=== PATIENT | male | born 1985 | race African-American/Black ===

== ENCOUNTER 2024-07-14 07:00 | Inpatient (IN) | payer BC, MEDICAID ==
[~2024-07-14] VITALS: Ht 182.9 cm; Wt 129.2 kg
--- NOTE | 2024-07-14 07:53 | ED.PDOC ---
GI ASSESSMENT HPI Comments 38 y/o M, presents to the ED for CC of abdominal pain. Patient states, he has been experiencing RUQ abdominal pain with associated symptoms of fever, shortness of breath, and sweats x8 days. Patient comments on, dysuria and dark colored bowel moments. Patient smokes tobacco and marijuana; drinks ETOH occasionally. Patient denies nausea, vomiting, diarrhea, constipation or poor appetite. No other symptoms or modifying factors at this time. Chief Complaint: Abdominal Pain Time Seen by MD: 07:44 Reviewed Notes: Nurses Notes, Medications, Allergies Allergies: Coded Allergies: NO KNOWN ALLERGIES (Unverified , 07/14/24) Information Source: Patient, Significant Other Mode of Arrival: Ambulatory Timing: Days Duration: Since onset Prehospital treatment: None Quality: Sharp Vomitus: None Stool: Other (DARK COLORED) Severity: Moderate Recent Hx of: None Pain Location: RUQ Modifying Factors: Nothing Associated sign and symptoms: Melena, None Past Medical History PAST MEDICAL HISTORY: Denies Surgical History: Denies all surgeries Family History Family History: Unknown Social History Smoker: Cigarettes Alcohol: Occasionally Drugs: Marijuana Lives In: Home Constitutional: reports: fever, sweats; denies: chills, diaphoresis, fatigue, malaise, weakness, others EENTM: denies: blurred vision, double vision, ear bleeding, ear discharge, ear drainage, ear pain, ear ringing, eye pain, eye redness, hearing loss, mouth pain, mouth swelling, nasal discharge, nose bleeding, nose congestion, nose pain, photophobia, tearing, throat pain, throat swelling, voice changes, others Respiratory: reports: shortness of breath; denies: cough, hemoptysis, orthopnea, SOB at rest, SOB with excertion, stridor, wheezing, others Cardiovascular: denies: chest pain, dizzy spells, diaphoresis, Dyspnea on exertion, edema, irregular heart beat, left arm pain, lightheadedness, palpitations, PND, syncope, others Gastrointestinal: reports: abdominal pain; denies: abdomen distended, blood streaked bowels, constipated, diarrhea, dysphagia, difficulty swallowing, hematemesis, melena, nausea, poor appetite, poor fluid intake, rectal bleeding, rectal pain, vomiting, others Genitourinary: denies: burning, dysuria, flank pain, frequency, hematuria, incontinence, penile discharge, penile sore, pain, testicle pain, testicle swelling, urgency, others Neurological: denies: dizziness, fainting, headache, left sided numbness, left sided weakness, numbness, paresthesia, pre-existing deficit, right sided numbness, right sided weakness, seizure, speech problems, tingling, tremors, weakness, others Musculoskeletal: denies: back pain, gout, joint pain, joint swelling, muscle pain, muscle stiffness, neck pain, others Integumetry: denies: bruises, change in color, change in hair/nails, dryness, laceration, lesions, lumps, rash, wounds, others Allergic/Immunocompromised: denies: Difficulty Healing, Frequent Infections, Hives, Itching, others Hematologic/Lymphatic: denies: anemia, blood clots, easy bleeding, easy bruising, swollen glands, others Endocrine: denies: excessive hunger, excessive sweating, excessive thirst, excessive urination, flushing, intolerance to cold, intolerance to heat, unexplained weight gain, unexplained weight loss, others Psychiatric: denies: anxiety, bipolar disorder, depression, hopeless, panic disorder, schizophrenia, sleepless, suicidal, others All Other Systems: Reviewed and Negative Physical Exam General Appearance: Moderate Distress HEENT: Normal ENT Inspection, Pharynx Normal, TMs Normal Neck: Full Range of Motion, Non-Tender, Normal, Normal Inspection Respiratory: Chest Non-Tender, Lungs Clear, No Accessory Muscle Use, No Respiratory Distress, Normal Breath Sounds Cardiovascular: No Edema, No JVD, No Murmur, No Gallop, Normal Peripheral Pulses, Tachycardia Breast Exam: Deferred Gastrointestinal: No Organomegaly, Non Tender, No Pulsatile Mass, Normal Bowel Sounds, Soft Genitalia: Deferred Pelvic: Deferred Rectal: Deferred Extremities: No calf tenderness, Normal capillary refill, Normal inspection, Normal range of motion, Non-tender, No pedal edema Musculoskeletal : Apperance: Normal Neurologic: Alert, raftsman II-XII nml as Tested, No Motor Deficits, Normal Affect, Normal Mood, No Sensory Deficits Cerebellar Function: Normal Reflexes: Normal Skin: Dry, Normal Color, Warm Peripheral Pulses: 3+ Radial (R), 3+ Radial (L) Lymphatic: No Adenopathy Was a procedure done? Was a procedure done?: No GI differential Dx Differential Diagnosis: Bowel Obstruction, Constipation, Esophagitis, Gastritis/PUD, Gastroenteritis, Urolithiasis, Electrolyte Imbalance, Food Poisoning, Bacterial, Viral X-Ray, Labs, Meds, VS Vital Signs Date Time Temp Pulse Resp B/P (MAP) Pulse Ox O2 Delivery O2 Flow Rate FiO2 07/14/24 07:27 99.7 105 16 127/58 (81) 98 Lab Test 07/14/24 08:43 Range/Units White Blood Count 18.6 H 4.4-10.8 10^3/uL Red Blood Count 3.40 L 4.5-5.90 10^6/uL Hemoglobin 10.2 L 13.5-17.5 g/dL Hematocrit 30.7 L 41.0-53.0 % Mean Corpuscular Volume 90.4 80.0-100.0 fL Mean Corpuscular Hemoglobin 30.1 28.0-32.0 pg Mean Corpuscular Hemoglobin Concent 33.3 32.0-36.0 g/dL Red Cell Distribution Width 14.5 H 11.8-14.3 % Platelet Count 362 140-450 10^3/uL Mean Platelet Volume 7.2 6.9-10.8 fL Neutrophils (%) (Auto) 79.7 37.0-80.0 % Lymphocytes (%) (Auto) 8.7 L 10.0-50.0 % Monocytes (%) (Auto) 11.4 0.0-12.0 % Eosinophils (%) (Auto) 0.1 0.0-7.0 % Basophils (%) (Auto) 0.1 0.0-2.0 % Neutrophils # (Auto) 14.8 H 1.6-8.6 10 ^3/uL Lymphocytes # (Auto) 1.6 0.4-5.4 10 ^3/uL Monocytes # (Auto) 2.1 H 0-1.3 10 ^3/uL Eosinophils # (Auto) 0 0-0.8 10 ^3/uL Basophils # (Auto) 0 0-0.2 10 ^3/uL Nucleated Red Blood Cells 0.0 % Sodium Level Pending Potassium Level Pending Chloride Level Pending Carbon Dioxide Level Pending Anion Gap Pending Blood Urea Nitrogen Pending Creatinine Pending Glomerular Filtration Rate Calc Pending BUN/Creatinine Ratio Pending Serum Glucose Pending Calcium Level Pending Lipase Pending Patient alert. Complaining of abdominal pain. Abdomen is soft. Vitals stable. He does not take care himself. WBC elevated. Possible colitis. Establish intravenous access. Was given fluids pain Was given Rocephin. Was given Flagyl. He is anemic. Check for reticulocyte count. Explained to the patient. Continue cardiac monitoring. Time of 1ST Reevaluation: 08:04 Reevaluation 1ST: Unchanged Patient Education/Counseling: Diagnosis, Treatment Family Education/Counseling: Diagnosis, Treatment Departure 1 Departure Time of Disposition: 09:33 Impression: Primary Impression: Sepsis, unspecified organism Qualified Codes: A41.9 - Sepsis, unspecified organism Additional Impression: Nonspecific colitis Disposition: ADMITTED INPATIENT Admit to: Med Surg Condition: Guarded Critical Care Note Critical Care Time?: No Stability Stability form required: No Heart Score Heart Score: Heart Score Response (Comments) Value History N/A 0 EKG N/A 0 Age N/A 0 Risk Factors N/A 0 Troponin N/A 0 Total 0 I personally scribed for ALVIN ARRIAZA MD ([email or web address]) on 07/14/24 at 07:53. Electronically submitted by Karla Ward ([email or web address]). ALVIN ARRIAZA MD Jul 14, 2024 07:53
[2024-07-14 09:19] LABS: Basophils # (auto) 0 10 ^3/uL (0-0.2); Basophils % (auto) 0.1 % (0.0-2.0); Eosinophils # (auto) 0 10 ^3/uL (0-0.8); Eosinophils % (auto) 0.1 % (0.0-7.0); Hematocrit 30.7 % (41.0-53.0); Hemoglobin 10.2 g/dL (13.5-17.5); Lymphocytes # (auto) 1.6 10 ^3/uL (0.4-5.4); Lymphocytes % (auto) 8.7 % (10.0-50.0); Mean Corpuscular Hemoglobin 30.1 pg (28.0-32.0); Mean Corpuscular Hgb Conc. 33.3 g/dL (32.0-36.0); Mean Corpuscular Volume 90.4 fL (80.0-100.0); Monocytes # (auto) 2.1 10 ^3/uL (0-1.3); Monocytes % (auto) 11.4 % (0.0-12.0); Neutrophils # (auto) 14.8 10 ^3/uL (1.6-8.6); Neutrophils % (auto) 79.7 % (37.0-80.0); Platelet Count (auto) 362 10^3/uL (140-450); Red Cell Distribution Width 14.5 % (11.8-14.3); White Blood Cell 18.6 10^3/uL (4.4-10.8)
[2024-07-14 09:25] LABS: Anion Gap 10 (5-15); Carbon Dioxide 27 mmol/L (20-31)
[2024-07-14 09:30] LABS: BUN/Creatinine Ratio 17.2 (10.0-20.0)
[2024-07-14 09:34] LABS: Blood Urea Nitrogen 23 mg/dL (9-23); Calcium 8.7 mg/dL (8.7-10.4); Chloride 93 mmol/L (98-107); Glucose 108 mg/dL (74-106); Potassium 3.4 mmol/L (3.5-5.1); Sodium 130 mmol/L (136-145)
[2024-07-14] MEDS: cefTRIAXone 1GM/50ML D5W 50 ML IV ONE (09:45)
[2024-07-14] MEDS: SODIUM CHLORIDE 0.9% 1,000 ML IV ONE ×2 (09:45)
[2024-07-14] MEDS: metroNIDAZOLE 500MG/100ML 100 ML IV ONE (09:45)
[2024-07-14 09:55] LABS: Lipase 25 U/L (12-53)
[2024-07-14] MEDS: POTASSIUM CHL 20 Meq TABLET PO ONE (17:21)
[2024-07-14] MEDS ORDERED: HYDROcodone-ACET 5/325MG TAB PO PRN (17:30)
[2024-07-14] MEDS ORDERED: MORPHINE SULFATE INJ 2 MG/ml SYRG IV PRN (17:30)
[2024-07-14] MEDS: PIPERACILLIN-TAZOB 3.375GM 100 ML IV ONE (17:30)
[2024-07-14] MEDS ORDERED: ONDANSETRON HCL 4 MG/2 ML VIAL IV PRN (17:30)
--- NOTE | 2024-07-14 17:35 | DVHHP2 ---
History of Present Illness Reason for Visit: Black running stool, dysuria and abdominal pain History of Present Illness Kody Ramirez is a 38-year-old male with no past medical history who presents to the ED for abdominal pain, black runny stool, dysuria, decreased appetite, dysuria, fevers, and sweats x8 days. Patient denies any recent sick contacts or recent ingestion of spoiled food. Patient denies any chest pain, shortness of breath, nausea, vomiting, lightheadedness, weakness, and dizziness. Past Surgical History: None Family History: None Smoke: <1 pack per day ALCOHOL: occassional Drugs: Marijuana Lives: with Family Domestic Violence: Neg Review of Systems Constitutional: No: Fever, Chills, Sweats, Weakness, Malaise, Other Eyes: No: Pain, Vision change, Conjunctivae inflammation, Eyelid inflammation, Other, Redness ENT: No: Ear pain, Ear discharge, Nose pain, Nose discharge, Nose congestion, Mouth pain, Mouth swelling, Throat pain, Throat swelling, Other Respiratory: No: Cough, Dry, Shortness of breath, SOB with excertion, Wheezing, Hemoptysis, Pleuritic Pain, Sputum, Wheezing, Other Cardiovascular: No: Chest Pain, Palpitations, Orthopnea, Paroxysmal Noc. Dyspnea, Edema, Lt Headedness, Other Gastrointestinal: Abdominal Pain, Diarrhea, Melena; No: Nausea, Vomiting, Constipation, Hematochezia, Other Genitourinary: Dysuria, Frequency; No Incontinence, No Hematuria, No Retention, No Other Musculoskeletal: No: other, neck pain, shoulder pain, arm pain, back pain, hand pain, leg pain, foot pain Skin: No: Rash, Lesions, Jaundice, Bruising, Other Neurological: No: Weakness, Numbness, Incoordination, Change in speech, Confusion, Seizures, Other Allergies: Coded Allergies: NO KNOWN ALLERGIES (Unverified , 07/14/24) Medications Current Medications Medications Dose Ordered Sig/Herlinda Route Start Time Stop Time Status Last Admin Dose Admin Piperacillin Sod/ Tazobactam Sod 100 ml @ 25 mls/hr Q8HR IV 07/14/24 22:00 UNV Exam Vital Signs Vital Signs Date Time Temp Pulse Resp B/P (MAP) Pulse Ox O2 Delivery O2 Flow Rate FiO2 07/14/24 17:14 97.9 115 18 121/78 (92) 95 97.9 07/14/24 11:00 Room Air* 0 21 General Appearance: Alert, Oriented X3, Cooperative, No acute distress HEENT: Atraumatic, PERRLA, EOMI, Mucous membr. moist/pink Respiratory: Clear to auscultation, Normal air movement Cardiovascular: Normal S1, Normal S2, No murmurs Abdominal: Soft Extremities: No clubbing, No cyanosis, No edema, Normal pulses, No tenderness/swelling Skin: No rashes, No breakdown, No significant lesion Neuro: Normal gait, Normal speech, Strength at 5/5 X4 ext, Normal tone, Sensation intact Psych/Mental Status: Mental status NL, Mood NL Labs/Xrays Labs Test 07/14/24 08:43 Range/Units White Blood Count 18.6 H 4.4-10.8 10^3/uL Red Blood Count 3.40 L 4.5-5.90 10^6/uL Hemoglobin 10.2 L 13.5-17.5 g/dL Hematocrit 30.7 L 41.0-53.0 % Mean Corpuscular Volume 90.4 80.0-100.0 fL Mean Corpuscular Hemoglobin 30.1 28.0-32.0 pg Mean Corpuscular Hemoglobin Concent 33.3 32.0-36.0 g/dL Red Cell Distribution Width 14.5 H 11.8-14.3 % Platelet Count 362 140-450 10^3/uL Mean Platelet Volume 7.2 6.9-10.8 fL Neutrophils (%) (Auto) 79.7 37.0-80.0 % Lymphocytes (%) (Auto) 8.7 L 10.0-50.0 % Monocytes (%) (Auto) 11.4 0.0-12.0 % Eosinophils (%) (Auto) 0.1 0.0-7.0 % Basophils (%) (Auto) 0.1 0.0-2.0 % Neutrophils # (Auto) 14.8 H 1.6-8.6 10 ^3/uL Lymphocytes # (Auto) 1.6 0.4-5.4 10 ^3/uL Monocytes # (Auto) 2.1 H 0-1.3 10 ^3/uL Eosinophils # (Auto) 0 0-0.8 10 ^3/uL Basophils # (Auto) 0 0-0.2 10 ^3/uL Nucleated Red Blood Cells 0.0 % Sodium Level 130 L 136-145 mmol/L Potassium Level 3.4 L 3.5-5.1 mmol/L Chloride Level 93 L 98-107 mmol/L Carbon Dioxide Level 27 20-31 mmol/L Anion Gap 10 5-15 Blood Urea Nitrogen 23 9-23 mg/dL Creatinine 1.34 H 0.700-1.30 mg/dL Glomerular Filtration Rate Calc 70 >90 mL/min BUN/Creatinine Ratio 17.2 10.0-20.0 Serum Glucose 108 H 74-106 mg/dL Lactic Acid Level 1.2 0.4-2.0 mmol/L Calcium Level 8.7 8.7-10.4 mg/dL Lipase 25 12-53 U/L Assessment/Plan Assessment/Plan Assessment/Plan: Intractable abdominal pain rule out GI bleed Leukocytosis rule out sepsis Anemia Hyponatremia CLINT Dysuria rule out UTI Labs NS 2 L given ED IV antibiotics-Flagyl +ceftriaxone Chest x-ray Lactic Blood cultures Lipase UA Stool occult CT abdomen and pelvis Urine culture ESR CRP GI consult A.m. 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
--- NOTE | 2024-07-14 18:03 | DVH ---
EXAM: CT Abdomen and Pelvis Without Intravenous Contrast CLINICAL INDICATION: abd pain TECHNIQUE: Axial computed tomography images of the abdomen and pelvis without intravenous contrast. This CT exam was performed using one or more of the following dose reduction techniques: automated exposure control, adjustment of the mA and/or kV according to patient size, and/or use of iterative r econstruction technique. CONTRAST: COMPARISON: None FINDINGS: LUNG BASES: Bibasilar atelectasis or scarring. ABDOMEN: LIVER: Multiple ill-defined hypodense lesions of the liver. Further characterization with MRI or CT of the abdomen using liver mass protocol is recommended. GALLBLADDER AND BILE DUCTS: Unremarkable. No calcified stones. No ductal dilation. PANCREAS: Unremarkable. No ductal dilation. SPLEEN: Unremarkable. No splenomegaly. ADRENALS: Unremarkable. No mass. KIDNEYS AND URETERS: Unremarkable. No stones within either kidney. No hydronephrosis. STOMACH AND BOWEL: Colonic diverticulosis. No obstruction. No mucosal thickening. PELVIS: APPENDIX: Normal appendix. BLADDER: Unremarkable. No stones. REPRODUCTIVE: Unremarkable as visualized. ABDOMEN and PELVIS: INTRAPERITONEAL SPACE: Unremarkable. No free air. No significant fluid collection. BONES/JOINTS: No acute fracture. No dislocation. SOFT TISSUES: Unremarkable. VASCULATURE: Unremarkable. No abdominal aortic aneurysm. LYMPH NODES: Unremarkable. No enlarged lymph nodes. OTHER FINDINGS: . . . . . .. IMPRESSION: 1. Normal appendix. 2. Multiple ill-defined hypodense lesions of the liver. Further characterization with MRI or CT of t he abdomen using liver mass protocol is recommended. 3. No obstructive uropathy.
[2024-07-14 18:30] LABS: Urine Amorphous Crystal FEW /hpf (None Seen); Urine Bacteria FEW /hpf (None Seen); Urine Blood TRACE /uL (Negative); Urine Clarity Clear (Clear); Urine Color Yellow (Yellow); Urine Hyaline Cast FEW /lpf (0 - 2); Urine Protein, UAD 1+ (Negative); Urine Specific Gravity 1.021 (1.001-1.035); Urine Squamous Epithelial Cell FEW /hpf (<5); Urine Urobilinogen 3 mg/dL (Negative); Urine WBC 3 /HPF (0-3)
[2024-07-14 18:43] LABS: Amphetamine Screen, Urine Neg (NEGATIVE); Barbiturate Scree,Urine Neg (NEGATIVE); Benzodiazephine Screen, Urine Neg (NEGATIVE); Cannabinoid Screen, Urine Pos (NEGATIVE); Cocaine Screen, Urine Neg (NEGATIVE); Opiate Scree,Urine Neg (NEGATIVE); Phencyclidine Screen, Urine Neg (NEGATIVE)
[2024-07-14 20:23] LABS: Erythrocyte Sedimentation Rate 109 mm/hr (0-20)
[2024-07-14] MEDS: SODIUM CHLORIDE 0.9% 1,000 ML IV SCH (22:00)
[2024-07-14] MEDS: metroNIDAZOLE 500MG/100ML 100 ML IV SCH (22:11)
[2024-07-14] MEDS: PIPERACILLIN-TAZOB 3.375GM 100 ML IV SCH (22:12)
[2024-07-14] MEDS: ACETAMINOPHEN 325 MG TAB PO PRN (22:54)
[2024-07-15] VITALS (7 sets, daily range): BP systolic 102–129; BP diastolic 68–75; PULSE 92–109; RESP 18–22; TEMP 98.5–101.5; O2SAT 90–100
[2024-07-15 08:00] LABS: Basophils # (auto) 0 10 ^3/uL (0-0.2); Basophils % (auto) 0.1 % (0.0-2.0); Eosinophils # (auto) 0 10 ^3/uL (0-0.8); Eosinophils % (auto) 0.1 % (0.0-7.0); Hematocrit 28.9 % (41.0-53.0); Lymphocytes # (auto) 1.8 10 ^3/uL (0.4-5.4); Lymphocytes % (auto) 8.9 % (10.0-50.0); Mean Corpuscular Hemoglobin 31.2 pg (28.0-32.0); Mean Corpuscular Hgb Conc. 34.5 g/dL (32.0-36.0); Mean Corpuscular Volume 90.5 fL (80.0-100.0); Monocytes % (auto) 10.2 % (0.0-12.0); Neutrophils # (auto) 16.1 10 ^3/uL (1.6-8.6); Neutrophils % (auto) 80.7 % (37.0-80.0); Nucleated Red Blood Cells % 0.1 %; Platelet Count (auto) 400 10^3/uL (140-450); Red Blood Cells 3.19 10^6/uL (4.5-5.90); Red Cell Distribution Width 14.7 % (11.8-14.3)
[2024-07-15 08:22] LABS: Albumin 4.2 g/dL (3.2-4.8); Anion Gap 11 (5-15); BUN/Creatinine Ratio 16.1 (10.0-20.0); Calcium 8.7 mg/dL (8.7-10.4); Carbon Dioxide 25 mmol/L (20-31); Glucose 101 mg/dL (74-106); Potassium 3.9 mmol/L (3.5-5.1); Total Protein 8.1 g/dL (5.7-8.2)
[2024-07-15 08:23] LABS: Alanine Aminotransferase 180 U/L (7-40); Alkaline Phosphatase 196 U/L (46-116); Aspartate Aminotransferase 169 U/L (13-40); Bilirubin, Total 1.7 mg/dL (0.2-1.0); Blood Urea Nitrogen 24 mg/dL (9-23); Chloride 97 mmol/L (98-107); Sodium 133 mmol/L (136-145)
--- NOTE | 2024-07-15 09:18 | DVHCONRES ---
Date Seen: Jul 15, 2024 Resident Creating Document: JASON RO RESIDENT History of Present Illness Mr. Gates is a 38-year-old male with no past medical history who presented to the ER with a complaint of right upper quadrant pain and melena for the past 8 days. Associated features include fever, chills, low appetite, diarrhea. He has been having 4-5 loose watery tarry black bowel movements for the past few days. Abdominal pain is right-sided, intermittent, increases with any kind of bodily movement or food. He reports no travel history/hiking or dining outside. Lives with his . Patient is monogamous. Reports smoking half a pack a day for the past 5 years, quit 2 weeks back Reports drinking 4-5 shots a day Reports using cannabis Denies injection drug use Has no PCP and has never seen a physician Family history is unremarkable Patient seen and examined at the bedside. Ultrasound liver along with the stool studies ordered. Family History: Patient reports no known family medical history. Allergies: Coded Allergies: NO KNOWN ALLERGIES (Unverified , 07/14/24) Current Medications Current Medications Medications (Trade) Dose Ordered Sig/Herlinda Route PRN Reason Start Time Stop Time Status Last Admin Piperacillin Sod/ Tazobactam Sod 100 ml @ 25 mls/hr Q8HR IV 07/14/24 22:00 07/15/24 06:32 Sodium Chloride 1,000 ml @ 100 mls/hr Q10H IV 07/14/24 17:30 07/14/24 22:00 Acetaminophen/ Hydrocodone Bitart ([place] 5/325MG Tab) 1 tab Q4HP PRN PO MODERATE PAIN (4-6 PAIN SCALE) 07/14/24 17:30 Ondansetron HCl (Zofran) 4 mg Q4HP PRN IV NAUSEA / VOMITING 07/14/24 17:30 Acetaminophen (Tylenol Tablet) 650 mg Q6HP PRN PO PAIN SCALE 1-3 OR TEMP>100.4 07/14/24 17:30 07/15/24 08:40 Morphine Sulfate 2 mg Q4HPRN PRN IV SEVERE PAIN (7-10 PAIN SCALE) 07/14/24 17:30 Metronidazole 100 ml @ 100 mls/hr Q8HR IV 07/14/24 22:00 07/15/24 05:57 Ceftriaxone Sodium 50 ml @ 100 mls/hr DAILY@09 IV 07/15/24 09:00 Pantoprazole Sodium (Protonix) 40 mg DAILY IV 07/15/24 10:00 Review of Systems Constitutional: Reports low appetite, generalized weakness Eyes: No Pain, No Vision change, No Conjunctivae inflammation, No Eyelid inflammation, No Other, No Redness ENT: No Ear pain, No Ear discharge, No Nose pain, No Nose discharge, No Nose congestion, No Mouth pain, No Mouth swelling, No Throat pain, No Throat swelling, No Other Cardiovascular: No Chest Pain, No Palpitations, No Orthopnea, No PND, No Edema, No Lt Headedness, No Other Respiratory: No Cough, No Dry, No Shortness of breath, No SOB with exertion, No Wheezing, No Hemoptysis, No Pleuritic Pain, No Sputum, No Other Gastrointestinal: Reports abdominal pain, diarrhea, melena. Denies constipation denies nausea, vomiting. Genitourinary: No Dysuria, No Frequency, No Incontinence, No Hematuria, No Retention, No Other Musculoskeletal: No other, No neck pain, No shoulder pain, No arm pain, No back pain, No hand pain, No leg pain, No foot pain Skin: No Rash, No Lesions, No Jaundice, No Bruising, No Other Vital Signs Vital Signs Date Time Temp Pulse Resp B/P (MAP) Pulse Ox O2 Delivery O2 Flow Rate FiO2 07/15/24 08:40 101.5 07/15/24 05:00 105 18 117/70 (86) 94 07/15/24 01:51 Room Air* 0 21 Physical Exam Morbidly obese male patient lying in bed, in no acute distress General: Obese, afebrile, palor, mucosae are moist Cardiovascular: Regular S1 and S2. No murmurs, gallops or rubs. No JVD elevation. No pedal edema Respiratory: Normal B/L air entry on room air. Clear lung sounds on auscultation Abdomen: Soft, nontender, nondistended, normoactive bowel sounds, no rebound tenderness, no organomegaly, no masses Genitourinary: Deferred MSK/skin: Mobilizes 4 limbs. Skin is dry and warm Neurological: No motor, no sensitive deficits, normal speech. Pupils are isocoric and reactive. Psych/Mental Status: A/Ox3 Labs/Diagnostic Data Labs Test 07/15/24 07:28 07/14/24 17:42 07/14/24 17:22 07/14/24 08:43 Range/Units White Blood Count 20.0 H 4.4-10.8 10^3/uL Red Blood Count 3.19 L 4.5-5.90 10^6/uL Hemoglobin 10.0 L 13.5-17.5 g/dL Hematocrit 28.9 L 41.0-53.0 % Mean Corpuscular Volume 90.5 80.0-100.0 fL Mean Corpuscular Hemoglobin 31.2 28.0-32.0 pg Mean Corpuscular Hemoglobin Concent 34.5 32.0-36.0 g/dL Red Cell Distribution Width 14.7 H 11.8-14.3 % Platelet Count 400 140-450 10^3/uL Mean Platelet Volume 7.1 6.9-10.8 fL Neutrophils (%) (Auto) 80.7 H 37.0-80.0 % Lymphocytes (%) (Auto) 8.9 L 10.0-50.0 % Monocytes (%) (Auto) 10.2 0.0-12.0 % Eosinophils (%) (Auto) 0.1 0.0-7.0 % Basophils (%) (Auto) 0.1 0.0-2.0 % Neutrophils # (Auto) 16.1 H 1.6-8.6 10 ^3/uL Lymphocytes # (Auto) 1.8 0.4-5.4 10 ^3/uL Monocytes # (Auto) 2.0 H 0-1.3 10 ^3/uL Eosinophils # (Auto) 0 0-0.8 10 ^3/uL Basophils # (Auto) 0 0-0.2 10 ^3/uL Nucleated Red Blood Cells 0.1 % Sodium Level 133 L 136-145 mmol/L Potassium Level 3.9 3.5-5.1 mmol/L Chloride Level 97 L 98-107 mmol/L Carbon Dioxide Level 25 20-31 mmol/L Anion Gap 11 5-15 Blood Urea Nitrogen 24 H 9-23 mg/dL Creatinine 1.49 H 0.700-1.30 mg/dL Glomerular Filtration Rate Calc 62 >90 mL/min BUN/Creatinine Ratio 16.1 10.0-20.0 Serum Glucose 101 74-106 mg/dL Calcium Level 8.7 8.7-10.4 mg/dL Total Bilirubin 1.7 H 0.2-1.0 mg/dL Aspartate Amino Transferase (AST) 169 H 13-40 U/L Alanine Aminotransferase (ALT) 180 H 7-40 U/L Alkaline Phosphatase 196 H 46-116 U/L Total Protein 8.1 5.7-8.2 g/dL Albumin 4.2 3.2-4.8 g/dL Stool Occult Blood Negative Negative Stool Occult Blood Sample #3 Negative Urine Color Yellow Yellow Urine Clarity Clear Clear Urine pH 6.0 5.0-9.0 Urine Specific [place] 1.021 1.001-1.035 Urine Protein 1+ H Negative Urine Ketones Negative Negative Urine Blood Trace H Negative /uL Urine Nitrite Negative Negative Urine Bilirubin 1+ Negative Urine Urobilinogen 3 H Negative mg/dL Urine Leukocyte Esterase Negative Negative /uL Urine RBC 1 0 - 3 /hpf Urine Microscopic WBC 3 0-3 /HPF Urine Squamous Epithelial Cells Few <5 /hpf Urine Amorphous Crystals Few None Seen /hpf Urine Bacteria Few H None Seen /hpf Urine Hyaline Casts Few 0 - 2 /lpf Urine Glucose Normal Normal mg/dL Urine Opiates Screen Neg NEGATIVE Urine Fentanyl Screen Neg NEGATIVE Urine Barbiturates Screen Neg NEGATIVE Urine Phencyclidine Screen Neg NEGATIVE Urine Amphetamines Screen Neg NEGATIVE Urine Benzodiazepines Screen Neg NEGATIVE Urine Cocaine Screen Neg NEGATIVE Urine Cannabinoids Screen Pos NEGATIVE Erythrocyte Sedimentation Rate 109 H 0-20 mm/hr Lactic Acid Level 1.2 0.4-2.0 mmol/L C-Reactive Protein High Sensitivity > 20.00 H <1.0 mg/dL Lipase 25 12-53 U/L Microbiology Date/Time Source Procedure Growth Status 07/14/24 17:22 Voided Urine Urine Culture - Preliminary Resulted Assessment Sepsis secondary to ? Pyogenic liver abscesses Melena Anemia secondary to above Transaminitis secondary to liver abscess versus alcoholic liver disease CLINT, likely vasomotor mediated Hyponatremia Chronic alcoholism Cannabis dependence Morbid obesity Plan: Given the fever, chills, elevated WBC count, elevated ESR and CRP, and CT abdomen showing Multiple ill-defined hypodense lesions of the liver, patient likely has pyogenic liver abscess. He has poor prognostic factors including sepsis, follow up with liver ultrasound/stool studies. Given the patient has a elevated creatinine, we can not go ahead with contrast study at this time. IR consulted for drainage and culture. Send for culture and studies. Continue with IV meropenam We will closely monitor the patient. Plan discussed with patient and his at the bedside Case discussed with Dr. Sal. Plan discussed with: Patient, Spouse JASON RO RESIDENT Jul 15, 2024 09:18
[2024-07-15] MEDS: cefTRIAXone 1GM/50ML D5W 50 ML IV SCH (09:24)
[2024-07-15] MEDS: PANTOPRAZOLE 40 MG/10 ML VIAL INJ IV SCH (09:24)
--- NOTE | 2024-07-15 10:31 | DVH ---
INDICATION: transamninitis TECHNIQUE: Multiple real-time sonographic images were obtained of the right upper quadrant. COMPARISON: None FINDINGS: Liver measures 23 cm. 12 cm heterogeneous mass right hepatic lobe. MRI liver mass protocol recommended. The gallbladder is without evidence of stone or sludge. The gallbladder wall measures 0.2 mm and is within normal limits. The right kidney measures 14 cm. The right kidney is normal in contour, size, and shape. The echog enicity is normal. There is no hydronephrosis. The pancreas is not well visualized due to overlying bowel gas. IMPRESSION: Liver measures 23 cm. 12 cm heterogeneous mass right hepatic lobe. MRI liver mass protocol recommende d. Hepatic steatosis.
[2024-07-15 11:37] LABS: INR 1.47 (0.9-1.15)
[2024-07-15] MEDS: MEROPENEM 1GM IVPB 50 ML IV ONE (14:33)
[2024-07-15] MEDS: SODIUM CHLORIDE 0.9% 2,000 ML IV ONE (14:50)
--- NOTE | 2024-07-15 16:40 | DVHPNRES ---
Progress Note Date Seen: Jul 15, 2024 Resident Creating Document: DIANNE MARROQUIN RESIDENT Has the PT tested + for MRSA If YES, has PT been informed?: No Medical Necessity Reason Pt with a Central, PICC or Fol: No Subjective Review of Systems A 38 y old with non PMHx, came to ED due to abdominal pain in the RUQ for a week, he stated fever, chills, anorexia and diarrhea Pt drinks alcohol everyday and uses CBD, used to smoke but quitted 2 weeks ago Objective vital signs Vital Sign Date Time Temp Pulse Resp B/P (MAP) Pulse Ox O2 Delivery O2 Flow Rate FiO2 07/15/24 13:00 98.8 96 20 125/68 (87) 93 98.8 07/15/24 07:50 Room Air* 0 21 Total Intake and Output 07/14/24 07/14/24 07/15/24 15:00 23:00 07:00 Intake Total 1150 ml 100 ml Balance 1150 ml 100 ml medications Current Medications Medications Dose Ordered Sig/Herlinda Route Start Time Stop Time Status Last Admin Dose Admin Acetaminophen 650 mg Q6HP PRN PO 07/14/24 17:30 07/15/24 08:40 650 MG Pantoprazole Sodium 40 mg DAILY IV 07/15/24 10:00 07/15/24 09:24 40 MG Meropenem 50 ml @ 17 mls/hr Q8HR IV 07/15/24 14:00 Sodium Chloride 1,000 ml @ 150 mls/hr Q6H40M IV 07/15/24 15:45 Examination Morbidly obese male patient lying in bed, in no acute distress General: Obese, afebrile, palor, mucosae are moist Cardiovascular: Regular S1 and S2. No murmurs, gallops or rubs. No JVD elevation. No pedal edema Respiratory: Normal B/L air entry on room air. Clear lung sounds on auscultation Abdomen: Soft, nontender, nondistended, normoactive bowel sounds, no rebound tenderness, no organomegaly, no masses Genitourinary: Deferred MSK/skin: Mobilizes 4 limbs. Skin is dry and warm Neurological: No motor, no sensitive deficits, normal speech. Pupils are isocoric and reactive. Psych/Mental Status: A/Ox3 laboratory and microbiology Laboratory Tests 07/15/24 07:28 Test 07/15/24 07:28 Range/Units Serum Glucose 101 74-106 mg/dL Microbiology Date/Time Source Procedure Growth Status 07/14/24 17:22 Voided Urine Urine Culture - Preliminary Resulted 07/14/24 10:17 Blood Blood Culture - Preliminary NO GROWTH AFTER 24 HOURS OF INCUBATION. Resulted Problem List/Assessment/Plan Problem List/Assessment/Plan #Sepsis secondary to ? #Liver mass #Possible Pyogenic liver abscesses #Melena #Anemia secondary to above #Transaminitis secondary to liver abscess versus alcoholic liver disease #CLINT, likely vasomotor mediated #Hyponatremia #Chronic alcoholism #Cannabis dependence #Morbid obesity Regular diet IV fluid Meropenem IV CT scan showed Multiple ill-defined hypodense lesions of the liver. Radiology states that the images didnt look like abscess and further images are required Further images are gonna be done as soon the kidney function improves Plan discussed with patient and his at the bedside Case discussed with Time spent on care 23 min Plan discussed with: Patient, Other (rn) My Orders My Orders Orders - DIANNE MARROQUIN RESIDENT Procedure Category Date Status Time Meropenem 1gm Ivpb PHA 07/15/24 In Process (Merrem 1gm/ Ns) 14:00 Acute Hepatitis Panel LAB 07/15/24 In Process 11:21 Ova & Parasite Exam JUSTYNA 07/15/24 Uncollected 11:21 Regular Diet DIET 07/15/24 Transmitted Dinner Sodium Chloride 0.9% PHA 07/15/24 In Process 15:45 Date of Service: Jul 15, 2024 Billing Provider: ELEAZAR DÍAZ MD Common Visit Codes: [id number] INP/OBS CARE(HIGH) DIANNE MARROQUIN RESIDENT Jul 15, 2024 16:40 ELEAZAR DÍAZ MD Jul 16, 2024 19:15
[2024-07-15] MEDS: SODIUM CHLORIDE 0.9% 1,000 ML IV SCH (16:41)
[2024-07-15] MEDS: MEROPENEM 1GM IVPB 50 ML IV SCH (16:41)
[2024-07-16 00:07] LABS: COVID19 ANTIGEN SOFIA FIA NEGATIVE (NEGATIVE); Rapid Influenza A Negative (Negative); Rapid Influenza B Negative (Negative)
[2024-07-16 01:00] VITALS: BP 117/67; PULSE 96; RESP 22; TEMP 100.9; O2SAT 95
[2024-07-16 03:21] LABS: Basophils # (auto) 0.1 10 ^3/uL (0-0.2); Basophils % (auto) 0.3 % (0.0-2.0); Eosinophils # (auto) 0 10 ^3/uL (0-0.8); Eosinophils % (auto) 0.1 % (0.0-7.0); Hematocrit 28.7 % (41.0-53.0); Hemoglobin 9.7 g/dL (13.5-17.5); Lymphocytes % (auto) 11.1 % (10.0-50.0); Mean Corpuscular Hemoglobin 30.7 pg (28.0-32.0); Mean Corpuscular Hgb Conc. 33.8 g/dL (32.0-36.0); Mean Corpuscular Volume 90.8 fL (80.0-100.0); Monocytes # (auto) 1.5 10 ^3/uL (0-1.3); Monocytes % (auto) 8.3 % (0.0-12.0); Neutrophils # (auto) 14.6 10 ^3/uL (1.6-8.6); Neutrophils % (auto) 80.2 % (37.0-80.0); Platelet Count (auto) 396 10^3/uL (140-450); Red Blood Cells 3.16 10^6/uL (4.5-5.90); Red Cell Distribution Width 14.6 % (11.8-14.3); White Blood Cell 18.2 10^3/uL (4.4-10.8)
[2024-07-16 03:38] LABS: Albumin 3.5 g/dL (3.2-4.8); Anion Gap 9 (5-15); BUN/Creatinine Ratio 15.5 (10.0-20.0); Blood Urea Nitrogen 17 mg/dL (9-23); Carbon Dioxide 24 mmol/L (20-31); Chloride 101 mmol/L (98-107); Glucose 105 mg/dL (74-106); Magnesium 2.5 mg/dL (1.6-2.6); Potassium 3.8 mmol/L (3.5-5.1)
[2024-07-16 03:39] LABS: Total Protein 7.2 g/dL (5.7-8.2)
[2024-07-16 03:41] LABS: Alanine Aminotransferase 156 U/L (7-40); Alkaline Phosphatase 194 U/L (46-116); Aspartate Aminotransferase 143 U/L (13-40); Bilirubin, Total 1.5 mg/dL (0.2-1.0); Calcium 8.3 mg/dL (8.7-10.4); Sodium 134 mmol/L (136-145)
[2024-07-16 05:00] VITALS: BP 123/76; PULSE 105; RESP 22; TEMP 98.5; O2SAT 94
[2024-07-16 09:00] VITALS: BP 112/70; PULSE 103; RESP 18; TEMP 101.6; O2SAT 93
[2024-07-16 09:06] LABS: AFP Serum Tumor Marker <1.8 ng/mL (0.0-6.9); Carbohydrate Antigen 19-9 <2 U/mL (0-35)
--- NOTE | 2024-07-16 10:06 | DVHPNRES ---
Progress Note Date Seen: Jul 16, 2024 Resident Creating Document: DIANNE MARROQUIN RESIDENT Has the PT tested + for MRSA If YES, has PT been informed?: No Medical Necessity Reason Pt with a Central, PICC or Fol: No Subjective Review of Systems A 38 y old with non PMHx, came to ED due to abdominal pain in the RUQ for a week, he stated fever, chills, anorexia and diarrhea Pt drinks alcohol everyday and uses CBD, used to smoke but quitted 2 weeks ago Objective vital signs Vital Sign Date Time Temp Pulse Resp B/P (MAP) Pulse Ox O2 Delivery O2 Flow Rate FiO2 07/16/24 09:00 101.6 103 18 112/70 (84) 93 101.6 07/15/24 20:00 Room Air* 0 21 Total Intake and Output 07/15/24 07/15/24 07/16/24 15:00 23:00 07:00 Intake Total 50 ml 1225 ml 950 ml Balance 50 ml 1225 ml 950 ml medications Current Medications Medications Dose Ordered Sig/Herlinda Route Start Time Stop Time Status Last Admin Dose Admin Acetaminophen 650 mg Q6HP PRN PO 07/14/24 17:30 07/15/24 21:11 650 MG Pantoprazole Sodium 40 mg DAILY IV 07/15/24 10:00 07/16/24 09:55 40 MG Meropenem 50 ml @ 17 mls/hr Q8HR IV 07/15/24 14:00 07/16/24 06:36 17 MLS/HR Sodium Chloride 1,000 ml @ 150 mls/hr Q6H40M IV 07/15/24 15:45 07/16/24 05:05 150 MLS/HR Examination Morbidly obese male patient lying in bed, in no acute distress General: Obese, afebrile, palor, mucosae are moist Cardiovascular: Regular S1 and S2. No murmurs, gallops or rubs. No JVD elevation. No pedal edema Respiratory: Normal B/L air entry on room air. Clear lung sounds on auscultation Abdomen: Soft, nontender, nondistended, normoactive bowel sounds, no rebound tenderness, no organomegaly, no masses Genitourinary: Deferred MSK/skin: Mobilizes 4 limbs. Skin is dry and warm Neurological: No motor, no sensitive deficits, normal speech. Pupils are isocoric and reactive. Psych/Mental Status: A/Ox3 laboratory and microbiology Laboratory Tests 07/16/24 02:43 Test 07/16/24 02:43 Range/Units Serum Glucose 105 74-106 mg/dL Microbiology Date/Time Source Procedure Growth Status 07/14/24 17:22 Voided Urine Urine Culture - Preliminary Resulted 07/14/24 10:17 Blood Blood Culture - Preliminary NO GROWTH AFTER 24 HOURS OF INCUBATION. Resulted Problem List/Assessment/Plan Problem List/Assessment/Plan #Sepsis secondary to ? #Liver mass #Possible Pyogenic liver abscesses #Melena #Anemia secondary to above #Transaminitis secondary to liver abscess versus alcoholic liver disease #CLINT, likely vasomotor mediated resolved #Hyponatremia #Chronic alcoholism #Cannabis dependence #Morbid obesity Regular diet IV fluid Meropenem IV CT scan showed Multiple ill-defined hypodense lesions of the liver. Radiology states that the images didnt look like abscess and further images are required: MRI ordered Plan discussed with patient and his at the bedside Case discussed with Time spent on care 23 min Plan discussed with: Patient, Other (rn) My Orders My Orders Orders - DIANNE MARROQUIN RESIDENT Procedure Category Date Status Time Meropenem 1gm Ivpb PHA 07/15/24 In Process (Merrem 1gm/ Ns) 14:00 Acute Hepatitis Panel LAB 07/15/24 In Process 11:21 Ova & Parasite Exam JUSTYNA 07/15/24 Uncollected 11:21 Regular Diet DIET 07/15/24 Transmitted Dinner Sodium Chloride 0.9% PHA 07/15/24 In Process 15:45 Mri Abd & Plevis W/Wo MRI 07/16/24 Logged Cont 09:46 Date of Service: Jul 16, 2024 Billing Provider: ELEAZAR DÍAZ MD Common Visit Codes: [id number] INP/OBS CARE(HIGH) DIANNE MARROQUIN RESIDENT Jul 16, 2024 10:06 ELEAZAR DÍAZ MD Jul 16, 2024 19:15
[2024-07-16 13:00] VITALS: BP 124/77; PULSE 97; RESP 20; TEMP 100.9; O2SAT 95
[2024-07-16 17:00] VITALS: BP 130/85; PULSE 107; RESP 16; TEMP 100.6; O2SAT 93
[2024-07-16 21:00] VITALS: BP_SYST 151; BP_SYST 97; BP_DIAS 46; BP_DIAS 70; PULSE 105; PULSE 68; RESP 17; RESP 18; TEMP 100.1; TEMP 97; O2SAT 94
[2024-07-16] MEDS ORDERED: ACETAMINOPHEN 325 MG TAB PO SCH (22:00)
--- NOTE | 2024-07-16 22:05 | DVHPN2 ---
Progress Note - Dictate Date Seen: Jul 16, 2024 Has the PT tested + for MRSA If YES, has PT been informed?: No Medical Necessity Reason Pt with a Central, PICC or Fol: No Subjective A 38 y old with non PMHx, came to ED due to abdominal pain in the RUQ for a week, he stated fever, chills, anorexia and diarrhea Pt drinks alcohol everyday and uses CBD, used to smoke but quitted [address] scan was suggestive of liver masses Workup is also suspicious for possible differential diagnosis of pyogenic liver abscess Patient has been started on IV antibiotics Leukocytosis persists Tumor markers are negative vital signs Vital Sign Date Time Temp Pulse Resp B/P (MAP) Pulse Ox O2 Delivery O2 Flow Rate FiO2 07/16/24 19:56 100.5 07/16/24 17:00 107 16 130/85 (100) 93 07/16/24 07:30 Room Air* 0 21 Total Intake and Output 07/15/24 07/15/24 07/16/24 15:00 23:00 07:00 Intake Total 50 ml 1225 ml 950 ml Balance 50 ml 1225 ml 950 ml medications Current Medications Medications Dose Ordered Sig/Herlinda Route Start Time Stop Time Status Last Admin Dose Admin Acetaminophen 650 mg Q6HP PRN PO 07/14/24 17:30 07/16/24 18:56 650 MG Pantoprazole Sodium 40 mg DAILY IV 07/15/24 10:00 07/16/24 09:55 40 MG Meropenem 50 ml @ 17 mls/hr Q8HR IV 07/15/24 14:00 07/16/24 13:36 17 MLS/HR Sodium Chloride 1,000 ml @ 150 mls/hr Q6H40M IV 07/15/24 15:45 07/16/24 18:30 150 MLS/HR Acetaminophen 1,000 mg TID PO 07/16/24 22:00 UNV objective Morbidly obese male patient lying in bed, in no acute distress General: Obese, afebrile, palor, mucosae are moist Cardiovascular: Regular S1 and S2. No murmurs, gallops or rubs. No JVD elevation. No pedal edema Respiratory: Normal B/L air entry on room air. Clear lung sounds on auscultation Abdomen: Soft, nontender, nondistended, normoactive bowel sounds, no rebound tenderness, no organomegaly, no masses Genitourinary: Deferred MSK/skin: Mobilizes 4 limbs. Skin is dry and warm Neurological: No motor, no sensitive deficits, normal speech. Pupils are isocoric and reactive. Psych/Mental Status: A/Ox3 laboratory and microbiology Laboratory Tests 07/16/24 02:43 Test 07/16/24 02:43 Range/Units Serum Glucose 105 74-106 mg/dL Problems(with codes): (1) Abnormal finding on GI tract imaging (2) Sepsis, unspecified organism (3) Nonspecific colitis Prognosis Plan Interventional radiology consult to potentially try to drain the larger pyogenic liver abscess If the lesions appears to not be an abscess then an interventional radiology consult still needs to be needed to get a IR guided liver biopsy Continue IV antibiotics IV fluid hydration Tumor markers are negative Stool for WBC shows rare WBC,; stool occult blood is negative Plan discussed with: Patient, Spouse, Other (Vanessa) SILVIO RODRIGUEZ MD Jul 16, 2024 22:05
[2024-07-17 01:00] VITALS: BP_SYST 126; BP_SYST 97; BP_DIAS 46; BP_DIAS 85; PULSE 107; PULSE 68; RESP 17; TEMP 97.7; TEMP 98.6; O2SAT 94
[2024-07-17 04:56] LABS: Basophils # (auto) 0.1 10 ^3/uL (0-0.2); Eosinophils # (auto) 0 10 ^3/uL (0-0.8); Hemoglobin 9.8 g/dL (13.5-17.5)
[2024-07-17 05:00] VITALS: BP 126/74; PULSE 106; RESP 18; TEMP 100.1; O2SAT 94
[2024-07-17 05:00] LABS: Basophils % (auto) 0.5 % (0.0-2.0); Eosinophils % (auto) 0.2 % (0.0-7.0); Lymphocytes # (auto) 2.5 10 ^3/uL (0.4-5.4); Lymphocytes % (auto) 12.4 % (10.0-50.0); Mean Corpuscular Hemoglobin 30.9 pg (28.0-32.0); Mean Corpuscular Volume 90.9 fL (80.0-100.0); Monocytes # (auto) 1.8 10 ^3/uL (0-1.3); Monocytes % (auto) 8.9 % (0.0-12.0); Neutrophils # (auto) 16.1 10 ^3/uL (1.6-8.6); Platelet Count (auto) 453 10^3/uL (140-450); Red Blood Cells 3.19 10^6/uL (4.5-5.90); Red Cell Distribution Width 14.9 % (11.8-14.3); White Blood Cell 20.6 10^3/uL (4.4-10.8)
[2024-07-17 05:19] LABS: Albumin 3.7 g/dL (3.2-4.8); Anion Gap 8 (5-15); Blood Urea Nitrogen 12 mg/dL (9-23); Calcium 8.8 mg/dL (8.7-10.4); Carbon Dioxide 25 mmol/L (20-31); Chloride 102 mmol/L (98-107); Potassium 4.2 mmol/L (3.5-5.1)
[2024-07-17 05:20] LABS: Total Protein 7.5 g/dL (5.7-8.2)
[2024-07-17 05:25] LABS: Alanine Aminotransferase 161 U/L (7-40); Alkaline Phosphatase 190 U/L (46-116); Aspartate Aminotransferase 132 U/L (13-40); Bilirubin, Total 1.2 mg/dL (0.2-1.0); Glucose 107 mg/dL (74-106); Sodium 135 mmol/L (136-145)
[2024-07-17 09:00] VITALS: BP 120/54; PULSE 104; RESP 20; TEMP 100; O2SAT 97
[2024-07-17] MEDS ORDERED: KETOROLAC TROMETH 30 MG/ML 1ML VIAL IV PRN (09:00)
[2024-07-17] MEDS: ACETAMINOPHEN 325 MG TAB PO PRN (11:01)
[2024-07-17 13:00] VITALS: BP 129/71; PULSE 95; RESP 16; TEMP 98.9; O2SAT 95
--- NOTE | 2024-07-17 13:55 | DVH ---
Exam: CT CT AB PEL WITH IV CON ONLY History: liver abscess COMPARISON: CT abdomen/ pelvis 07/14/2024; liver ultrasound 07/15/2024 Technique: Multidetector spiral CT of the abdomen and pelvis was performed from lung bases to pubic s ymphysis. Intravenous contrast was administered during this examination. Multiphasic imaging was ob tained. Axial, coronal and sagittal multiplanar reformats were performed by the technologist on a [employer] workstation. Radiation Dose : 1. Abdomen/Pelvis: CTDIvol 87 mGy, DLP 4080.28 mGy*cm. CONTRAST: 100 mL Omnipaque 300 Findings: Lung Bases: Zcygo-[id number]-[id number]-left subsegmental atelectasis. Visualized heart is unremarkable. Liver: Liver measures up to 29 cm in craniocaudal length. In the right posterior hepatic lobe there i s a large multi-septated hypodense lesion measuring 9.4 x 10.2 x 13.7 cm (AP by TV by cc). There are a couple of poorly defined hypodense lesions adjacent to this measuring up to a couple centimeters. N o evidence nodular enhancement on any phase. No evidence of delayed contrast fill-in. Additional mult i-septated lesion in the anterior aspect of the right hepatic lobe measuring 3.8 x 4.6 x 4.8 cm. Gallbladder and Biliary Tree: Unremarkable Spleen: Unremarkable Pancreas: The pancreas is normal in appearance without focal lesions or abnormal enhancement. Adrenal Glands: Unremarkable Kidneys: No hydronephrosis. Bladder: Unremarkable Bowel: The stomach is grossly normal in appearance. Small bowel and colon are normal in caliber and d istribution. Colonic diverticulosis without evidence of diverticulitis. Normal appendix is visualized in the right lower quadrant without findings of appendicitis. Ascites: Absent Lymphadenopathy: No mesenteric, retroperitoneal or periportal lymphadenopathy. Abdominal Wall and Mesentery: Unremarkable. Vasculature: The visualized abdominal aorta is normal in size and caliber. Abdominal and pelvic vess els demonstrate normal enhancement. Pelvic Organs: Unremarkable Musculoskeletal: No aggressive focal bony lesions, acute fractures or dislocation. IMPRESSION: 1. Large multi-septate lesion in the right hepatic lobe measuring up to 13.7 cm. Small satellite lesi ons directly adjacent to this, as well as an additional multiseptate lesion in the anterior right hep atic lobe measuring up to 4.8 cm. Findings are favored to represent hepatic abscesses; however, a cys tic neoplasm can not be entirely excluded by imaging. 2. Mild nonspecific stranding in the right hepatorenal recess. Radiation optimization: All CT scans at this facility use at least one of these dose optimization sandy hniques: automated exposure control mA and/or kV adjustment per patient size (includes targeted exam s where dose is matched to clinical indication) or iterative reconstruction.
[2024-07-17] MEDS: KETOROLAC TROMETH 30 MG/ML 1ML VIAL IV PRN (13:57)
[2024-07-17] MEDS ORDERED: ACETAMINOPHEN 325 MG TAB PO SCH (14:00)
--- NOTE | 2024-07-17 16:40 | DVHPNRES ---
Progress Note Date Seen: Jul 17, 2024 Resident Creating Document: WILL ANHTONYFIONA RESIDENT Has the PT tested + for MRSA If YES, has PT been informed?: No Medical Necessity Reason Pt with a Central, PICC or Fol: No Subjective Review of Systems Patient reported pain in the right upper quadrant, moderate in intensity 5/10 Reports passing flatus and bowel movement, no melena or hematochezia Patient was noted to have fever 100 F following which acetaminophen 650 mg was given, cooling measures Patient was advised to get a MRI abdomen done for better imaging of the liver abscess but he denied as he can not tolerate being in the MRI machine for long. CT abdomen pelvis with triple phase contrast was done Objective vital signs Vital Sign Date Time Temp Pulse Resp B/P (MAP) Pulse Ox O2 Delivery O2 Flow Rate FiO2 07/17/24 13:00 98.9 95 16 129/71 (90) 95 98.9 07/17/24 07:30 Room Air* 0 21 Total Intake and Output 07/16/24 07/16/24 07/17/24 15:00 23:00 07:00 Intake Total 550 ml 980 ml 50 ml Balance 550 ml 980 ml 50 ml medications Current Medications Medications Dose Ordered Sig/Herlinda Route Start Time Stop Time Status Last Admin Dose Admin Pantoprazole Sodium 40 mg DAILY IV 07/15/24 10:00 07/17/24 10:33 40 MG Meropenem 50 ml @ 17 mls/hr Q8HR IV 07/15/24 14:00 07/17/24 13:57 17 MLS/HR Sodium Chloride 1,000 ml @ 150 mls/hr Q6H40M IV 07/15/24 15:45 07/16/24 18:30 150 MLS/HR Acetaminophen 1,000 mg TID PO 07/16/24 22:00 UNV Acetaminophen 650 mg Q8HR PO 07/17/24 14:00 UNV Acetaminophen 650 mg Q6HP PRN PO 07/17/24 10:45 07/17/24 11:01 650 MG Ketorolac Tromethamine 15 mg Q6HPRN PRN IV 07/17/24 11:30 07/22/24 11:29 07/17/24 13:57 15 MG Examination Physical Examination Constitutional: Patient was alert and oriented to time, place and person and appears to be in mild abdominal discomfort, no respiratory distress noted Gen - no pallor, mild scleral icterus, no cyanosis, no clubbing, no LAD, no edema . Skin - Patients skin is warm and dry. HEENT - normocephalic, atraumatic, dry mucous membranes. Neck - full ROM, no LAD, no JVD Pulmonary - B/L vesicular breath sounds. no crackles , no wheezing cardiovascular - normal S1,S2 heard. no murmurs heard. peripheral pulses normal radial 2+, pedal 2+. GI - soft abdomen with tenderness to palpation in the right upper quadrant . no hepatospleenomegaly. Bowel sounds normoactive Neurological - Bilateral upper extremity strength 5/5, bilateral lower extremity strength 5/5, no facial droop, normal speech, no tremor, no sensory deficiets. laboratory and microbiology Laboratory Tests 07/17/24 04:38 Test 07/17/24 04:38 Range/Units Serum Glucose 107 H 74-106 mg/dL Microbiology Date/Time Source Procedure Growth Status 07/16/24 06:56 Stool Stool Culture - Preliminary Resulted 07/16/24 06:56 Stool Shiga Toxin I & II - Final Resulted 07/16/24 06:56 Stool Clostridium difficile Toxin Assay - Final Resulted 07/14/24 17:22 Voided Urine Urine Culture - Final Complete 07/14/24 10:17 Blood Blood Culture - Preliminary NO GROWTH AFTER 72 HOURS OF INCUBATION. Resulted Problem List/Assessment/Plan Problem List/Assessment/Plan #Sepsis secondary to ?liver abscess #Liver mass #Possible Pyogenic liver abscesses #Melena #Anemia secondary to above #Transaminitis secondary to liver abscess versus alcoholic liver disease #CLINT, likely vasomotor mediated resolved #Hyponatremia #Chronic alcoholism #Cannabis dependence #Morbid obesity Regular diet IV fluid Meropenem IV CT scan showed Multiple ill-defined hypodense lesions of the liver. Patient refused MRI CT abdomen pelvis triple phase with IV contrast showed large multi-septated lesion in the right hepatic lobe measuring up to 13.7 cm, satellite lesions adjacent, additional multi septated lesion in the anterior right hepatic lobe measuring up to 4.8 cm Tumor markers negative Stool occult blood negative, few stool white cells Stool culture negative for Shiga toxin, C diff, Campylobacter GI on board Interventional Radiology consulted for drainage/IR guided liver biopsy Plan discussed with patient for more than 25 minutes, full code Case discussed with Time spent on care 23 min Plan discussed with: Patient My Orders My Orders Orders - KAVYA ANTHONY Procedure Category Date Status Time Acetaminophen Tablet PHA 07/17/24 In Process (Tylenol Tablet) 10:45 Ct Ab Pel With Iv Con CT 07/17/24 Resulted Only 10:54 Ketorolac Injection PHA 07/17/24 In Process (Toradol Injection) 11:30 Date of Service: Jul 17, 2024 Billing Provider: ELEAZAR DÍAZ MD Common Visit Codes: [id number] INP/OBS CARE(HIGH) KAVYA ANTHONY RESIDENT Jul 17, 2024 16:40 ELEAZAR DÍAZ MD Jul 17, 2024 19:01
[2024-07-17 17:00] VITALS: BP 101/48; PULSE 83; RESP 20; TEMP 100.5; O2SAT 94
--- NOTE | 2024-07-17 20:44 | DVHPN2 ---
Progress Note - Dictate Date Seen: Jul 17, 2024 Has the PT tested + for MRSA If YES, has PT been informed?: No Medical Necessity Reason Pt with a Central, PICC or Fol: No Subjective A 38 y old with non PMHx, came to ED due to abdominal pain in the RUQ for a week, he stated fever, chills, anorexia and diarrhea Pt drinks alcohol everyday and uses CBD, used to smoke but quitted [address] scan was suggestive of liver masses Workup is also suspicious for possible differential diagnosis of pyogenic liver abscess Patient has been started on IV antibiotics Leukocytosis persists Tumor markers are negative Urine culture and stool studies were negative Patient reported pain in the right upper quadrant, moderate in intensity 5/10 Reports passing flatus and bowel movement, no melena or hematochezia Patient was noted to have fever 100 F following which acetaminophen 650 mg was given, cooling measures Patient was advised to get a MRI abdomen done for better imaging of the liver abscess but he denied as he can not tolerate being in the MRI machine for long. CT abdomen pelvis with triple phase contrast was done vital signs Vital Sign Date Time Temp Pulse Resp B/P (MAP) Pulse Ox O2 Delivery O2 Flow Rate FiO2 07/17/24 18:09 98.9 07/17/24 17:00 83 20 101/48 (65) 94 07/17/24 07:30 Room Air* 0 21 Total Intake and Output 07/16/24 07/16/24 07/17/24 15:00 23:00 07:00 Intake Total 550 ml 980 ml 50 ml Balance 550 ml 980 ml 50 ml medications Current Medications Medications Dose Ordered Sig/Herlinda Route Start Time Stop Time Status Last Admin Dose Admin Pantoprazole Sodium 40 mg DAILY IV 07/15/24 10:00 07/17/24 10:33 40 MG Meropenem 50 ml @ 17 mls/hr Q8HR IV 07/15/24 14:00 07/17/24 13:57 17 MLS/HR Sodium Chloride 1,000 ml @ 150 mls/hr Q6H40M IV 07/15/24 15:45 07/17/24 20:07 150 MLS/HR Acetaminophen 1,000 mg TID PO 07/16/24 22:00 UNV Acetaminophen 650 mg Q8HR PO 07/17/24 14:00 UNV Acetaminophen 650 mg Q6HP PRN PO 07/17/24 10:45 07/17/24 17:09 650 MG Ketorolac Tromethamine 15 mg Q6HPRN PRN IV 07/17/24 11:30 07/22/24 11:29 07/17/24 20:07 15 MG objective Morbidly obese male patient lying in bed, in no acute distress General: Obese, afebrile, palor, mucosae are moist Cardiovascular: Regular S1 and S2. No murmurs, gallops or rubs. No JVD elevation. No pedal edema Respiratory: Normal B/L air entry on room air. Clear lung sounds on auscultation Abdomen: Soft, nontender, nondistended, normoactive bowel sounds, no rebound tenderness, no organomegaly, no masses Genitourinary: Deferred MSK/skin: Mobilizes 4 limbs. Skin is dry and warm Neurological: No motor, no sensitive deficits, normal speech. Pupils are isocoric and reactive. Psych/Mental Status: A/Ox3 laboratory and microbiology Laboratory Tests 07/17/24 04:38 Test 07/17/24 04:38 Range/Units Serum Glucose 107 H 74-106 mg/dL ABD PELVIC CT TRIPLE PHASE IMPRESSION: 1. Large multi-septate lesion in the right hepatic lobe measuring up to 13.7 cm. Small satellite lesions directly adjacent to this, as well as an additional multiseptate lesion in the anterior right hepatic lobe measuring up to 4.8 cm. Findings are favored to represent hepatic abscesses; however, a cystic neoplasm can not be entirely excluded by imaging. 2. Mild nonspecific stranding in the right hepatorenal recess. Problems(with codes): (1) Liver masses (2) Abnormal finding on GI tract imaging (3) Sepsis, unspecified organism (4) Nonspecific colitis (5) Liver abscess Prognosis Assessment plan Continue IV fluid hydration Broad-spectrum antibiotics Pain control Monitor labs IR consult for possible drainage of liver abscess versus biopsy Plan discussed with: Patient SILVIO RODRIGUEZ MD Jul 17, 2024 20:44
[2024-07-17 21:00] VITALS: BP 112/71; PULSE 107; RESP 18; TEMP 99; O2SAT 95
[2024-07-18] VITALS (7 sets, daily range): BP systolic 99–141; BP diastolic 57–76; PULSE 84–107; RESP 16–20; TEMP 98.6–101.4; O2SAT 91–97
[2024-07-18 06:53] LABS: Basophils # (auto) 0.1 10 ^3/uL (0-0.2); Basophils % (auto) 0.4 % (0.0-2.0); Eosinophils # (auto) 0 10 ^3/uL (0-0.8); Eosinophils % (auto) 0.2 % (0.0-7.0); Hematocrit 29.6 % (41.0-53.0); Lymphocytes # (auto) 2.2 10 ^3/uL (0.4-5.4); Lymphocytes % (auto) 14.7 % (10.0-50.0); Mean Corpuscular Hemoglobin 30.6 pg (28.0-32.0); Mean Corpuscular Hgb Conc. 33.6 g/dL (32.0-36.0); Monocytes # (auto) 1.4 10 ^3/uL (0-1.3); Neutrophils # (auto) 11.5 10 ^3/uL (1.6-8.6); Neutrophils % (auto) 75.7 % (37.0-80.0); Platelet Count (auto) 394 10^3/uL (140-450); Red Blood Cells 3.26 10^6/uL (4.5-5.90); Red Cell Distribution Width 14.9 % (11.8-14.3); White Blood Cell 15.2 10^3/uL (4.4-10.8)
[2024-07-18 07:11] LABS: Alanine Aminotransferase 174 U/L (7-40); Albumin 3.5 g/dL (3.2-4.8); Alkaline Phosphatase 195 U/L (46-116); Anion Gap 8 (5-15); Aspartate Aminotransferase 151 U/L (13-40); BUN/Creatinine Ratio 13.4 (10.0-20.0); Bilirubin, Total 1.2 mg/dL (0.2-1.0); Blood Urea Nitrogen 11 mg/dL (9-23); Calcium 8.6 mg/dL (8.7-10.4); Carbon Dioxide 24 mmol/L (20-31); Chloride 103 mmol/L (98-107); Glucose 90 mg/dL (74-106); Potassium 4.4 mmol/L (3.5-5.1); Sodium 135 mmol/L (136-145); Total Protein 7.1 g/dL (5.7-8.2)
[2024-07-18 09:02] LABS: Hepatitis B Surface Antigen Negative (Negative)
[2024-07-18 09:10] LABS: Hepatitis B Surface Antigen Negative (Negative)
[2024-07-18 09:22] LABS: Hepatitis A Ab IgM Negative; Hepatitis B Core IgM Negative (Negative); Hepatitis C Antibody Negative (Negative)
[2024-07-18 09:33] LABS: Hepatitis C Antibody Negative (Negative)
--- NOTE | 2024-07-18 11:52 | DVH ---
PROCEDURE: CT GUIDED DRAIN PLACEMENT HISTORY: LIVER DRAINAGE EBL: 5 mL COMPLICATIONS: none immediate Radiation dose information: CTDI vol 185.4 mGy; DLP mGycm [address] dose [address] for CT are the volume Computed Tomography (CT) Dose Index (CTDIvol) and the Dose Length Product (DLP), and are measured in units of mGy and mGy-cm, respectively. These indicators are not patient dose, but values generated from the CT scanner acquisition factors. The report includes radiation exposure data for exposures received during this examination. If multiple reports are prod uced from this examination, the exposure data is duplicated in each report. The exposure data report ed is indicative, but not determinative, of the radiation dose received by this patient. DOCUMENTATION: Informed consent was obtained and a procedural time out was performed. SEDATION: Moderate sedation was utilized during the procedure. The patient received benzodiazepines a nd opioids, the dosing of which was documented in the patient s permanent medical record. Pre-sedatio n history and evaluation revealed no contraindications to sedation. The patient s level of consciousn ess and physiologic status was monitored continuously by the physician and nursing staff throughout t he procedure. Total intra-service moderate sedation time was 30 minutes. TECHNIQUE: The skin over the right lateral abdominal wall was sterilely prepped, draped, and infiltr ated with 1% lidocaine. Computed tomography was used to locate the fluid collection. The collection w as accessed with a 19-gauge Yueh needle and a wire coiled in the collection. A 10 [place] APD was then placed and the coil formed. Tube placement was confirmed with follow up CT imaging. The catheter was secured and connected to bulb suction. Sterile dressings were applied. FINDINGS: CT demonstrates a hepatic fluid collection. The final images show the tube in the collecti on. PUS material was aspirated with a sample sent for laboratory evaluation. No complications were e ncountered. IMPRESSION: CT GUIDED PLACEMENT OF AN 8.5 FR DRAINAGE CATHETER WITHIN THE hepatic COLLECTION. RECOMMENDATION/PLAN: Maintain drainage tube to bulb suction drainage.
--- NOTE | 2024-07-18 11:57 | DVHPNRES ---
Progress Note Date Seen: Jul 18, 2024 Resident Creating Document: ANGUS GILLESPIE RESIDENT Has the PT tested + for MRSA If YES, has PT been informed?: No Medical Necessity Reason Pt with a Central, PICC or Fol: No Subjective Review of Systems Patient reported pain in the right upper quadrant, moderate in intensity 5/10 Reports passing flatus and bowel movement, no melena or hematochezia Patient was noted to have fever 100 F following which acetaminophen 650 mg was given, cooling measures Patient was advised to get a MRI abdomen done for better imaging of the liver abscess but he denied as he can not tolerate being in the MRI machine for long. CT abdomen pelvis with triple phase contrast was done which showed large multi- septated lesion in the right hepatic lobe measuring up to 13.7 cm. Small satellite lesions directly adjacent to this, as well as an additional mellitus update lesion in the anterior right hepatic lobe measuring up to 4.8 cm. Findings are favored to represent hepatic abscesses: However, a cystic neoplasm can not be entirely excluded by imaging. Objective vital signs Vital Sign Date Time Temp Pulse Resp B/P (MAP) Pulse Ox O2 Delivery O2 Flow Rate FiO2 07/18/24 09:00 100.0 104 16 141/70 (93) 91 100.0 07/18/24 08:00 Room Air* 0 21 Total Intake and Output 07/17/24 07/17/24 07/18/24 15:00 23:00 07:00 Intake Total 290 ml 2270 ml 1050 ml Balance 290 ml 2270 ml 1050 ml medications Current Medications Medications Dose Ordered Sig/Herlinda Route Start Time Stop Time Status Last Admin Dose Admin Pantoprazole Sodium 40 mg DAILY IV 07/15/24 10:00 07/18/24 11:49 40 MG Meropenem 50 ml @ 17 mls/hr Q8HR IV 07/15/24 14:00 07/18/24 05:19 17 MLS/HR Sodium Chloride 1,000 ml @ 150 mls/hr Q6H40M IV 07/15/24 15:45 07/17/24 20:07 150 MLS/HR Acetaminophen 1,000 mg TID PO 07/16/24 22:00 UNV Acetaminophen 650 mg Q8HR PO 07/17/24 14:00 UNV Acetaminophen 650 mg Q6HP PRN PO 07/17/24 10:45 07/18/24 01:45 650 MG Ketorolac Tromethamine 15 mg Q6HPRN PRN IV 07/17/24 11:30 07/22/24 11:29 07/18/24 11:49 15 MG Examination Constitutional: Patient was alert and oriented to time, place and person and appears to be in mild abdominal discomfort, no respiratory distress noted. Pt had CT-guided percutaneous drainage of liver abscess today on 07/18/24, along with insertion of catheter with drainage of 400 mL purulent liquid in bag Gen - no pallor, mild scleral icterus, no cyanosis, no clubbing, no LAD, no edema . Skin - Patients skin is warm and dry. HEENT - normocephalic, atraumatic, dry mucous membranes. Neck - full ROM, no LAD, no JVD Pulmonary - B/L vesicular breath sounds. no crackles , no wheezing cardiovascular - normal S1,S2 heard. no murmurs heard. peripheral pulses normal radial 2+, pedal 2+. GI - soft abdomen with tenderness to palpation in the right upper quadrant . no hepatospleenomegaly. Bowel sounds normoactive Neurological - Bilateral upper extremity strength 5/5, bilateral lower extremity strength 5/5, no facial droop, normal speech, no tremor, no sensory deficit laboratory and microbiology Laboratory Tests 07/18/24 05:49 Test 07/18/24 05:49 Range/Units Serum Glucose 90 74-106 mg/dL Microbiology Date/Time Source Procedure Growth Status 07/16/24 06:56 Stool Stool Culture - Final Complete 07/16/24 06:56 Stool Shiga Toxin I & II - Final Complete 07/16/24 06:56 Stool Clostridium difficile Toxin Assay - Final Complete 07/14/24 17:22 Voided Urine Urine Culture - Final Complete 07/14/24 10:17 Blood Blood Culture - Preliminary NO GROWTH AFTER 72 HOURS OF INCUBATION. Resulted Labs and/or images reviewed: Labs reviewed by me, Image(s) reviewed by me Problem List/Assessment/Plan Problem List/Assessment/Plan #Sepsis secondary to ?liver abscess #Liver mass #Possible Pyogenic liver abscesses #Melena #Anemia secondary to above #Transaminitis secondary to liver abscess versus alcoholic liver disease #CLINT, likely vasomotor mediated resolved #Hyponatremia #Chronic alcoholism #Cannabis dependence #Morbid obesity Regular diet IV fluid Meropenem IV CT scan showed Multiple ill-defined hypodense lesions of the liver. Patient refused MRI CT abdomen pelvis triple phase with IV contrast showed large multi-septated lesion in the right hepatic lobe measuring up to 13.7 cm, satellite lesions adjacent, additional multi septated lesion in the anterior right hepatic lobe measuring up to 4.8 cm Tumor markers negative Stool occult blood negative, few stool white cells Stool culture negative for Shiga toxin, C diff, Campylobacter GI on board Interventional Radiology consulted for drainage/IR guided liver biopsy: Patient underwent liver abscess drainage today on 07/18/2024 Plan discussed with patient for more than 25 minutes, full code Plan discussed with Dr. Díaz Plan discussed with: Patient, Other (RN) My Orders My Orders Orders - ANGUS GILLESPIE Procedure Category Date Status Time Incentive Spirometry ORDERS 07/18/24 Transmitted 11:10 Date of Service: Jul 18, 2024 Billing Provider: ELEAZAR DÍAZ MD Common Visit Codes: [id number] INP/OBS CARE(HIGH) ANGUS GILLESPIE Jul 18, 2024 11:57 ELEAZAR DÍAZ MD Jul 20, 2024 15:32
--- NOTE | 2024-07-18 17:36 | DVHPNRES ---
Progress Note Date Seen: Jul 18, 2024 Resident Creating Document: JOON MOLINA RESIDENT Has the PT tested + for MRSA If YES, has PT been informed?: No Medical Necessity Reason Pt with a Central, PICC or Fol: No Subjective Review of Systems Patient seen and examined at bedside. Patient underwent CT-guided percutaneous drainage of liver abscess with insertion of catheter. Drain at least 400 mL purulent liquid in bag. Patient is feeling much better compared to when he came to the hospital. No other new complaints. Objective vital signs Vital Sign Date Time Temp Pulse Resp B/P (MAP) Pulse Ox O2 Delivery O2 Flow Rate FiO2 07/18/24 13:00 100.6 107 20 122/71 (88) 94 100.6 07/18/24 08:00 Room Air* 0 21 Total Intake and Output 07/17/24 07/17/24 07/18/24 15:00 23:00 07:00 Intake Total 290 ml 2270 ml 1050 ml Balance 290 ml 2270 ml 1050 ml medications Current Medications Medications Dose Ordered Sig/Herlinda Route Start Time Stop Time Status Last Admin Dose Admin Pantoprazole Sodium 40 mg DAILY IV 07/15/24 10:00 07/18/24 11:49 40 MG Meropenem 50 ml @ 17 mls/hr Q8HR IV 07/15/24 14:00 07/18/24 14:29 17 MLS/HR Sodium Chloride 1,000 ml @ 150 mls/hr Q6H40M IV 07/15/24 15:45 07/17/24 20:07 150 MLS/HR Acetaminophen 1,000 mg TID PO 07/16/24 22:00 UNV Acetaminophen 650 mg Q8HR PO 07/17/24 14:00 UNV Acetaminophen 650 mg Q6HP PRN PO 07/17/24 10:45 07/18/24 01:45 650 MG Ketorolac Tromethamine 15 mg Q6HPRN PRN IV 07/17/24 11:30 07/22/24 11:29 07/18/24 11:49 15 MG Examination General Appearance: Cooperative. Well developed. Well nourished. NAD Head Exam: Normal inspection Neck Exam: Normal inspection. Non-tender. Normal alignment Pulmonary/Respiratory: Chest non-tender. Clear bilateral breath sounds Cardiovascular/Chest: Regular rate and rhythm. No murmurs. No JVD. Peripheral Pulses: 2+ Radial (R). 2+ Radial (L). 2+ Pedal (R). 2+ Pedal (L) Abdominal Exam: Normal bowel sounds. Soft. Nontender. No hepatospenomegaly. No masses, presence of percutaneous drainage over right upper quadrant abdominal region. Ankle Exam: Negative ankle edema Lower extremities: Negative lower extremity edema Neuro/Mental Status: A&O x4. Coherent Thoughts/Psych: Normal thought pattern. Appropriate mood and affect. Good judgement and insight Appearance: In no acute distress Skin Exam: Normal inspection. Normal color. Warm. Dry laboratory and microbiology Laboratory Tests 07/18/24 05:49 Test 07/18/24 05:49 Range/Units Serum Glucose 90 74-106 mg/dL Microbiology Date/Time Source Procedure Growth Status 07/16/24 06:56 Stool Stool Culture - Final Complete 07/16/24 06:56 Stool Shiga Toxin I & II - Final Complete 07/16/24 06:56 Stool Clostridium difficile Toxin Assay - Final Complete 07/14/24 17:22 Voided Urine Urine Culture - Final Complete 07/14/24 10:17 Blood Blood Culture - Preliminary NO GROWTH AFTER 72 HOURS OF INCUBATION. Resulted Problem List/Assessment/Plan Problem List/Assessment/Plan Multiloculated liver abscess Sepsis due to above Liver mass can not be ruled out pending biopsy results Transaminitis likely due to liver abscess CLINT likely hemodynamically mediated Chronic alcoholism Morbid obesity Stool occult negative, no melena. Plan/recommendation Dr Sal -underwent CT-guided percutaneous drainage of liver abscess, draining at least 400 mL of purulent discharge, continue with IV antibiotic as per hospitalist. -continue Protonix 40 mg, can transition to oral. -pending biopsy results and pending cytology , culture, Gram stain of purulent drainage. -stool study negative for occult, she can toxin, C diff. hepatitis panel negative. -continue IV fluid hydration -continue to monitor liver function tests -advanced diet as per toleration -we will continue to monitor this patient. Plan discussed with: Patient, Other (RN) Dietary Evaluation Review Comments: Maintain adequate oral intakes >75% of meals Expected Outcomes/Goals: Improved nutrition related-lab values, avoidance of alcohol Protein Calorie Malnutrition: N/A JOON MOLINA RESIDENT Jul 18, 2024 17:36
[2024-07-18] MEDS: ACETAMINOPHEN 500 MG TAB or CAP PO ONE (18:08)
[2024-07-18] MEDS: MIDAZOLAM HCL 2MG/2ML 2ml VIAL (1mg/ml) IV ONE (21:30)
[2024-07-18] MEDS: fentaNYL CITRATE 100 MCG/2 ML VL IV ONE (21:30)
[2024-07-19 01:00] VITALS: BP_SYST 110; BP_SYST 124; BP_DIAS 74; BP_DIAS 92; PULSE 90; PULSE 94; RESP 18; TEMP 99.2; O2SAT 95; O2SAT 99
[2024-07-19 05:00] VITALS: BP 122/65; PULSE 92; RESP 17; TEMP 99.1; O2SAT 95
[2024-07-19 08:04] LABS: Basophils # (auto) 0 10 ^3/uL (0-0.2); Basophils % (auto) 0.3 % (0.0-2.0); Eosinophils # (auto) 0 10 ^3/uL (0-0.8); Eosinophils % (auto) 0.3 % (0.0-7.0); Hematocrit 28.5 % (41.0-53.0); Hemoglobin 9.7 g/dL (13.5-17.5); Lymphocytes # (auto) 1.7 10 ^3/uL (0.4-5.4); Mean Corpuscular Hemoglobin 31.2 pg (28.0-32.0); Mean Corpuscular Hgb Conc. 34.1 g/dL (32.0-36.0); Mean Corpuscular Volume 91.5 fL (80.0-100.0); Monocytes % (auto) 8.4 % (0.0-12.0); Neutrophils # (auto) 9.5 10 ^3/uL (1.6-8.6); Nucleated Red Blood Cells % 0.1 %; Platelet Count (auto) 393 10^3/uL (140-450); Red Blood Cells 3.12 10^6/uL (4.5-5.90); Red Cell Distribution Width 14.3 % (11.8-14.3); White Blood Cell 12.3 10^3/uL (4.4-10.8)
[2024-07-19 08:34] VITALS: BP 117/75; PULSE 87; RESP 17; TEMP 100.2; O2SAT 97
[2024-07-19 08:38] LABS: Anion Gap 9 (5-15); BUN/Creatinine Ratio 16.7 (10.0-20.0); Blood Urea Nitrogen 13 mg/dL (9-23); Calcium 8.8 mg/dL (8.7-10.4); Carbon Dioxide 24 mmol/L (20-31); Chloride 100 mmol/L (98-107); Glucose 104 mg/dL (74-106); Potassium 4.3 mmol/L (3.5-5.1)
[2024-07-19 08:39] LABS: Albumin 3.4 g/dL (3.2-4.8); Bilirubin, Total 1.1 mg/dL (0.2-1.0)
[2024-07-19 08:56] LABS: Alanine Aminotransferase 171 U/L (7-40); Alkaline Phosphatase 188 U/L (46-116); Aspartate Aminotransferase 129 U/L (13-40); Sodium 133 mmol/L (136-145)
[2024-07-19 12:46] VITALS: BP 121/70; PULSE 95; RESP 16; TEMP 98.7; O2SAT 97
--- NOTE | 2024-07-19 16:03 | DVHPNRES ---
Progress Note Date Seen: Jul 19, 2024 Resident Creating Document: ANGUS GILLESPIE RESIDENT Has the PT tested + for MRSA If YES, has PT been informed?: No Medical Necessity Reason Pt with a Central, PICC or Fol: No Subjective Review of Systems Patient reported pain in the right upper quadrant, moderate in intensity 5/10 Reports passing flatus and bowel movement, no melena or hematochezia Patient was noted to have fever 100 F following which acetaminophen 650 mg was given, cooling measures Patient was advised to get a MRI abdomen done for better imaging of the liver abscess but he denied as he can not tolerate being in the MRI machine for long. CT abdomen pelvis with triple phase contrast was done which showed large multi- septated lesion in the right hepatic lobe measuring up to 13.7 cm. Small satellite lesions directly adjacent to this, as well as an additional mellitus update lesion in the anterior right hepatic lobe measuring up to 4.8 cm. Findings are favored to represent hepatic abscesses: However, a cystic neoplasm can not be entirely excluded by imaging. 07/18/2024: Patient underwent CT-guided percutaneous drainage of liver abscess along with insertion of catheter with drainage of 400 mL serosanguineous fluid 07/19/2024: Bag replaced, patient had a further drainage of 100 mL serosanguineous fluid Objective vital signs Vital Sign Date Time Temp Pulse Resp B/P (MAP) Pulse Ox O2 Delivery O2 Flow Rate FiO2 07/19/24 12:46 98.7 95 16 121/70 (87) 97 98.7 07/19/24 08:00 Room Air* 0 21 Total Intake and Output 07/18/24 07/18/24 07/19/24 15:00 23:00 07:00 Intake Total 50 ml 510 ml 1650 ml Balance 50 ml 510 ml 1650 ml medications Current Medications Medications Dose Ordered Sig/Herlinda Route Start Time Stop Time Status Last Admin Dose Admin Pantoprazole Sodium 40 mg DAILY IV 07/15/24 10:00 07/19/24 09:13 40 MG Meropenem 50 ml @ 17 mls/hr Q8HR IV 07/15/24 14:00 07/19/24 14:23 17 MLS/HR Sodium Chloride 1,000 ml @ 150 mls/hr Q6H40M IV 07/15/24 15:45 07/19/24 14:24 150 MLS/HR Acetaminophen 1,000 mg TID PO 07/16/24 22:00 UNV Acetaminophen 650 mg Q8HR PO 07/17/24 14:00 UNV Acetaminophen 650 mg Q6HP PRN PO 07/17/24 10:45 07/18/24 01:45 650 MG Ketorolac Tromethamine 15 mg Q6HPRN PRN IV 07/17/24 11:30 07/22/24 11:29 07/18/24 18:07 15 MG Examination Constitutional: Patient was alert and oriented to time, place and person. Patient reports improvement in right upper quadrant pain and fever since undergoing drainage of liver abscess. Gen - no pallor, mild scleral icterus, no cyanosis, no clubbing, no LAD, no edema . Skin - Patients skin is warm and dry. HEENT - normocephalic, atraumatic, dry mucous membranes. Neck - full ROM, no LAD, no JVD Pulmonary - B/L vesicular breath sounds. no crackles , no wheezing cardiovascular - normal S1,S2 heard. no murmurs heard. peripheral pulses normal radial 2+, pedal 2+. GI - soft abdomen with tenderness to palpation in the right upper quadrant . no hepatospleenomegaly. Bowel sounds normoactive Neurological - Bilateral upper extremity strength 5/5, bilateral lower extremity strength 5/5, no facial droop, normal speech, no tremor, no sensory deficit laboratory and microbiology Laboratory Tests 07/19/24 07:15 Test 07/19/24 07:15 Range/Units Serum Glucose 104 74-106 mg/dL Microbiology Date/Time Source Procedure Growth Status 07/18/24 11:20 Aspirate Gram Stain - Final Resulted 07/18/24 11:20 Aspirate Body Fluid Culture - Preliminary Resulted 07/16/24 06:56 Stool Stool Culture - Final Complete 07/16/24 06:56 Stool Shiga Toxin I & II - Final Complete 07/16/24 06:56 Stool Clostridium difficile Toxin Assay - Final Complete 07/14/24 17:22 Voided Urine Urine Culture - Final Complete 07/14/24 10:17 Blood Blood Culture - Final NO GROWTH AFTER 5 DAYS OF INCUBATION. Complete Labs and/or images reviewed: Labs reviewed by me, Image(s) reviewed by me Problem List/Assessment/Plan Problem List/Assessment/Plan #Sepsis secondary to ?liver abscess #Liver mass #Possible Pyogenic liver abscesses #Melena #Anemia secondary to above #Transaminitis secondary to liver abscess versus alcoholic liver disease #CLINT, likely vasomotor mediated resolved #Hyponatremia #Chronic alcoholism #Cannabis dependence #Morbid obesity Regular diet IV fluid Meropenem IV CT scan showed Multiple ill-defined hypodense lesions of the liver. Patient refused MRI CT abdomen pelvis triple phase with IV contrast showed large multi-septated lesion in the right hepatic lobe measuring up to 13.7 cm, satellite lesions adjacent, additional multi septated lesion in the anterior right hepatic lobe measuring up to 4.8 cm Tumor markers negative Stool occult blood negative, few stool white cells Stool culture negative for Shiga toxin, C diff, Campylobacter GI on board Interventional Radiology consulted for drainage/IR guided liver biopsy: Patient underwent liver abscess drainage today on 07/18/2024 Awaiting fluid analysis results Plan discussed with patient for more than 25 minutes, full code Plan discussed with Dr. Díaz Plan discussed with: Patient, Spouse, Other (RN) Dietary Evaluation Review Comments: Maintain adequate oral intakes >75% of meals Expected Outcomes/Goals: Improved nutrition related-lab values, avoidance of alcohol Protein Calorie Malnutrition: N/A Date of Service: Jul 19, 2024 Billing Provider: ELEAZAR DÍAZ MD Common Visit Codes: [id number] INP/OBS CARE(HIGH) ANGUS GILLESPIE Jul 19, 2024 16:03 ELEAZAR DÍAZ MD Jul 20, 2024 15:40
[2024-07-19 16:17] VITALS: BP 127/80; PULSE 98; RESP 17; TEMP 99.8; O2SAT 97
--- NOTE | 2024-07-19 16:19 | DVHPNRES ---
Progress Note Date Seen: Jul 19, 2024 Resident Creating Document: JOON MOLINA RESIDENT Has the PT tested + for MRSA If YES, has PT been informed?: No Medical Necessity Reason Pt with a Central, PICC or Fol: No Subjective Review of Systems Patient seen and examined at bedside. No new complaints. Patient denied fever, chills, abdominal pain,. Catheter continued drain from liver abscess. Patient is feeling better. Objective vital signs Vital Sign Date Time Temp Pulse Resp B/P (MAP) Pulse Ox O2 Delivery O2 Flow Rate FiO2 07/19/24 12:46 98.7 95 16 121/70 (87) 97 98.7 07/19/24 08:00 Room Air* 0 21 Total Intake and Output 07/18/24 07/18/24 07/19/24 14:59 22:59 06:59 Intake Total 50 ml 510 ml 1650 ml Balance 50 ml 510 ml 1650 ml medications Current Medications Medications Dose Ordered Sig/Herlinda Route Start Time Stop Time Status Last Admin Dose Admin Pantoprazole Sodium 40 mg DAILY IV 07/15/24 10:00 07/19/24 09:13 40 MG Meropenem 50 ml @ 17 mls/hr Q8HR IV 07/15/24 14:00 07/19/24 14:23 17 MLS/HR Sodium Chloride 1,000 ml @ 150 mls/hr Q6H40M IV 07/15/24 15:45 07/19/24 14:24 150 MLS/HR Acetaminophen 1,000 mg TID PO 07/16/24 22:00 UNV Acetaminophen 650 mg Q8HR PO 07/17/24 14:00 UNV Acetaminophen 650 mg Q6HP PRN PO 07/17/24 10:45 07/18/24 01:45 650 MG Ketorolac Tromethamine 15 mg Q6HPRN PRN IV 07/17/24 11:30 07/22/24 11:29 07/18/24 18:07 15 MG Examination General Appearance: Cooperative. Well developed. Well nourished. NAD Head Exam: Normal inspection Neck Exam: Normal inspection. Non-tender. Normal alignment Pulmonary/Respiratory: Chest non-tender. Clear bilateral breath sounds Cardiovascular/Chest: Regular rate and rhythm. No murmurs. No JVD. Peripheral Pulses: 2+ Radial (R). 2+ Radial (L). 2+ Pedal (R). 2+ Pedal (L) Abdominal Exam: Normal bowel sounds. Soft. Nontender. No hepatospenomegaly. No masses, presence of percutaneous drainage over right upper quadrant abdominal region. Ankle Exam: Negative ankle edema Lower extremities: Negative lower extremity edema Neuro/Mental Status: A&O x4. Coherent Thoughts/Psych: Normal thought pattern. Appropriate mood and affect. Good judgement and insight Appearance: In no acute distress Skin Exam: Normal inspection. Normal color. Warm. Dry laboratory and microbiology Laboratory Tests 07/19/24 07:15 Test 07/19/24 07:15 Range/Units Serum Glucose 104 74-106 mg/dL Microbiology Date/Time Source Procedure Growth Status 07/18/24 11:20 Aspirate Gram Stain - Final Resulted 07/18/24 11:20 Aspirate Body Fluid Culture - Preliminary Resulted 07/16/24 06:56 Stool Stool Culture - Final Complete 07/16/24 06:56 Stool Shiga Toxin I & II - Final Complete 07/16/24 06:56 Stool Clostridium difficile Toxin Assay - Final Complete 07/14/24 17:22 Voided Urine Urine Culture - Final Complete 07/14/24 10:17 Blood Blood Culture - Final NO GROWTH AFTER 5 DAYS OF INCUBATION. Complete Problem List/Assessment/Plan Problem List/Assessment/Plan Multiloculated liver abscess Sepsis due to above Liver mass can not be ruled out pending biopsy results Transaminitis likely due to liver abscess CLINT likely hemodynamically mediated Chronic alcoholism Morbid obesity Stool occult negative, no melena. Plan/recommendation Dr Sal -patient will need GI clinic follow-up for management of percutaneous drainage. Recommend ID consultation for antibiotics and follow up in outpatient setting for continuous imaging monitoring of liver abscess. Patient will need at least 4-6 weeks of antibiotic. -underwent CT-guided percutaneous drainage of liver abscess, draining at least 300 mL of purulent discharge today. -continue Protonix 40 mg, can transition to oral. -pending biopsy results and pending cytology , culture, Gram stain of purulent drainage. -stool study negative for occult, she can toxin, C diff. hepatitis panel negative. -continue IV fluid hydration -continue to monitor liver function tests -advanced diet as per toleration -we will continue to monitor this patient. Plan discussed with: Patient (RN), Other Dietary Evaluation Review Comments: Maintain adequate oral intakes >75% of meals Expected Outcomes/Goals: Improved nutrition related-lab values, avoidance of alcohol Protein Calorie Malnutrition: N/A JOON MOLINA RESIDENT Jul 19, 2024 16:19
[2024-07-19 21:00] VITALS: BP 114/67; PULSE 74; RESP 18; TEMP 100.3; O2SAT 92
[2024-07-20] VITALS (7 sets, daily range): BP systolic 118–138; BP diastolic 68–87; PULSE 80–94; RESP 17–18; TEMP 97.6–99.1; O2SAT 91–96
[2024-07-20 07:36] LABS: Basophils # (auto) 0.1 10 ^3/uL (0-0.2); Basophils % (auto) 0.6 % (0.0-2.0); Eosinophils # (auto) 0.1 10 ^3/uL (0-0.8); Eosinophils % (auto) 0.7 % (0.0-7.0); Hematocrit 30.7 % (41.0-53.0); Hemoglobin 10.2 g/dL (13.5-17.5); Lymphocytes # (auto) 1.7 10 ^3/uL (0.4-5.4); Mean Corpuscular Hemoglobin 30.2 pg (28.0-32.0); Mean Corpuscular Hgb Conc. 33.2 g/dL (32.0-36.0); Mean Corpuscular Volume 90.9 fL (80.0-100.0); Monocytes % (auto) 8.3 % (0.0-12.0); Neutrophils # (auto) 9.5 10 ^3/uL (1.6-8.6); Neutrophils % (auto) 76.4 % (37.0-80.0); Nucleated Red Blood Cells % 0.1 %; Platelet Count (auto) 430 10^3/uL (140-450); Red Blood Cells 3.38 10^6/uL (4.5-5.90); Red Cell Distribution Width 14.4 % (11.8-14.3); White Blood Cell 12.4 10^3/uL (4.4-10.8)
[2024-07-20 07:42] LABS: Albumin 3.5 g/dL (3.2-4.8); Anion Gap 8 (5-15); BUN/Creatinine Ratio 13.5 (10.0-20.0); Blood Urea Nitrogen 10 mg/dL (9-23); Carbon Dioxide 24 mmol/L (20-31); Chloride 103 mmol/L (98-107); Glucose 91 mg/dL (74-106); Potassium 4.6 mmol/L (3.5-5.1)
[2024-07-20 07:43] LABS: Total Protein 7.3 g/dL (5.7-8.2)
[2024-07-20 07:54] LABS: Alanine Aminotransferase 196 U/L (7-40); Alkaline Phosphatase 183 U/L (46-116); Aspartate Aminotransferase 138 U/L (13-40); Calcium 8.7 mg/dL (8.7-10.4); Sodium 135 mmol/L (136-145)
--- NOTE | 2024-07-20 10:59 | DVHPNRES ---
Progress Note Date Seen: Jul 20, 2024 Resident Creating Document: JOON MOLINA RESIDENT Has the PT tested + for MRSA If YES, has PT been informed?: No Medical Necessity Reason Pt with a Central, PICC or Fol: No Subjective Review of Systems Patient seen and examined at bedside. No new complaints. No nausea, no fever, no abdominal pain, no diarrhea. Minimal drainage via catheter. Patient is feeling better. Objective vital signs Vital Sign Date Time Temp Pulse Resp B/P (MAP) Pulse Ox O2 Delivery O2 Flow Rate FiO2 07/20/24 08:40 97.6 80 18 121/87 (98) 91 97.6 07/20/24 08:00 Room Air* 0 21 Total Intake and Output 07/19/24 07/19/24 07/20/24 15:00 23:00 07:00 Intake Total 50 ml 2700 ml 1150 ml Output Total 650 ml Balance 50 ml 2700 ml 500 ml medications Current Medications Medications Dose Ordered Sig/Herlinda Route Start Time Stop Time Status Last Admin Dose Admin Pantoprazole Sodium 40 mg DAILY IV 07/15/24 10:00 07/20/24 08:55 40 MG Meropenem 50 ml @ 17 mls/hr Q8HR IV 07/15/24 14:00 07/20/24 05:19 17 MLS/HR Sodium Chloride 1,000 ml @ 150 mls/hr Q6H40M IV 07/15/24 15:45 07/19/24 22:09 150 MLS/HR Acetaminophen 1,000 mg TID PO 07/16/24 22:00 UNV Acetaminophen 650 mg Q8HR PO 07/17/24 14:00 UNV Acetaminophen 650 mg Q6HP PRN PO 07/17/24 10:45 07/18/24 01:45 650 MG Ketorolac Tromethamine 15 mg Q6HPRN PRN IV 07/17/24 11:30 07/22/24 11:29 07/19/24 22:10 15 MG Examination General Appearance: Cooperative. Well developed. Well nourished. NAD Head Exam: Normal inspection Neck Exam: Normal inspection. Non-tender. Normal alignment Pulmonary/Respiratory: Chest non-tender. Clear bilateral breath sounds Cardiovascular/Chest: Regular rate and rhythm. No murmurs. No JVD. Peripheral Pulses: 2+ Radial (R). 2+ Radial (L). 2+ Pedal (R). 2+ Pedal (L) Abdominal Exam: Normal bowel sounds. Soft. Nontender. No hepatospenomegaly. No masses, presence of percutaneous drainage over right upper quadrant abdominal region. Ankle Exam: Negative ankle edema Lower extremities: Negative lower extremity edema Neuro/Mental Status: A&O x4. Coherent Thoughts/Psych: Normal thought pattern. Appropriate mood and affect. Good judgement and insight Appearance: In no acute distress Skin Exam: Normal inspection. Normal color. Warm. Dry laboratory and microbiology Laboratory Tests 07/20/24 07:05 Test 07/20/24 07:05 Range/Units Serum Glucose 91 74-106 mg/dL Microbiology Date/Time Source Procedure Growth Status 07/18/24 11:20 Aspirate Gram Stain - Final Resulted 07/18/24 11:20 Aspirate Body Fluid Culture - Preliminary Resulted 07/16/24 06:56 Stool Stool Culture - Final Complete 07/16/24 06:56 Stool Shiga Toxin I & II - Final Complete 07/16/24 06:56 Stool Clostridium difficile Toxin Assay - Final Complete 07/14/24 17:22 Voided Urine Urine Culture - Final Complete 07/14/24 10:17 Blood Blood Culture - Final NO GROWTH AFTER 5 DAYS OF INCUBATION. Complete Problem List/Assessment/Plan Problem List/Assessment/Plan Multiloculated liver abscess Sepsis due to above Liver mass can not be ruled out pending biopsy results Transaminitis likely due to liver abscess CLINT likely hemodynamically mediated Chronic alcoholism Morbid obesity Stool occult negative, no melena. Plan/recommendation Dr Sal -patient will need GI clinic follow-up for management of percutaneous drainage. Recommend ID consultation for antibiotics and follow up in outpatient setting for continuous imaging monitoring of liver abscess. Patient will need at least 4-6 weeks of antibiotic. -underwent CT-guided percutaneous drainage of liver abscess, draining at least 300 mL of purulent discharge today. -continue Protonix 40 mg, can transition to oral. -pending biopsy results and pending cytology , culture, Gram stain of purulent drainage. -stool study negative for occult, she can toxin, C diff. hepatitis panel negative. -continue IV fluid hydration -continue to monitor liver function tests -advanced diet as per toleration -we will continue to monitor this patient. Plan discussed with: Patient, Other Dietary Evaluation Review Comments: Maintain adequate oral intakes >75% of meals Expected Outcomes/Goals: Improved nutrition related-lab values, avoidance of alcohol Protein Calorie Malnutrition: N/A JOON MOLINA RESIDENT Jul 20, 2024 10:59
--- NOTE | 2024-07-20 14:18 | DVHPNRES ---
Progress Note Date Seen: Jul 20, 2024 Resident Creating Document: ANGUS GILLESPIE RESIDENT Has the PT tested + for MRSA If YES, has PT been informed?: No Medical Necessity Reason Pt with a Central, PICC or Fol: No Subjective Review of Systems Patient reported pain in the right upper quadrant, moderate in intensity 5/10 Reports passing flatus and bowel movement, no melena or hematochezia Patient was noted to have fever 100 F following which acetaminophen 650 mg was given, cooling measures Patient was advised to get a MRI abdomen done for better imaging of the liver abscess but he denied as he can not tolerate being in the MRI machine for long. CT abdomen pelvis with triple phase contrast was done which showed large multi- septated lesion in the right hepatic lobe measuring up to 13.7 cm. Small satellite lesions directly adjacent to this, as well as an additional mellitus update lesion in the anterior right hepatic lobe measuring up to 4.8 cm. Findings are favored to represent hepatic abscesses: However, a cystic neoplasm can not be entirely excluded by imaging. 07/18/2024: Patient underwent CT-guided percutaneous drainage of liver abscess along with insertion of catheter with drainage of 400 mL serosanguineous fluid 07/19/2024: Bag replaced, patient had a further drainage of 100 mL serosanguineous fluid 07/20/2024: Minimal serosanguineous reddish-brown drainage in the bag Objective vital signs Vital Sign Date Time Temp Pulse Resp B/P (MAP) Pulse Ox O2 Delivery O2 Flow Rate FiO2 07/20/24 12:50 98.1 90 18 138/75 (96) 95 98.1 07/20/24 08:00 Room Air* 0 21 Total Intake and Output 07/19/24 07/19/24 07/20/24 15:00 23:00 07:00 Intake Total 50 ml 2700 ml 1150 ml Output Total 650 ml Balance 50 ml 2700 ml 500 ml medications Current Medications Medications Dose Ordered Sig/Herlinda Route Start Time Stop Time Status Last Admin Dose Admin Pantoprazole Sodium 40 mg DAILY IV 07/15/24 10:00 07/20/24 08:55 40 MG Meropenem 50 ml @ 17 mls/hr Q8HR IV 07/15/24 14:00 07/20/24 13:21 17 MLS/HR Sodium Chloride 1,000 ml @ 150 mls/hr Q6H40M IV 07/15/24 15:45 07/19/24 22:09 150 MLS/HR Acetaminophen 1,000 mg TID PO 07/16/24 22:00 UNV Acetaminophen 650 mg Q8HR PO 07/17/24 14:00 UNV Acetaminophen 650 mg Q6HP PRN PO 07/17/24 10:45 07/18/24 01:45 650 MG Ketorolac Tromethamine 15 mg Q6HPRN PRN IV 07/17/24 11:30 07/22/24 11:29 07/20/24 13:21 15 MG Examination Constitutional: Patient was alert and oriented to time, place and person. Patient reports improvement in right upper quadrant pain and fever since undergoing drainage of liver abscess. Gen - no pallor, mild scleral icterus, no cyanosis, no clubbing, no LAD, no edema . Skin - Patients skin is warm and dry. HEENT - normocephalic, atraumatic, dry mucous membranes. Neck - full ROM, no LAD, no JVD Pulmonary - B/L vesicular breath sounds. no crackles , no wheezing cardiovascular - normal S1,S2 heard. no murmurs heard. peripheral pulses normal radial 2+, pedal 2+. GI - soft abdomen with tenderness to palpation in the right upper quadrant . no hepatospleenomegaly. Bowel sounds normoactive Neurological - Bilateral upper extremity strength 5/5, bilateral lower extremity strength 5/5, no facial droop, normal speech, no tremor, no sensory deficit laboratory and microbiology Laboratory Tests 07/20/24 07:05 Test 07/20/24 07:05 Range/Units Serum Glucose 91 74-106 mg/dL Microbiology Date/Time Source Procedure Growth Status 07/18/24 11:20 Aspirate Gram Stain - Final Resulted 07/18/24 11:20 Aspirate Body Fluid Culture - Preliminary Resulted 07/16/24 06:56 Stool Stool Culture - Final Complete 07/16/24 06:56 Stool Shiga Toxin I & II - Final Complete 07/16/24 06:56 Stool Clostridium difficile Toxin Assay - Final Complete 07/14/24 17:22 Voided Urine Urine Culture - Final Complete 07/14/24 10:17 Blood Blood Culture - Final NO GROWTH AFTER 5 DAYS OF INCUBATION. Complete Labs and/or images reviewed: Labs reviewed by me, Image(s) reviewed by me Problem List/Assessment/Plan Problem List/Assessment/Plan #Sepsis secondary to ?liver abscess #Liver mass #Possible Pyogenic liver abscesses #Melena #Anemia secondary to above #Transaminitis secondary to liver abscess versus alcoholic liver disease #CLINT, likely vasomotor mediated resolved #Hyponatremia #Chronic alcoholism #Cannabis dependence #Morbid obesity Regular diet IV fluid Meropenem IV CT scan showed Multiple ill-defined hypodense lesions of the liver. Patient refused MRI CT abdomen pelvis triple phase with IV contrast showed large multi-septated lesion in the right hepatic lobe measuring up to 13.7 cm, satellite lesions adjacent, additional multi septated lesion in the anterior right hepatic lobe measuring up to 4.8 cm Tumor markers negative Stool occult blood negative, few stool white cells Stool culture negative for Shiga toxin, C diff, Campylobacter GI on board Interventional Radiology consulted for drainage/IR guided liver biopsy: Patient underwent liver abscess drainage today on 07/18/2024 Awaiting fluid analysis results, preliminary culture negative Plan discussed with patient for more than 25 minutes, full code Plan discussed with Dr. Díaz Plan discussed with: Patient, Other (RN) Dietary Evaluation Review Comments: Maintain adequate oral intakes >75% of meals Expected Outcomes/Goals: Improved nutrition related-lab values, avoidance of alcohol Protein Calorie Malnutrition: N/A Date of Service: Jul 20, 2024 Billing Provider: ELEAZAR DÍAZ MD Common Visit Codes: [id number] INP/OBS CARE(HIGH) ANGUS GILLESPIE RESIDENT Jul 20, 2024 14:18 ELEAZAR DÍAZ MD Jul 20, 2024 15:53
[2024-07-21] VITALS (7 sets, daily range): BP systolic 112–136; BP diastolic 68–86; PULSE 85–110; RESP 14–20; TEMP 97.5–102.9; O2SAT 92–97
[2024-07-21 07:03] LABS: Basophils # (auto) 0 10 ^3/uL (0-0.2); Basophils % (auto) 0.4 % (0.0-2.0); Eosinophils # (auto) 0.1 10 ^3/uL (0-0.8); Eosinophils % (auto) 0.8 % (0.0-7.0); Hemoglobin 10.4 g/dL (13.5-17.5); Lymphocytes # (auto) 2.4 10 ^3/uL (0.4-5.4); Lymphocytes % (auto) 19.2 % (10.0-50.0); Mean Corpuscular Hgb Conc. 32.5 g/dL (32.0-36.0); Mean Corpuscular Volume 92.3 fL (80.0-100.0); Monocytes # (auto) 1.1 10 ^3/uL (0-1.3); Monocytes % (auto) 8.5 % (0.0-12.0); Neutrophils # (auto) 8.8 10 ^3/uL (1.6-8.6); Neutrophils % (auto) 71.1 % (37.0-80.0); Platelet Count (auto) 471 10^3/uL (140-450); Red Blood Cells 3.47 10^6/uL (4.5-5.90); White Blood Cell 12.4 10^3/uL (4.4-10.8)
--- NOTE | 2024-07-21 11:19 | DVHPNRES ---
Progress Note Date Seen: Jul 21, 2024 Resident Creating Document: ANGUS GILLESPIE RESIDENT Has the PT tested + for MRSA If YES, has PT been informed?: No Medical Necessity Reason Pt with a Central, PICC or Fol: No Subjective Review of Systems Patient reported pain in the right upper quadrant, moderate in intensity 5/10 Reports passing flatus and bowel movement, no melena or hematochezia Patient was noted to have fever 100 F following which acetaminophen 650 mg was given, cooling measures Patient was advised to get a MRI abdomen done for better imaging of the liver abscess but he denied as he can not tolerate being in the MRI machine for long. CT abdomen pelvis with triple phase contrast was done which showed large multi- septated lesion in the right hepatic lobe measuring up to 13.7 cm. Small satellite lesions directly adjacent to this, as well as an additional mellitus update lesion in the anterior right hepatic lobe measuring up to 4.8 cm. Findings are favored to represent hepatic abscesses: However, a cystic neoplasm can not be entirely excluded by imaging. 07/18/2024: Patient underwent CT-guided percutaneous drainage of liver abscess along with insertion of catheter with drainage of 400 mL serosanguineous fluid 07/19/2024: Bag replaced, patient had a further drainage of 100 mL serosanguineous fluid 07/20/2024: Minimal serosanguineous reddish-brown drainage in the bag 07/21/2019 5:1 50 mL serosanguineous, brownish drainage in the bag noted Objective vital signs Vital Sign Date Time Temp Pulse Resp B/P (MAP) Pulse Ox O2 Delivery O2 Flow Rate FiO2 07/21/24 08:30 98.9 90 16 136/86 (103) 93 98.9 07/21/24 08:00 Room Air* 0 21 Total Intake and Output 07/20/24 07/20/24 07/21/24 15:00 23:00 07:00 Intake Total 50 ml 1090 ml 270 ml Output Total 1280 ml 620 ml Balance 50 ml -190 ml -350 ml medications Current Medications Medications Dose Ordered Sig/Herlinda Route Start Time Stop Time Status Last Admin Dose Admin Pantoprazole Sodium 40 mg DAILY IV 07/15/24 10:00 07/21/24 09:20 40 MG Meropenem 50 ml @ 17 mls/hr Q8HR IV 07/15/24 14:00 07/21/24 05:33 17 MLS/HR Acetaminophen 1,000 mg TID PO 07/16/24 22:00 UNV Acetaminophen 650 mg Q8HR PO 07/17/24 14:00 UNV Acetaminophen 650 mg Q6HP PRN PO 07/17/24 10:45 07/20/24 23:55 650 MG Ketorolac Tromethamine 15 mg Q6HPRN PRN IV 07/17/24 11:30 07/22/24 11:29 07/20/24 21:42 15 MG Examination Constitutional: Patient was alert and oriented to time, place and person. Patient reports improvement in right upper quadrant pain and fever since undergoing drainage of liver abscess. Gen - no pallor, mild scleral icterus, no cyanosis, no clubbing, no LAD, no edema . Skin - Patients skin is warm and dry. HEENT - normocephalic, atraumatic, dry mucous membranes. Neck - full ROM, no LAD, no JVD Pulmonary - B/L vesicular breath sounds. no crackles , no wheezing cardiovascular - normal S1,S2 heard. no murmurs heard. peripheral pulses normal radial 2+, pedal 2+. GI - soft abdomen with tenderness to palpation in the right upper quadrant . no hepatospleenomegaly. Bowel sounds normoactive Neurological - Bilateral upper extremity strength 5/5, bilateral lower extremity strength 5/5, no facial droop, normal speech, no tremor, no sensory deficit laboratory and microbiology Laboratory Tests 07/21/24 05:10 07/20/24 07:05 Test 07/20/24 07:05 Range/Units Serum Glucose 91 74-106 mg/dL Microbiology Date/Time Source Procedure Growth Status 07/18/24 11:20 Aspirate Gram Stain - Final Resulted 07/18/24 11:20 Aspirate Body Fluid Culture - Preliminary Resulted 07/16/24 06:56 Stool Stool Culture - Final Complete 07/16/24 06:56 Stool Shiga Toxin I & II - Final Complete 07/16/24 06:56 Stool Clostridium difficile Toxin Assay - Final Complete 07/14/24 17:22 Voided Urine Urine Culture - Final Complete 07/14/24 10:17 Blood Blood Culture - Final NO GROWTH AFTER 5 DAYS OF INCUBATION. Complete Labs and/or images reviewed: Labs reviewed by me, Image(s) reviewed by me Problem List/Assessment/Plan Problem List/Assessment/Plan #Sepsis secondary to ?liver abscess #Liver mass #Possible Pyogenic liver abscesses #Melena #Anemia secondary to above #Transaminitis secondary to liver abscess versus alcoholic liver disease #CLINT, likely vasomotor mediated resolved #Hyponatremia #Chronic alcoholism #Cannabis dependence #Morbid obesity Regular diet IV fluid Meropenem IV CT scan showed Multiple ill-defined hypodense lesions of the liver. Patient refused MRI CT abdomen pelvis triple phase with IV contrast showed large multi-septated lesion in the right hepatic lobe measuring up to 13.7 cm, satellite lesions adjacent, additional multi septated lesion in the anterior right hepatic lobe measuring up to 4.8 cm Tumor markers negative Stool occult blood negative, few stool white cells Stool culture negative for Shiga toxin, C diff, Campylobacter GI on board Interventional Radiology consulted for drainage/IR guided liver biopsy: Patient underwent liver abscess drainage today on 07/18/2024 Awaiting fluid analysis results, preliminary culture negative Plan discussed with patient for more than 25 minutes, full code Plan discussed with Dr. Díaz Plan discussed with: Patient, Spouse, Other (RN) Dietary Evaluation Review Comments: Maintain adequate oral intakes >75% of meals Expected Outcomes/Goals: Improved nutrition related-lab values, avoidance of alcohol Protein Calorie Malnutrition: N/A Date of Service: Jul 21, 2024 Billing Provider: ELEAZAR DÍAZ MD Common Visit Codes: [id number] INP/OBS CARE(HIGH) ANGUS GILLESPIE RESIDENT Jul 21, 2024 11:19 ELEAZAR DÍAZ MD Jul 21, 2024 20:45
--- NOTE | 2024-07-21 11:32 | DVHPNRES ---
Progress Note Date Seen: Jul 21, 2024 Resident Creating Document: JOON MOLINA RESIDENT Has the PT tested + for MRSA If YES, has PT been informed?: No Medical Necessity Reason Pt with a Central, PICC or Fol: No Subjective Review of Systems Patient seen and examined at bedside. No new complaints. Continued to get drainage via catheter. Complaining of mild abdominal pain. No nausea, no vomiting, no diarrhea. Tolerating diet well. Objective vital signs Vital Sign Date Time Temp Pulse Resp B/P (MAP) Pulse Ox O2 Delivery O2 Flow Rate FiO2 07/21/24 08:30 98.9 90 16 136/86 (103) 93 98.9 07/21/24 08:00 Room Air* 0 21 Total Intake and Output 07/20/24 07/20/24 07/21/24 15:00 23:00 07:00 Intake Total 50 ml 1090 ml 270 ml Output Total 1280 ml 620 ml Balance 50 ml -190 ml -350 ml medications Current Medications Medications Dose Ordered Sig/Herlinda Route Start Time Stop Time Status Last Admin Dose Admin Pantoprazole Sodium 40 mg DAILY IV 07/15/24 10:00 07/21/24 09:20 40 MG Meropenem 50 ml @ 17 mls/hr Q8HR IV 07/15/24 14:00 07/21/24 05:33 17 MLS/HR Acetaminophen 1,000 mg TID PO 07/16/24 22:00 UNV Acetaminophen 650 mg Q8HR PO 07/17/24 14:00 UNV Acetaminophen 650 mg Q6HP PRN PO 07/17/24 10:45 07/20/24 23:55 650 MG Ketorolac Tromethamine 15 mg Q6HPRN PRN IV 07/17/24 11:30 07/22/24 11:29 07/20/24 21:42 15 MG Examination General Appearance: Cooperative. Well developed. Well nourished. NAD Head Exam: Normal inspection Neck Exam: Normal inspection. Non-tender. Normal alignment Pulmonary/Respiratory: Chest non-tender. Clear bilateral breath sounds Cardiovascular/Chest: Regular rate and rhythm. No murmurs. No JVD. Peripheral Pulses: 2+ Radial (R). 2+ Radial (L). 2+ Pedal (R). 2+ Pedal (L) Abdominal Exam: Normal bowel sounds. Soft. Nontender. No hepatospenomegaly. No masses, presence of percutaneous drainage over right upper quadrant abdominal region. Ankle Exam: Negative ankle edema Lower extremities: Negative lower extremity edema Neuro/Mental Status: A&O x4. Coherent Thoughts/Psych: Normal thought pattern. Appropriate mood and affect. Good judgement and insight Appearance: In no acute distress Skin Exam: Normal inspection. Normal color. Warm. Dry laboratory and microbiology Laboratory Tests 07/21/24 05:10 07/20/24 07:05 Test 07/20/24 07:05 Range/Units Serum Glucose 91 74-106 mg/dL Microbiology Date/Time Source Procedure Growth Status 07/18/24 11:20 Aspirate Gram Stain - Final Resulted 07/18/24 11:20 Aspirate Body Fluid Culture - Preliminary Resulted 07/16/24 06:56 Stool Stool Culture - Final Complete 07/16/24 06:56 Stool Shiga Toxin I & II - Final Complete 07/16/24 06:56 Stool Clostridium difficile Toxin Assay - Final Complete 07/14/24 17:22 Voided Urine Urine Culture - Final Complete 07/14/24 10:17 Blood Blood Culture - Final NO GROWTH AFTER 5 DAYS OF INCUBATION. Complete Problem List/Assessment/Plan Problem List/Assessment/Plan Multiloculated liver abscess Sepsis due to above Liver mass can not be ruled out pending biopsy results Transaminitis likely due to liver abscess CLINT likely hemodynamically mediated Chronic alcoholism Morbid obesity Stool occult negative, no melena. Plan/recommendation Dr Sal -patient will need GI clinic follow-up for management of percutaneous drainage. Recommend ID consultation for antibiotics and follow up in outpatient setting for continuous imaging monitoring of liver abscess. Patient will need at least 4-6 weeks of antibiotic. -underwent CT-guided percutaneous drainage of liver abscess, continued to get drainage via catheter. Culture still pending. -continue Protonix 40 mg, can transition to oral. -pending biopsy results and pending cytology , culture, Gram stain of purulent drainage. -stool study negative for occult, she can toxin, C diff. hepatitis panel negative. -continue IV fluid hydration -continue to monitor liver function tests -advanced diet as per toleration -we will continue to monitor this patient. Plan discussed with: Patient, Other (RN) Dietary Evaluation Review Comments: Maintain adequate oral intakes >75% of meals Expected Outcomes/Goals: Improved nutrition related-lab values, avoidance of alcohol Protein Calorie Malnutrition: N/A KOSHIYA,JOON RESIDENT Jul 21, 2024 11:32
[2024-07-22] VITALS (8 sets, daily range): BP systolic 119–141; BP diastolic 67–92; PULSE 83–118; RESP 14–20; TEMP 97.7–100.9; O2SAT 92–98
[2024-07-22 07:05] LABS: Anion Gap 9 (5-15); BUN/Creatinine Ratio 12.2 (10.0-20.0); Blood Urea Nitrogen 10 mg/dL (9-23); Calcium 9.3 mg/dL (8.7-10.4); Carbon Dioxide 26 mmol/L (20-31); Chloride 101 mmol/L (98-107); Glucose 92 mg/dL (74-106); Potassium 4.4 mmol/L (3.5-5.1)
[2024-07-22 07:06] LABS: Alanine Aminotransferase 153 U/L (7-40); Albumin 3.8 g/dL (3.2-4.8); Alkaline Phosphatase 187 U/L (46-116); Aspartate Aminotransferase 74 U/L (13-40); Sodium 136 mmol/L (136-145); Total Protein 7.8 g/dL (5.7-8.2)
[2024-07-22 08:05] LABS: Basophils # (auto) 0.1 10 ^3/uL (0-0.2); Basophils % (auto) 0.5 % (0.0-2.0); Eosinophils # (auto) 0.1 10 ^3/uL (0-0.8); Eosinophils % (auto) 0.5 % (0.0-7.0); Hematocrit 32.9 % (41.0-53.0); Hemoglobin 10.8 g/dL (13.5-17.5); Lymphocytes % (auto) 15.8 % (10.0-50.0); Mean Corpuscular Hemoglobin 30.1 pg (28.0-32.0); Mean Corpuscular Hgb Conc. 32.7 g/dL (32.0-36.0); Monocytes % (auto) 7.6 % (0.0-12.0); Neutrophils # (auto) 9.7 10 ^3/uL (1.6-8.6); Neutrophils % (auto) 75.6 % (37.0-80.0); Nucleated Red Blood Cells % 0.1 %; Platelet Count (auto) 449 10^3/uL (140-450); Red Blood Cells 3.58 10^6/uL (4.5-5.90); Red Cell Distribution Width 14.2 % (11.8-14.3); White Blood Cell 12.8 10^3/uL (4.4-10.8)
[2024-07-22] MEDS: metroNIDAZOLE 500MG/100ML 100 ML IV SCH (12:02)
--- NOTE | 2024-07-22 13:45 | DVHPNRES ---
Progress Note Date Seen: Jul 22, 2024 Resident Creating Document: ANGUS GILLESPIE RESIDENT Has the PT tested + for MRSA If YES, has PT been informed?: No Medical Necessity Reason Pt with a Central, PICC or Fol: No Subjective Review of Systems Patient reported pain in the right upper quadrant, moderate in intensity 5/10 Reports passing flatus and bowel movement, no melena or hematochezia Patient was noted to have fever 100 F following which acetaminophen 650 mg was given, cooling measures Patient was advised to get a MRI abdomen done for better imaging of the liver abscess but he denied as he can not tolerate being in the MRI machine for long. CT abdomen pelvis with triple phase contrast was done which showed large multi- septated lesion in the right hepatic lobe measuring up to 13.7 cm. Small satellite lesions directly adjacent to this, as well as an additional mellitus update lesion in the anterior right hepatic lobe measuring up to 4.8 cm. Findings are favored to represent hepatic abscesses: However, a cystic neoplasm can not be entirely excluded by imaging. 07/18/2024: Patient underwent CT-guided percutaneous drainage of liver abscess along with insertion of catheter with drainage of 400 mL serosanguineous fluid 07/19/2024: Bag replaced, patient had a further drainage of 100 mL serosanguineous fluid 07/20/2024: Minimal serosanguineous reddish-brown drainage in the bag 07/21/2019 5:1 50 mL serosanguineous, brownish drainage in the bag noted Patient spiked a fever overnight, consulted Infectious Disease and added metronidazole Objective vital signs Vital Sign Date Time Temp Pulse Resp B/P (MAP) Pulse Ox O2 Delivery O2 Flow Rate FiO2 07/22/24 13:00 97.7 118 18 119/80 (93) 92 97.7 07/22/24 08:00 Room Air* 0 21 Total Intake and Output 07/21/24 07/21/24 07/22/24 15:00 23:00 07:00 Intake Total 50 ml 50 ml 800 ml Output Total 150 ml 400 ml Balance -100 ml 50 ml 400 ml medications Current Medications Medications Dose Ordered Sig/Herlinda Route Start Time Stop Time Status Last Admin Dose Admin Pantoprazole Sodium 40 mg DAILY IV 07/15/24 10:00 07/22/24 08:19 40 MG Meropenem 50 ml @ 17 mls/hr Q8HR IV 07/15/24 14:00 07/22/24 05:53 17 MLS/HR Acetaminophen 1,000 mg TID PO 07/16/24 22:00 UNV Acetaminophen 650 mg Q8HR PO 07/17/24 14:00 UNV Metronidazole 100 ml @ 100 mls/hr Q8H IV 07/22/24 13:00 07/22/24 12:02 100 MLS/HR Acetaminophen 625 mg Q6HP PRN PO 07/22/24 13:15 Examination Constitutional: Patient was alert and oriented to time, place and person. Patient reports improvement in right upper quadrant pain and fever since undergoing drainage of liver abscess. Gen - no pallor, mild scleral icterus, no cyanosis, no clubbing, no LAD, no edema . Skin - Patients skin is warm and dry. HEENT - normocephalic, atraumatic, dry mucous membranes. Neck - full ROM, no LAD, no JVD Pulmonary - B/L vesicular breath sounds. no crackles , no wheezing cardiovascular - normal S1,S2 heard. no murmurs heard. peripheral pulses normal radial 2+, pedal 2+. GI - soft abdomen with tenderness to palpation in the right upper quadrant . no hepatospleenomegaly. Bowel sounds normoactive Neurological - Bilateral upper extremity strength 5/5, bilateral lower extremity strength 5/5, no facial droop, normal speech, no tremor, no sensory deficit laboratory and microbiology Laboratory Tests 07/22/24 05:39 Test 07/22/24 05:39 Range/Units Serum Glucose 92 74-106 mg/dL Microbiology Date/Time Source Procedure Growth Status 07/18/24 11:20 Aspirate Gram Stain - Final Resulted 07/18/24 11:20 Aspirate Body Fluid Culture - Preliminary Resulted 07/16/24 06:56 Stool Stool Culture - Final Complete 07/16/24 06:56 Stool Shiga Toxin I & II - Final Complete 07/16/24 06:56 Stool Clostridium difficile Toxin Assay - Final Complete 07/14/24 17:22 Voided Urine Urine Culture - Final Complete 07/14/24 10:17 Blood Blood Culture - Final NO GROWTH AFTER 5 DAYS OF INCUBATION. Complete Labs and/or images reviewed: Labs reviewed by me, Image(s) reviewed by me Problem List/Assessment/Plan Problem List/Assessment/Plan #Sepsis secondary to ?liver abscess #Liver mass #Possible Pyogenic liver abscesses #Melena #Anemia secondary to above #Transaminitis secondary to liver abscess versus alcoholic liver disease #CLINT, likely vasomotor mediated resolved #Hyponatremia #Chronic alcoholism #Cannabis dependence #Morbid obesity Regular diet IV fluid Meropenem IV CT scan showed Multiple ill-defined hypodense lesions of the liver. Patient refused MRI CT abdomen pelvis triple phase with IV contrast showed large multi-septated lesion in the right hepatic lobe measuring up to 13.7 cm, satellite lesions adjacent, additional multi septated lesion in the anterior right hepatic lobe measuring up to 4.8 cm Tumor markers negative Stool occult blood negative, few stool white cells Stool culture negative for Shiga toxin, C diff, Campylobacter GI on board Interventional Radiology consulted for drainage/IR guided liver biopsy: Patient underwent liver abscess drainage today on 07/18/2024 Awaiting fluid analysis results, preliminary culture negative - consulted infectious disease IV metronidazole Acetaminophen as needed for fever Plan discussed with patient for more than 25 minutes, full code Plan discussed with Dr. Díaz Plan discussed with: Patient, Spouse, Other (RN) My Orders My Orders Orders - ANGUS GILLESPIE RESIDENT Procedure Category Date Status Time Acetaminophen Tablet PHA 07/22/24 In Process (Tylenol Tablet) 13:15 Dietary Evaluation Review Comments: Maintain adequate oral intakes >75% of meals Expected Outcomes/Goals: Improved nutrition related-lab values, avoidance of alcohol Protein Calorie Malnutrition: N/A Date of Service: Jul 22, 2024 Billing Provider: ELEAZAR DÍAZ MD Common Visit Codes: [id number] INP/OBS CARE(HIGH) ANGUS GILLESPIE Jul 22, 2024 13:45 ELEAZAR DÍAZ MD Jul 26, 2024 16:07
--- NOTE | 2024-07-22 17:35 | DVHPN2 ---
Progress Note Date Seen: Jul 22, 2024 Resident Creating Document: JOON MOLINA RESIDENT Has the PT tested + for MRSA If YES, has PT been informed?: No Medical Necessity Reason Pt with a Central, PICC or Fol: No Subjective Review of Systems Patient seen and examined at bedside. No new complaints. Continue getting drained via catheter. No complaints abdominal pain. Objective vital signs Vital Sign Date Time Temp Pulse Resp B/P (MAP) Pulse Ox O2 Delivery O2 Flow Rate FiO2 07/22/24 13:00 97.7 118 18 119/80 (93) 92 97.7 07/22/24 08:00 Room Air* 0 21 Total Intake and Output 07/21/24 07/21/24 07/22/24 15:00 23:00 07:00 Intake Total 50 ml 50 ml 800 ml Output Total 150 ml 400 ml Balance -100 ml 50 ml 400 ml medications Current Medications Medications Dose Ordered Sig/Herlinda Route Start Time Stop Time Status Last Admin Dose Admin Pantoprazole Sodium 40 mg DAILY IV 07/15/24 10:00 07/22/24 08:19 40 MG Acetaminophen 1,000 mg TID PO 07/16/24 22:00 UNV Acetaminophen 650 mg Q8HR PO 07/17/24 14:00 UNV Acetaminophen 625 mg Q6HP PRN PO 07/22/24 13:15 Ceftriaxone Sodium/Dextrose 50 ml @ 50 mls/hr DAILY IV 07/23/24 10:00 Examination General Appearance: Cooperative. Well developed. Well nourished. NAD Head Exam: Normal inspection Neck Exam: Normal inspection. Non-tender. Normal alignment Pulmonary/Respiratory: Chest non-tender. Clear bilateral breath sounds Cardiovascular/Chest: Regular rate and rhythm. No murmurs. No JVD. Peripheral Pulses: 2+ Radial (R). 2+ Radial (L). 2+ Pedal (R). 2+ Pedal (L) Abdominal Exam: Normal bowel sounds. Soft. Nontender. No hepatospenomegaly. No masses, presence of percutaneous drainage over right upper quadrant abdominal region. Ankle Exam: Negative ankle edema Lower extremities: Negative lower extremity edema Neuro/Mental Status: A&O x4. Coherent Thoughts/Psych: Normal thought pattern. Appropriate mood and affect. Good judgement and insight Appearance: In no acute distress Skin Exam: Normal inspection. Normal color. Warm. Dry laboratory and microbiology Laboratory Tests 07/22/24 05:39 Test 07/22/24 05:39 Range/Units Serum Glucose 92 74-106 mg/dL Microbiology Date/Time Source Procedure Growth Status 07/18/24 11:20 Aspirate Gram Stain - Final Resulted 07/18/24 11:20 Aspirate Body Fluid Culture - Preliminary Resulted 07/16/24 06:56 Stool Stool Culture - Final Complete 07/16/24 06:56 Stool Shiga Toxin I & II - Final Complete 07/16/24 06:56 Stool Clostridium difficile Toxin Assay - Final Complete 07/14/24 17:22 Voided Urine Urine Culture - Final Complete 07/14/24 10:17 Blood Blood Culture - Final NO GROWTH AFTER 5 DAYS OF INCUBATION. Complete Problem List/Assessment/Plan Problem List/Assessment/Plan Multiloculated liver abscess Sepsis due to above Liver mass can not be ruled out pending biopsy results Transaminitis likely due to liver abscess CLINT likely hemodynamically mediated Chronic alcoholism Morbid obesity Stool occult negative, no melena. Plan/recommendation Dr Sal -plan for repeat CT abdominal pelvis for evaluation of liver abscess over weekend, to assess status of multi loculated liver abscess. -patient will need GI clinic follow-up for management of percutaneous drainage. Recommend ID consultation for antibiotics and follow up in outpatient setting for continuous imaging monitoring of liver abscess. Patient will need at least 4-6 weeks of antibiotic. -underwent CT-guided percutaneous drainage of liver abscess, continued to get drainage via catheter. Culture still pending. -continue Protonix 40 mg, can transition to oral. -pending biopsy results and pending cytology , culture, Gram stain of purulent drainage. -stool study negative for occult, she can toxin, C diff. hepatitis panel negative. -continue IV fluid hydration -continue to monitor liver function tests -advanced diet as per toleration -we will continue to monitor this patient. Plan discussed with: Patient, Other (RN) Dietary Evaluation Review Comments: Maintain adequate oral intakes >75% of meals Expected Outcomes/Goals: Improved nutrition related-lab values, avoidance of alcohol Protein Calorie Malnutrition: N/A JOON MOLINA RESIDENT Jul 22, 2024 17:35
[2024-07-22] MEDS: ACETAMINOPHEN 325 MG TAB PO PRN (18:36)
[2024-07-23] VITALS (8 sets, daily range): BP systolic 115–130; BP diastolic 64–79; PULSE 90–101; RESP 18–20; TEMP 97.6–101.5; O2SAT 93–98
[2024-07-23 07:23] LABS: Basophils # (auto) 0.1 10 ^3/uL (0-0.2); Basophils % (auto) 0.6 % (0.0-2.0); Eosinophils # (auto) 0.1 10 ^3/uL (0-0.8); Eosinophils % (auto) 1.2 % (0.0-7.0); Hematocrit 32.4 % (41.0-53.0); Hemoglobin 10.8 g/dL (13.5-17.5); Lymphocytes # (auto) 1.4 10 ^3/uL (0.4-5.4); Lymphocytes % (auto) 16.1 % (10.0-50.0); Mean Corpuscular Hemoglobin 30.3 pg (28.0-32.0); Mean Corpuscular Hgb Conc. 33.3 g/dL (32.0-36.0); Mean Corpuscular Volume 90.9 fL (80.0-100.0); Monocytes # (auto) 0.9 10 ^3/uL (0-1.3); Monocytes % (auto) 9.5 % (0.0-12.0); Neutrophils # (auto) 6.5 10 ^3/uL (1.6-8.6); Neutrophils % (auto) 72.6 % (37.0-80.0); Platelet Count (auto) 387 10^3/uL (140-450); Red Blood Cells 3.56 10^6/uL (4.5-5.90); White Blood Cell 8.9 10^3/uL (4.4-10.8)
[2024-07-23 07:34] LABS: Albumin 3.7 g/dL (3.2-4.8); Anion Gap 9 (5-15); BUN/Creatinine Ratio 12.9 (10.0-20.0); Blood Urea Nitrogen 9 mg/dL (9-23); Calcium 9.3 mg/dL (8.7-10.4); Carbon Dioxide 25 mmol/L (20-31); Chloride 102 mmol/L (98-107); Glucose 101 mg/dL (74-106); Potassium 4.4 mmol/L (3.5-5.1)
[2024-07-23 07:35] LABS: Total Protein 7.6 g/dL (5.7-8.2)
[2024-07-23 07:38] LABS: Bilirubin, Total 0.8 mg/dL (0.2-1.0)
[2024-07-23 07:44] LABS: Alanine Aminotransferase 144 U/L (7-40); Alkaline Phosphatase 174 U/L (46-116); Aspartate Aminotransferase 79 U/L (13-40); Sodium 136 mmol/L (136-145)
[2024-07-23] MEDS: cefTRIAXone 2GM/50ML D5W 50 ML IV SCH (10:08)
--- NOTE | 2024-07-23 14:42 | DVHPN2 ---
Progress Note Date Seen: Jul 23, 2024 Resident Creating Document: JASMEET ARROYO RESIDENT Has the PT tested + for MRSA If YES, has PT been informed?: No Medical Necessity Reason Pt with a Central, PICC or Fol: No Subjective Review of Systems Patient was seen and examined bedside. He is alert oriented x3. No other active complaint Objective vital signs Vital Sign Date Time Temp Pulse Resp B/P (MAP) Pulse Ox O2 Delivery O2 Flow Rate FiO2 07/23/24 13:00 101.5 95 20 130/79 (96) 96 101.5 07/22/24 20:00 Room Air* 0 21 Total Intake and Output 07/22/24 07/22/24 07/23/24 15:00 23:00 07:00 Intake Total 167 ml 514 ml 1950 ml Output Total 900 ml Balance 167 ml 514 ml 1050 ml medications Current Medications Medications Dose Ordered Sig/Herlinda Route Start Time Stop Time Status Last Admin Dose Admin Pantoprazole Sodium 40 mg DAILY IV 07/15/24 10:00 07/23/24 10:07 40 MG Acetaminophen 1,000 mg TID PO 07/16/24 22:00 UNV Acetaminophen 650 mg Q8HR PO 07/17/24 14:00 UNV Acetaminophen 625 mg Q6HP PRN PO 07/22/24 13:15 07/23/24 00:53 625 MG Ceftriaxone Sodium/Dextrose 50 ml @ 50 mls/hr DAILY IV 07/23/24 10:00 07/23/24 10:08 50 MLS/HR Examination Physical examination: General Appearance: Alert, Oriented X3, Cooperative, No acute distress HEENT: Atraumatic, PERRLA, EOMI, Mucous membrane moist/pink Respiratory: Clear to auscultation, Normal air movement Cardiovascular: Regular rate, Normal S1, Normal S2, No murmurs, no chest wall tenderness Abdominal: Normal bowel sounds, Soft, No tenderness, No hepatospenomegaly, No masses Extremities: No clubbing, No cyanosis, No edema, Normal pulses, No tenderness/swelling Skin: No rashes, No breakdown, No significant lesion Neuro: Normal gait, Normal speech, Strength at 5/5 X4 ext, Normal tone, Sensation intact, Cranial nerves 3-12 NL, Reflexes 2+ Psych/Mental Status: Mental status NL, Mood NL laboratory and microbiology Laboratory Tests 07/23/24 05:54 Test 07/23/24 05:54 Range/Units Serum Glucose 101 74-106 mg/dL Microbiology Date/Time Source Procedure Growth Status 07/22/24 17:50 Other Drainage Aerobic Culture - Preliminary Resulted 07/18/24 11:20 Aspirate Gram Stain - Final Complete 07/18/24 11:20 Aspirate Body Fluid Culture - Final Complete 07/16/24 06:56 Stool Stool Culture - Final Complete 07/16/24 06:56 Stool Shiga Toxin I & II - Final Complete 07/16/24 06:56 Stool Clostridium difficile Toxin Assay - Final Complete 07/14/24 17:22 Voided Urine Urine Culture - Final Complete 07/14/24 10:17 Blood Blood Culture - Final NO GROWTH AFTER 5 DAYS OF INCUBATION. Complete Labs and/or images reviewed: Labs reviewed by me, Image(s) reviewed by me Problem List/Assessment/Plan Problem List/Assessment/Plan Problem List/Assessment/Plan Multiloculated liver abscess Sepsis due to above Liver mass can not be ruled out pending biopsy results Transaminitis likely due to liver abscess CLINT likely hemodynamically mediated Chronic alcoholism Morbid obesity Stool occult negative, no melena. Plan/recommendation -plan for repeat CT abdominal pelvis for evaluation of liver abscess on Thursday, to assess status of multi loculated liver abscess. - body fluid purulent discharge negative for gram stain and culture - Infectious disease on board and recommended IV ceftriaxone 1 g daily, discontinued IV meropenem and IV metronidazole. -patient will need GI clinic follow-up for management of percutaneous drainage. -underwent CT-guided percutaneous drainage of liver abscess, continued to get drainage via catheter. Culture still pending. -continue Protonix 40 mg, can transition to oral. -pending biopsy results and pending cytology , culture, Gram stain of purulent drainage. -stool study negative for occult, shiga toxin, C diff. hepatitis panel negative. -continue IV fluid hydration -continue to monitor liver function tests -advanced diet as per toleration -we will continue to monitor this patient. Plan discussed with Dr. Sal Plan discussed with: Patient, Other Dietary Evaluation Review Comments: Maintain adequate oral intakes >75% of meals Expected Outcomes/Goals: Improved nutrition related-lab values, avoidance of alcohol Protein Calorie Malnutrition: N/A JASMEET ARROYO RESIDENT Jul 23, 2024 14:42
--- NOTE | 2024-07-23 20:33 | DVHPNRES ---
Progress Note Date Seen: Jul 23, 2024 Resident Creating Document: LORRAINE ESCOBEDO RESIDENT Has the PT tested + for MRSA If YES, has PT been informed?: No Medical Necessity Reason Pt with a Central, PICC or Fol: No Subjective Review of Systems Kody Ramirez is a 38-year-old male who presented to the ER with a complaint of right upper quadrant pain and melena for the past 8 days. Associated features include fever, chills, low appetite, diarrhea. He has been having 4-5 loose watery tarry black bowel movements for the past few days. Abdominal pain is right-sided, intermittent, increases with any kind of bodily movement or food. He reports no travel history/hiking or dining outside. Denies any other associated symptoms. Past medical history: Denies Surgical history: Denies Family history: Noncontributory Social history: Lives with family in [place]. Patient is in a monogamous relationship. Recent tobacco smoker, quit two weeks ago (2.5 pack-year history of smoking). Ethanol abuse (4-5 shots per day). Reports cannabinoid use. Denies other drug abuse Allergies: Denies Home medication: Denies Has no PCP and has never seen a physician Patient seen and examined at the bedside. Reports mild pain close to surgical site of drainage. Drain continues presenting dab it of approximately 50-100 mL per day of serosanguineous/purulent fluid. Objective vital signs Vital Sign Date Time Temp Pulse Resp B/P (MAP) Pulse Ox O2 Delivery O2 Flow Rate FiO2 07/23/24 17:00 98.9 99 19 115/75 (88) 94 98.9 07/23/24 08:00 Room Air* 0 21 Total Intake and Output 07/22/24 07/22/24 07/23/24 15:00 23:00 07:00 Intake Total 167 ml 514 ml 1950 ml Output Total 900 ml Balance 167 ml 514 ml 1050 ml medications Current Medications Medications Dose Ordered Sig/Herlinda Route Start Time Stop Time Status Last Admin Dose Admin Pantoprazole Sodium 40 mg DAILY IV 07/15/24 10:00 07/23/24 10:07 40 MG Acetaminophen 1,000 mg TID PO 07/16/24 22:00 UNV Acetaminophen 650 mg Q8HR PO 07/17/24 14:00 UNV Acetaminophen 625 mg Q6HP PRN PO 07/22/24 13:15 07/23/24 00:53 625 MG Ceftriaxone Sodium/Dextrose 50 ml @ 50 mls/hr DAILY IV 07/23/24 10:00 07/23/24 10:08 50 MLS/HR Examination Patient lying in bed, in no acute distress General: Lucid, febrile (T-max a 102 F), mucosae are moist Cardiovascular: Normal S1 and S2. No murmurs, gallops or rubs Respiratory: Normal ventilation mechanics. Clear lung sounds on auscultation Abdomen: Soft, mild tenderness in surgical site of right upper quadrant, rest of abdomen is nontender, hepatomegaly, normal bowel sounds. Word upper quadrant drainage presents serosanguineous/purulent fluid approximately 50 mL MSK/skin: Mobilizes 4 limbs. Skin is dry and warm Neurological: Oriented in 3 spheres. No motor no sensitive deficits. Pupils are isocoric and reactive laboratory and microbiology Laboratory Tests 07/23/24 05:54 Test 07/23/24 05:54 Range/Units Serum Glucose 101 74-106 mg/dL Microbiology Date/Time Source Procedure Growth Status 07/22/24 17:50 Other Drainage Gram Stain - Preliminary Resulted 07/22/24 17:50 Other Drainage Aerobic Culture - Preliminary Resulted 07/18/24 11:20 Aspirate Gram Stain - Final Complete 07/18/24 11:20 Aspirate Body Fluid Culture - Final Complete 07/16/24 06:56 Stool Stool Culture - Final Complete 07/16/24 06:56 Stool Shiga Toxin I & II - Final Complete 07/16/24 06:56 Stool Clostridium difficile Toxin Assay - Final Complete 07/14/24 17:22 Voided Urine Urine Culture - Final Complete 07/14/24 10:17 Blood Blood Culture - Final NO GROWTH AFTER 5 DAYS OF INCUBATION. Complete Problem List/Assessment/Plan Problem List/Assessment/Plan # Sepsis secondary to probable liver abscess # Febrile syndrome # Liver mass # Possible Pyogenic liver abscesses # Ruled out melena # Anemia # Transaminitis secondary to liver abscess versus alcoholic liver disease # CLINT, likely vasomotor mediated - resolved # Hyponatremia # Chronic alcoholism # Cannabis dependence # Morbid obesity Regular diet IV fluid On empiric IV antibiotic (ceftriaxone, previously on meropenem and metronidazole) CT abdomen pelvis triple phase with IV contrast showed large multi-septated lesion in the right hepatic lobe measuring up to 13.7 cm, satellite lesions adjacent, additional multi septated lesion in the anterior right hepatic lobe measuring up to 4.8 cm (patient refused MRI) Tumor markers negative Stool occult blood negative, few stool white cells Stool culture negative for Shiga toxin, C diff, Campylobacter GI on board Interventional Radiology consulted for drainage/IR guided liver biopsy: Patient underwent liver abscess drainage on 07/18/2024 periods fluid biopsies showed no malignancy, paucicellular abscess debris Awaiting fluid analysis results, preliminary culture negative Consulted infectious disease: Discontinued mid and ertapenem and metronidazole, currently only on ceftriaxone. Acetaminophen as needed for fever Plan discussed with patient for more than 25 minutes, full code Plan discussed with Dr. Mcdonald, patient and nurses: Patient continue with same febrile syndrome, all cultures negative at the moment, repeated today blood culture. Fluid analysis showed no malignancy, paucicellular abscess debris. Culture is negative at the moment. Appreciate GI and ID specialist input, who optimize medical therapy. Plan discussed with: Patient, Other (Nurses) Dietary Evaluation Review Comments: Maintain adequate oral intakes >75% of meals Expected Outcomes/Goals: Improved nutrition related-lab values, avoidance of alcohol Protein Calorie Malnutrition: N/A Date of Service: Jul 23, 2024 Billing Provider: EDWARD MCDONALD MD Common Visit Codes: [id number] INP/OBS CARE(HIGH) LORRAINE ESCOBEDO RESIDENT Jul 23, 2024 20:33 EDWARD MCDONALD MD Jul 24, 2024 09:49
[2024-07-24] VITALS (8 sets, daily range): BP systolic 102–125; BP diastolic 63–77; PULSE 80–110; RESP 18–20; TEMP 98.1–99; O2SAT 92–99
[2024-07-24 08:47] LABS: Basophils # (auto) 0.1 10 ^3/uL (0-0.2); Basophils % (auto) 0.9 % (0.0-2.0); Eosinophils # (auto) 0.1 10 ^3/uL (0-0.8); Eosinophils % (auto) 1.5 % (0.0-7.0); Hematocrit 32.5 % (41.0-53.0); Hemoglobin 10.8 g/dL (13.5-17.5); Lymphocytes # (auto) 1.8 10 ^3/uL (0.4-5.4); Lymphocytes % (auto) 23.3 % (10.0-50.0); Mean Corpuscular Hemoglobin 30.1 pg (28.0-32.0); Mean Corpuscular Hgb Conc. 33.2 g/dL (32.0-36.0); Mean Corpuscular Volume 90.5 fL (80.0-100.0); Monocytes % (auto) 12.5 % (0.0-12.0); Neutrophils # (auto) 4.8 10 ^3/uL (1.6-8.6); Neutrophils % (auto) 61.8 % (37.0-80.0); Platelet Count (auto) 383 10^3/uL (140-450); Red Blood Cells 3.59 10^6/uL (4.5-5.90); White Blood Cell 7.7 10^3/uL (4.4-10.8)
[2024-07-24 09:03] LABS: Albumin 3.8 g/dL (3.2-4.8); Anion Gap 9 (5-15); BUN/Creatinine Ratio 11.1 (10.0-20.0); Calcium 9.2 mg/dL (8.7-10.4); Carbon Dioxide 26 mmol/L (20-31); Chloride 102 mmol/L (98-107); Glucose 96 mg/dL (74-106); Magnesium 1.7 mg/dL (1.6-2.6); Potassium 4.2 mmol/L (3.5-5.1); Sodium 137 mmol/L (136-145)
[2024-07-24 09:04] LABS: Bilirubin, Total 0.6 mg/dL (0.2-1.0); Total Protein 7.8 g/dL (5.7-8.2)
[2024-07-24 09:23] LABS: Alanine Aminotransferase 154 U/L (7-40); Alkaline Phosphatase 164 U/L (46-116); Aspartate Aminotransferase 86 U/L (13-40); Blood Urea Nitrogen 8 mg/dL (9-23); CRP High Sensitivity 4.47 mg/dL (<1.0)
--- NOTE | 2024-07-24 09:34 | DVHPNRES ---
Progress Note Date Seen: Jul 24, 2024 Resident Creating Document: ANGUS GILLESPIE RESIDENT Has the PT tested + for MRSA If YES, has PT been informed?: No Medical Necessity Reason Pt with a Central, PICC or Fol: No Subjective Review of Systems Patient reported pain in the right upper quadrant, moderate in intensity 5/10 Reports passing flatus and bowel movement, no melena or hematochezia Patient was noted to have fever 100 F following which acetaminophen 650 mg was given, cooling measures Patient was advised to get a MRI abdomen done for better imaging of the liver abscess but he denied as he can not tolerate being in the MRI machine for long. CT abdomen pelvis with triple phase contrast was done which showed large multi- septated lesion in the right hepatic lobe measuring up to 13.7 cm. Small satellite lesions directly adjacent to this, as well as an additional mellitus update lesion in the anterior right hepatic lobe measuring up to 4.8 cm. Findings are favored to represent hepatic abscesses: However, a cystic neoplasm can not be entirely excluded by imaging. 07/18/2024: Patient underwent CT-guided percutaneous drainage of liver abscess along with insertion of catheter with drainage of 400 mL serosanguineous fluid 07/19/2024: Bag replaced, patient had a further drainage of 100 mL serosanguineous fluid 07/20/2024: Minimal serosanguineous reddish-brown drainage in the bag 07/21/2019 5:1 50 mL serosanguineous, brownish drainage in the bag noted Patient spiked a fever overnight, consulted Infectious Disease Objective vital signs Vital Sign Date Time Temp Pulse Resp B/P (MAP) Pulse Ox O2 Delivery O2 Flow Rate FiO2 07/24/24 09:00 98.1 80 18 113/72 (86) 93 98.1 07/24/24 08:00 Room Air* 0 21 Total Intake and Output 07/23/24 07/23/24 07/24/24 15:00 23:00 07:00 Intake Total 600 ml 1200 ml Output Total 1450 ml Balance 600 ml -250 ml medications Current Medications Medications Dose Ordered Sig/Herlinda Route Start Time Stop Time Status Last Admin Dose Admin Pantoprazole Sodium 40 mg DAILY IV 07/15/24 10:00 07/23/24 10:07 40 MG Acetaminophen 1,000 mg TID PO 07/16/24 22:00 UNV Acetaminophen 650 mg Q8HR PO 07/17/24 14:00 UNV Acetaminophen 625 mg Q6HP PRN PO 07/22/24 13:15 07/23/24 00:53 625 MG Ceftriaxone Sodium/Dextrose 50 ml @ 50 mls/hr DAILY IV 07/23/24 10:00 07/23/24 10:08 50 MLS/HR Examination Constitutional: Patient was alert and oriented to time, place and person. Patient reports improvement in right upper quadrant pain and fever since undergoing drainage of liver abscess. Gen - no pallor, mild scleral icterus, no cyanosis, no clubbing, no LAD, no edema . Skin - Patients skin is warm and dry. Noted to have a new onset fluid-filled blister a prox 1 cm by 2 cm near the right tube site HEENT - normocephalic, atraumatic, dry mucous membranes. Neck - full ROM, no LAD, no JVD Pulmonary - B/L vesicular breath sounds. no crackles , no wheezing cardiovascular - normal S1,S2 heard. no murmurs heard. peripheral pulses normal radial 2+, pedal 2+. GI - soft abdomen with tenderness to palpation in the right upper quadrant . no hepatospleenomegaly. Bowel sounds normoactive Neurological - Bilateral upper extremity strength 5/5, bilateral lower extremity strength 5/5, no facial droop, normal speech, no tremor, no sensory deficit laboratory and microbiology Laboratory Tests 07/24/24 07:40 Test 07/24/24 07:40 Range/Units Serum Glucose 96 74-106 mg/dL Microbiology Date/Time Source Procedure Growth Status 07/22/24 17:50 Other Drainage Gram Stain - Preliminary Resulted 07/22/24 17:50 Other Drainage Aerobic Culture - Preliminary Resulted 07/18/24 11:20 Aspirate Gram Stain - Final Complete 07/18/24 11:20 Aspirate Body Fluid Culture - Final Complete 07/16/24 06:56 Stool Stool Culture - Final Complete 07/16/24 06:56 Stool Shiga Toxin I & II - Final Complete 07/16/24 06:56 Stool Clostridium difficile Toxin Assay - Final Complete 07/14/24 17:22 Voided Urine Urine Culture - Final Complete 07/14/24 10:17 Blood Blood Culture - Final NO GROWTH AFTER 5 DAYS OF INCUBATION. Complete Labs and/or images reviewed: Labs reviewed by me, Image(s) reviewed by me Problem List/Assessment/Plan Problem List/Assessment/Plan #Sepsis secondary to ?liver abscess #Liver mass #Possible Pyogenic liver abscesses #Melena #Anemia secondary to above #Transaminitis secondary to liver abscess versus alcoholic liver disease #CLINT, likely vasomotor mediated resolved #Hyponatremia #Chronic alcoholism #Cannabis dependence #Morbid obesity Regular diet IV fluid Meropenem IV CT scan showed Multiple ill-defined hypodense lesions of the liver. Patient refused MRI CT abdomen pelvis triple phase with IV contrast showed large multi-septated lesion in the right hepatic lobe measuring up to 13.7 cm, satellite lesions adjacent, additional multi septated lesion in the anterior right hepatic lobe measuring up to 4.8 cm Tumor markers negative Stool occult blood negative, few stool white cells Stool culture negative for Shiga toxin, C diff, Campylobacter GI on board Interventional Radiology consulted for drainage/IR guided liver biopsy: Patient underwent liver abscess drainage on 07/18/2024 Awaiting fluid analysis results, preliminary culture negative consulted infectious disease ; currently on IV ceftriaxone Acetaminophen as needed for fever Scheduled for repeat CT scan with IV contrast on 07/25/2024 Plan discussed with patient for more than 25 minutes, full code Plan discussed with Dr. Mcdonald Plan discussed with: Patient, Spouse Dietary Evaluation Review Comments: Maintain adequate oral intakes >75% of meals Expected Outcomes/Goals: Improved nutrition related-lab values, avoidance of alcohol Protein Calorie Malnutrition: N/A Date of Service: Jul 24, 2024 Billing Provider: EDWARD MCDONALD MD Common Visit Codes: [id number] INP/OBS CARE(HIGH) ANGUS GILLESPIE RESIDENT Jul 24, 2024 09:34 EDWARD MCDONALD MD Jul 24, 2024 22:07
--- NOTE | 2024-07-24 12:03 | DVH ---
CHEST RADIOGRAPH Indication: PNA Technique: Single frontal view of the chest was obtained COMPARISON: None FINDINGS: Lines and Tubes: None Lungs: Right lower lobe airspace disease. Pleura: No effusion. No pneumothorax. Cardiomediastinal contours: Unremarkable Bones: Unremarkable IMPRESSION: Right lower lobe airspace disease.
--- NOTE | 2024-07-24 14:11 | DVHPN2 ---
Progress Note Date Seen: Jul 24, 2024 Resident Creating Document: JOON MOLINA RESIDENT Has the PT tested + for MRSA If YES, has PT been informed?: No Medical Necessity Reason Pt with a Central, PICC or Fol: No Subjective Review of Systems Patient seen and examined at bedside. No new complaints. Continue getting drained via catheter. No complaints abdominal pain. Objective vital signs Vital Sign Date Time Temp Pulse Resp B/P (MAP) Pulse Ox O2 Delivery O2 Flow Rate FiO2 07/24/24 09:00 98.1 80 18 113/72 (86) 93 98.1 07/24/24 08:00 Room Air* 0 21 Total Intake and Output 07/23/24 07/23/24 07/24/24 15:00 23:00 07:00 Intake Total 600 ml 1200 ml Output Total 1450 ml Balance 600 ml -250 ml medications Current Medications Medications Dose Ordered Sig/Herlinda Route Start Time Stop Time Status Last Admin Dose Admin Pantoprazole Sodium 40 mg DAILY IV 07/15/24 10:00 07/24/24 10:44 40 MG Acetaminophen 1,000 mg TID PO 07/16/24 22:00 UNV Acetaminophen 650 mg Q8HR PO 07/17/24 14:00 UNV Acetaminophen 625 mg Q6HP PRN PO 07/22/24 13:15 07/23/24 00:53 625 MG Ceftriaxone Sodium/Dextrose 50 ml @ 50 mls/hr DAILY IV 07/23/24 10:00 07/24/24 10:44 50 MLS/HR Examination General Appearance: Cooperative. Well developed. Well nourished. NAD Head Exam: Normal inspection Neck Exam: Normal inspection. Non-tender. Normal alignment Pulmonary/Respiratory: Chest non-tender. Clear bilateral breath sounds Cardiovascular/Chest: Regular rate and rhythm. No murmurs. No JVD. Peripheral Pulses: 2+ Radial (R). 2+ Radial (L). 2+ Pedal (R). 2+ Pedal (L) Abdominal Exam: Normal bowel sounds. Soft. Nontender. No hepatospenomegaly. No masses, presence of percutaneous drainage over right upper quadrant abdominal region. Ankle Exam: Negative ankle edema Lower extremities: Negative lower extremity edema Neuro/Mental Status: A&O x4. Coherent Thoughts/Psych: Normal thought pattern. Appropriate mood and affect. Good judgement and insight Appearance: In no acute distress Skin Exam: Normal inspection. Normal color. Warm. Dry laboratory and microbiology Laboratory Tests 07/24/24 07:40 Test 07/24/24 07:40 Range/Units Serum Glucose 96 74-106 mg/dL Microbiology Date/Time Source Procedure Growth Status 07/22/24 17:50 Other Drainage Gram Stain - Final Resulted 07/22/24 17:50 Other Drainage Aerobic Culture - Preliminary Resulted 07/18/24 11:20 Aspirate Gram Stain - Final Complete 07/18/24 11:20 Aspirate Body Fluid Culture - Final Complete 07/16/24 06:56 Stool Stool Culture - Final Complete 07/16/24 06:56 Stool Shiga Toxin I & II - Final Complete 07/16/24 06:56 Stool Clostridium difficile Toxin Assay - Final Complete 07/14/24 17:22 Voided Urine Urine Culture - Final Complete 07/14/24 10:17 Blood Blood Culture - Final NO GROWTH AFTER 5 DAYS OF INCUBATION. Complete Problem List/Assessment/Plan Problem List/Assessment/Plan Multiloculated liver abscess Sepsis due to above Liver mass can not be ruled out pending biopsy results Transaminitis likely due to liver abscess CLINT likely hemodynamically mediated Chronic alcoholism Morbid obesity Stool occult negative, no melena. Plan/recommendation Dr Sal -plan for repeat CT abdominal pelvis for evaluation of liver abscess tomorrow, to assess status of multi loculated liver abscess. -patient will need GI clinic follow-up for management of percutaneous drainage. Recommend ID consultation for antibiotics and follow up in outpatient setting for continuous imaging monitoring of liver abscess. Patient will need at least 4-6 weeks of antibiotic. -underwent CT-guided percutaneous drainage of liver abscess, continued to get drainage via catheter. Culture still pending. -continue Protonix 40 mg, can transition to oral. -pending biopsy results and pending cytology , culture, Gram stain of purulent drainage. -stool study negative for occult, she can toxin, C diff. hepatitis panel negative. -continue IV fluid hydration -continue to monitor liver function tests -advanced diet as per toleration -we will continue to monitor this patient. Plan discussed with: Patient, Other (RN) My Orders My Orders Orders - JOON MOLINA Procedure Category Date Status Time Chest Xray 1 View XY 07/24/24 Resulted 09:25 Dietary Evaluation Review Comments: Maintain adequate oral intakes >75% of meals Expected Outcomes/Goals: Improved nutrition related-lab values, avoidance of alcohol Protein Calorie Malnutrition: N/A JOON MOLINA RESIDENT Jul 24, 2024 14:11
--- NOTE | 2024-07-24 20:22 | DVHINCON2 ---
Date of service: Jul 22, 2024 Family History: Patient reports no known family medical history. Allergies: Coded Allergies: NO KNOWN ALLERGIES (Unverified , 07/14/24) Vital Signs Vital Signs Date Time Temp Pulse Resp B/P (MAP) Pulse Ox O2 Delivery O2 Flow Rate FiO2 07/24/24 17:00 99.0 94 18 117/77 (90) 95 99.0 07/24/24 08:00 Room Air* 0 21 Labs/Diagnostic Data Labs Test 07/24/24 07:40 07/16/24 06:56 07/15/24 23:21 07/15/24 11:54 Range/Units White Blood Count 7.7 4.4-10.8 10^3/uL Red Blood Count 3.59 L 4.5-5.90 10^6/uL Hemoglobin 10.8 L 13.5-17.5 g/dL Hematocrit 32.5 L 41.0-53.0 % Mean Corpuscular Volume 90.5 80.0-100.0 fL Mean Corpuscular Hemoglobin 30.1 28.0-32.0 pg Mean Corpuscular Hemoglobin Concent 33.2 32.0-36.0 g/dL Red Cell Distribution Width 14.0 11.8-14.3 % Platelet Count 383 140-450 10^3/uL Mean Platelet Volume 6.5 L 6.9-10.8 fL Neutrophils (%) (Auto) 61.8 37.0-80.0 % Lymphocytes (%) (Auto) 23.3 10.0-50.0 % Monocytes (%) (Auto) 12.5 H 0.0-12.0 % Eosinophils (%) (Auto) 1.5 0.0-7.0 % Basophils (%) (Auto) 0.9 0.0-2.0 % Neutrophils # (Auto) 4.8 1.6-8.6 10 ^3/uL Lymphocytes # (Auto) 1.8 0.4-5.4 10 ^3/uL Monocytes # (Auto) 1.0 0-1.3 10 ^3/uL Eosinophils # (Auto) 0.1 0-0.8 10 ^3/uL Basophils # (Auto) 0.1 0-0.2 10 ^3/uL Nucleated Red Blood Cells 0.0 % Sodium Level 137 136-145 mmol/L Potassium Level 4.2 3.5-5.1 mmol/L Chloride Level 102 98-107 mmol/L Carbon Dioxide Level 26 20-31 mmol/L Anion Gap 9 5-15 Blood Urea Nitrogen 8 L 9-23 mg/dL Creatinine 0.72 0.700-1.30 mg/dL Glomerular Filtration Rate Calc 120 >90 mL/min BUN/Creatinine Ratio 11.1 10.0-20.0 Serum Glucose 96 74-106 mg/dL Calcium Level 9.2 8.7-10.4 mg/dL Phosphorus Level 4.0 2.4-5.1 mg/dL Magnesium Level 1.7 1.6-2.6 mg/dL Total Bilirubin 0.6 0.2-1.0 mg/dL Aspartate Amino Transferase (AST) 86 H 13-40 U/L Alanine Aminotransferase (ALT) 154 H 7-40 U/L Alkaline Phosphatase 164 H 46-116 U/L C-Reactive Protein High Sensitivity 4.47 H <1.0 mg/dL Total Protein 7.8 5.7-8.2 g/dL Albumin 3.8 3.2-4.8 g/dL Stool for White Cells Few Influenza Type A Antigen Negative Negative Influenza Type B Antigen Negative Negative SARS-CoV-2 Antigen (Rapid) Negative NEGATIVE Tumor Marker Alpha Fetoprotein <1.8 0.0-6.9 ng/mL Carcinoembryonic Antigen < 0.50 <=5.0 ng/mL CA 19-9 Antigen <2 0-35 U/mL Plasma/Serum Blood Alcohol < 3.0 <10 mg/dL Hepatitis A IgM Antibody Negative Hepatitis B Surface Antigen Negative Negative Hepatitis B Core IgM Antibody Negative Negative Hepatitis C Antibody Negative Negative Test 07/15/24 10:40 07/15/24 07:28 07/14/24 17:42 07/14/24 17:22 Range/Units Prothrombin Time 15.0 H 9.3-11.8 sec Prothrombin Time INR 1.47 H 0.9-1.15 Activated Partial Thromboplast Time 33.0 24.5-34.5 SEC Direct Bilirubin 1.3 H <0.3 mg/dL Lactate Dehydrogenase 419 H 120-246 U/L Stool Occult Blood Negative Negative Stool Occult Blood Sample #3 Negative Urine Color Yellow Yellow Urine Clarity Clear Clear Urine pH 6.0 5.0-9.0 Urine Specific Lolo 1.021 1.001-1.035 Urine Protein 1+ H Negative Urine Ketones Negative Negative Urine Blood Trace H Negative /uL Urine Nitrite Negative Negative Urine Bilirubin 1+ Negative Urine Urobilinogen 3 H Negative mg/dL Urine Leukocyte Esterase Negative Negative /uL Urine RBC 1 0 - 3 /hpf Urine Microscopic WBC 3 0-3 /HPF Urine Squamous Epithelial Cells Few <5 /hpf Urine Amorphous Crystals Few None Seen /hpf Urine Bacteria Few H None Seen /hpf Urine Hyaline Casts Few 0 - 2 /lpf Urine Glucose Normal Normal mg/dL Urine Opiates Screen Neg NEGATIVE Urine Fentanyl Screen Neg NEGATIVE Urine Barbiturates Screen Neg NEGATIVE Urine Phencyclidine Screen Neg NEGATIVE Urine Amphetamines Screen Neg NEGATIVE Urine Benzodiazepines Screen Neg NEGATIVE Urine Cocaine Screen Neg NEGATIVE Urine Cannabinoids Screen Pos NEGATIVE Test 07/14/24 08:43 Range/Units Erythrocyte Sedimentation Rate 109 H 0-20 mm/hr Lactic Acid Level 1.2 0.4-2.0 mmol/L Lipase 25 12-53 U/L Microbiology Date/Time Source Procedure Growth Status 07/22/24 17:50 Other Drainage Gram Stain - Final Resulted 07/22/24 17:50 Other Drainage Aerobic Culture - Preliminary Resulted 07/18/24 11:20 Aspirate Gram Stain - Final Complete 07/18/24 11:20 Aspirate Body Fluid Culture - Final Complete 07/16/24 06:56 Stool Stool Culture - Final Complete 07/16/24 06:56 Stool Shiga Toxin I & II - Final Complete 07/16/24 06:56 Stool Clostridium difficile Toxin Assay - Final Complete 07/14/24 17:22 Voided Urine Urine Culture - Final Complete 07/14/24 10:17 Blood Blood Culture - Final NO GROWTH AFTER 5 DAYS OF INCUBATION. Complete Problems(with codes): (1) Liver masses (2) Liver abscess (3) Abnormal finding on GI tract imaging (4) Sepsis, unspecified organism (5) Nonspecific colitis Plan/Recommendation ASSESSMENT AND PLAN: ID Problem List: - Sepsis - Hepatic abscess - Alcohol abuse - Tobacco use - Marijuana use - Diarrhea - Shortness of breath - Morbid obesity Assessment This is a 38 y.o. male with a past medical history of morbid obesity, alcohol abuse, tobacco use, and marijuana use, who presents with acute abdominal pain, diarrhea with runny black stools, decreased appetite, dysuria, fevers, and night sweats for the last 8 days. He also reports shortness of breath over the last several days. Denies any recent sick contacts or right upper quadrant pain. On admission, vital signs notable for fever up to 102.9F, tachycardia with pulse of 115 bpm, and hypertension with BP 171/87 mmHg. Physical exam revealed mild tenderness in the right upper quadrant on deep palpation. Laboratory data significant for leukocytosis with WBC count of 18.6 K/uL, which has decreased to 12.8 K/uL post-drainage. Platelet count elevated from 362 K/uL on admission to 449 K/uL currently. Sodium 133 mmol/L, BUN 13 mg/dL, creatinine 0.78 mg/dL. Imaging studies: - CT abdomen/pelvis revealed multiple ill-defined hypodense lesions of the liver. - Liver ultrasound showed hepatic steatosis with the liver measuring 23 cm and a 12 cm heterogeneous mass in the right hepatic lobe. - Chest X-ray showed right lower lobar space disease. He underwent interventional radiology-guided drainage of the hepatic abscess on the , with placement of an 8.5 Divehi drainage catheter. Approximately 75 cc of purulent material was aspirated. Blood cultures and aspirate cultures are pending; no growth to date. Patient continues to have fevers and runny stools but denies abdominal pain currently. Plan: - on the differential is Klebsiella (from gut translocation from acute diarrheal illness or pneumonia) or other aspirated organism (pneumonia) via hematogenous spread. echinococcus would also be a consideration. - Continue ceftriaxone 2 g IV daily to cover hepatic abscess; discontinue Zosyn. - Monitor for culture results from blood and abscess drainage. - Consider HIV screening due to risk factors associated with substance abuse. - Obtain CT chest to evaluate for possible aspiration pneumonia contributing to hepatic abscess. - Encourage smoking cessation and alcohol abstinence; consult substance abuse services. - Monitor vital signs and labs closely; assess for resolution of fevers and improvement in leukocytosis. - Provide supportive care for symptoms (e.g., antipyretics for fever). Isolation Precautions: Standard Assessment and plan were discussed with the patient as written above. Plan is subject to change pending incorporation of new incoming information/diag nostics. Updates may be added as addendum at the bottom (OR TOP) of this note. Thank you for the interesting consult. ID will continue to follow. Please contact Infectious Disease for any questions or concerns. Marybeth Briones M.D. [facility]: ? History: The patient's chart and medications were reviewed in detail, and the patient was seen and examined. History obtained from: patient James is a 38 y.o. male with a past medical history significant for morbid obesity, alcohol abuse, tobacco use, and marijuana use, who presents with acute abdominal pain, diarrhea with runny black stools, decreased appetite, dysuria, fevers, and night sweats for the last 8 days. He also reports shortness of breath over the last several days. Denies any recent sick contacts, right upper quadrant pain, recent surgeries, travel history, beach contacts, or open wounds on the skin. Lives with family. Review of Systems: A complete 10-system review of systems was completed and negative except as noted in the HPI or here. ROS: - CONSTITUTIONAL: Reports fevers and night sweats. Denies weight loss. - HEENT: Denies changes in vision and hearing. - RESPIRATORY: Reports shortness of breath. Denies cough. - CV: Denies palpitations and chest pain. - GI: Reports abdominal pain, diarrhea with runny black stools, decreased appet ite. - : Reports dysuria. - MSK: Denies myalgia and joint pain. - SKIN: Denies rash and pruritus. No open wounds. - NEUROLOGICAL: Denies headache and syncope. - PSYCHIATRIC: Denies recent changes in mood, anxiety, and depression. Past Medical History: Diagnosis Date Morbid obesity Alcohol abuse Tobacco use Marijuana use Past Surgical History: History reviewed. No pertinent surgical history. Home Medications: Medications prior to admission are not specified. Allergies: Allergies No known allergies Family History: Family history not provided. Social History: Socioeconomic History Marital status: Not specified Lives with family Tobacco Use Smoking status: Current smoker, 1 pack per day; history of heavier usage (several packs per day). Substance and Sexual Activity Alcohol use: Heavy alcohol consumption (several beers plus six shots of vodka nightly). Drug use: Marijuana use. Sexual activity: Not specified. Other Topics of Concern No recent travel history. No recent beach contacts. No open wounds on skin. Social Determinants of Health Financial Resource Strain: Not assessed. Objective: Vital Signs on Arrival: Temp: 97.9 F?BP: 171/87 mmHg?Pulse: 115 bpm?Resp: 18?SpO2: 95% on room air Most Recent Vital Signs: Temp: Not provided?BP: Not provided?Pulse: Not provided?Resp: Not provided?SpO2: Not provided Admission Weight: Not provided?BMI: Not calculated. Physical Exam: General:?Morbidly obese male in no acute distress. Neck:?Supple. No masses. HEENT:?PERRL. Normal lids and conjunctiva. Moist mucous membranes. Oropharynx without lesions, exudates, or excessive erythema. Normal appearance of the ext ernal aspects of the nose and ears. Heart:?Tachycardic with regular rhythm. No murmurs. No lower extremity edema. Lungs:?Normal respiratory effort. Clear to auscultation bilaterally. No wheezes. No crackles. Abdomen:?Soft, mildly tender in right upper quadrant on deep palpation. Non- distended. No masses or abdominal hernia. Msk:?No digital cyanosis. Normal strength and tone in all four limbs. Skin:?Warm and dry, no rashes. No open wounds. Neuro:?Alert. No facial droop or slurred speech. Extraocular movements intact. Sensation intact to soft touch in all four limbs. Psych:?Appropriate mood. Full affect. Oriented to person, place, time, and situation. Lines: Active Lines Peripheral IV Line?07/24/2024?Left Antecubital Fossa?18 gauge?<1 day Diagnostic Studies: Available diagnostic studies were reviewed personally. Significant relevant results and findings are outlined below or addressed in the Assessment and Plan above. Pertinent Imaging: CT Abdomen and Pelvis ?Impression: - Multiple ill-defined hypodense lesions of the liver; further characterization recommended with MRI. - No obstructive uropathy. Ultrasound Liver ?Impression: - Hepatic steatosis. - Liver measuring 23 cm. - 12 cm heterogeneous mass in the right hepatic lobe. Chest X-ray ?Impression: - Right lower lobar space disease. Pertinent Laboratory Results: - WBC count: - Admission: 18.6 K/uL - Post-drainage: Decreased to 12.8 K/uL - Hemoglobin: 11.2 g/dL - Platelet count: - Admission: 362 K/uL - Increased to 449 K/uL - Sodium: 133 mmol/L - BUN: 13 mg/dL - Creatinine: 0.78 mg/dL - Blood cultures: No growth to date. - Stool studies: - Stool culture shows normal enteric semaj. - Clostridioides difficile toxin: Negative. Plan discussed with: Patient MARYBETH BRIONES MD Jul 24, 2024 20:22
--- NOTE | 2024-07-24 21:03 | DVHPN2 ---
Consult Progress Note Date Seen: Jul 24, 2024 Subjective Patient reports: Other (no fevers in last 24 hours , feeling well , no output from drain ) Objective vital signs Vital Sign Date Time Temp Pulse Resp B/P (MAP) Pulse Ox O2 Delivery O2 Flow Rate FiO2 07/24/24 17:00 99.0 94 18 117/77 (90) 95 99.0 07/24/24 08:00 Room Air* 0 21 Total Intake and Output 07/23/24 07/23/24 07/24/24 15:00 23:00 07:00 Intake Total 600 ml 1200 ml Output Total 1450 ml Balance 600 ml -250 ml medications Current Medications Medications Dose Ordered Sig/Herlinda Route Start Time Stop Time Status Last Admin Dose Admin Pantoprazole Sodium 40 mg DAILY IV 07/15/24 10:00 07/24/24 10:44 40 MG Acetaminophen 1,000 mg TID PO 07/16/24 22:00 UNV Acetaminophen 650 mg Q8HR PO 07/17/24 14:00 UNV Acetaminophen 625 mg Q6HP PRN PO 07/22/24 13:15 07/23/24 00:53 625 MG Ceftriaxone Sodium/Dextrose 50 ml @ 50 mls/hr DAILY IV 07/23/24 10:00 07/24/24 10:44 50 MLS/HR Physical Exam: General:?Morbidly obese male in no acute distress. Neck:?Supple. No masses. HEENT:?PERRL. Normal lids and conjunctiva. Moist mucous membranes. Oropharynx without lesions, exudates, or excessive erythema. Normal appearance of the external aspects of the nose and ears. Heart:?Tachycardic with regular rhythm. No murmurs. No lower extremity edema. Lungs:?Normal respiratory effort. Clear to auscultation bilaterally. No wheezes. No crackles. Abdomen:?Soft, mildly tender in right upper quadrant on deep palpation. Non- distended. No masses or abdominal hernia. Msk:?No digital cyanosis. Normal strength and tone in all four limbs. Skin:?Warm and dry, no rashes. No open wounds. Neuro:?Alert. No facial droop or slurred speech. Extraocular movements intact. Sensation intact to soft touch in all four limbs. Psych:?Appropriate mood. Full affect. Oriented to person, place, time, and situation. laboratory and microbiology Laboratory Tests 07/24/24 07:40 Test 07/24/24 07:40 Range/Units Serum Glucose 96 74-106 mg/dL Problem List/Assessment/Plan Problems(with codes): (1) Nonspecific colitis (2) Sepsis, unspecified organism (3) Abnormal finding on GI tract imaging (4) Liver masses (5) Liver abscess Problem List/Assessment/Plan ID Problem List: - Sepsis - Hepatic abscess - Alcohol abuse - Tobacco use - Marijuana use - Diarrhea - Shortness of breath - Morbid obesity Assessment This is a 38 y.o. male with a past medical history of morbid obesity, alcohol abuse, tobacco use, and marijuana use, who presents with acute abdominal pain, diarrhea with runny black stools, decreased appetite, dysuria, fevers, and night sweats for the last 8 days. He also reports shortness of breath over the last several days. Denies any recent sick contacts or right upper quadrant pain. On admission, vital signs notable for fever up to 102.9F, tachycardia with pulse of 115 bpm, and hypertension with BP 171/87 mmHg. Physical exam revealed mild tenderness in the right upper quadrant on deep palpation. Laboratory data significant for leukocytosis with WBC count of 18.6 K/uL, which has decreased to 12.8 K/uL post-drainage. Platelet count elevated from 362 K/uL on admission to 449 K/uL currently. Sodium 133 mmol/L, BUN 13 mg/dL, creatinine 0.78 mg/dL. Imaging studies: - CT abdomen/pelvis revealed multiple ill-defined hypodense lesions of the liver. - Liver ultrasound showed hepatic steatosis with the liver measuring 23 cm and a 12 cm heterogeneous mass in the right hepatic lobe. - Chest X-ray showed right lower lobar space disease. He underwent interventional radiology-guided drainage of the hepatic abscess on the , with placement of an 8.5 Panamanian drainage catheter. Approximately 75 cc of purulent material was aspirated. Blood cultures and aspirate cultures are pending; no growth to date. Patient continues to have fevers and runny stools but denies abdominal pain currently. 07/23: whitecount is 8.9 and improved 07/24: whitecount is 7.7 , fluid cultures from drain show no organisms Plan: - wound send for canococcus antibodies - recommend ceftriaxone IV for at least 4 weeks - patient will need a follow up Ct abdomen and pelvis to confirm hepatic abscess - follow up with infectious disease in 4 weeks to see if alterations to antibiotics need to be made - follow up with IR for drain management - on the differential is Klebsiella (from gut translocation from acute diarrheal illness or pneumonia) or other aspirated organism (pneumonia) via hematogenous spread. echinococcus would also be a consideration. - Continue ceftriaxone 2 g IV daily to cover hepatic abscess; discontinue Zosyn. - Monitor for culture results from blood and abscess drainage. - Consider HIV screening due to risk factors associated with substance abuse. - Obtain CT chest to evaluate for possible aspiration pneumonia contributing to hepatic abscess. - Encourage smoking cessation and alcohol abstinence; consult substance abuse services. - Monitor vital signs and labs closely; assess for resolution of fevers and improvement in leukocytosis. - Provide supportive care for symptoms (e.g., antipyretics for fever). Isolation Precautions: Standard Plan discussed with: Other Dietary Evaluation Review Comments: Maintain adequate oral intakes >75% of meals Expected Outcomes/Goals: Improved nutrition related-lab values, avoidance of alcohol Protein Calorie Malnutrition: N/A MARYBETH GONZALEZ MD Jul 24, 2024 21:03
[2024-07-25] VITALS (7 sets, daily range): BP systolic 113–125; BP diastolic 63–84; PULSE 79–101; RESP 16–20; TEMP 98.4–99.2; O2SAT 94–98
[2024-07-25 07:55] LABS: Basophils # (auto) 0.1 10 ^3/uL (0-0.2); Eosinophils # (auto) 0.1 10 ^3/uL (0-0.8); Hematocrit 32.1 % (41.0-53.0); Hemoglobin 10.7 g/dL (13.5-17.5); Lymphocytes # (auto) 1.8 10 ^3/uL (0.4-5.4); Lymphocytes % (auto) 25.4 % (10.0-50.0); Mean Corpuscular Hemoglobin 30.1 pg (28.0-32.0); Mean Corpuscular Hgb Conc. 33.3 g/dL (32.0-36.0); Mean Corpuscular Volume 90.4 fL (80.0-100.0); Monocytes # (auto) 0.8 10 ^3/uL (0-1.3); Neutrophils # (auto) 4.3 10 ^3/uL (1.6-8.6); Neutrophils % (auto) 60.6 % (37.0-80.0); Nucleated Red Blood Cells % 0.1 %; Platelet Count (auto) 381 10^3/uL (140-450); Red Blood Cells 3.55 10^6/uL (4.5-5.90); Red Cell Distribution Width 13.7 % (11.8-14.3); White Blood Cell 7.1 10^3/uL (4.4-10.8)
[2024-07-25 08:06] LABS: Anion Gap 9 (5-15); BUN/Creatinine Ratio 13.7 (10.0-20.0); Blood Urea Nitrogen 10 mg/dL (9-23); Calcium 9.1 mg/dL (8.7-10.4); Carbon Dioxide 26 mmol/L (20-31); Chloride 101 mmol/L (98-107)
[2024-07-25 08:07] LABS: Albumin 3.7 g/dL (3.2-4.8)
[2024-07-25 08:08] LABS: Total Protein 7.7 g/dL (5.7-8.2)
[2024-07-25 08:16] LABS: Glucose 111 mg/dL (74-106); Sodium 136 mmol/L (136-145)
[2024-07-25 08:17] LABS: Alanine Aminotransferase 148 U/L (7-40); Alkaline Phosphatase 151 U/L (46-116); Aspartate Aminotransferase 75 U/L (13-40); Bilirubin, Total 0.6 mg/dL (0.2-1.0)
--- NOTE | 2024-07-25 11:04 | DVHPNRES ---
Progress Note Date Seen: Jul 25, 2024 Resident Creating Document: ANGUS GILLESPIE RESIDENT Has the PT tested + for MRSA If YES, has PT been informed?: No Medical Necessity Reason Pt with a Central, PICC or Fol: No Subjective Review of Systems Patient reported pain in the right upper quadrant, moderate in intensity 5/10 Reports passing flatus and bowel movement, no melena or hematochezia Patient was noted to have fever 100 F following which acetaminophen 650 mg was given, cooling measures Patient was advised to get a MRI abdomen done for better imaging of the liver abscess but he denied as he can not tolerate being in the MRI machine for long. CT abdomen pelvis with triple phase contrast was done which showed large multi- septated lesion in the right hepatic lobe measuring up to 13.7 cm. Small satellite lesions directly adjacent to this, as well as an additional mellitus update lesion in the anterior right hepatic lobe measuring up to 4.8 cm. Findings are favored to represent hepatic abscesses: However, a cystic neoplasm can not be entirely excluded by imaging. 07/18/2024: Patient underwent CT-guided percutaneous drainage of liver abscess along with insertion of catheter with drainage of 400 mL serosanguineous fluid 07/19/2024: Bag replaced, patient had a further drainage of 100 mL serosanguineous fluid 07/20/2024: Minimal serosanguineous reddish-brown drainage in the bag 07/21/2019 5:1 50 mL serosanguineous, brownish drainage in the bag noted Patient spiked a fever overnight, consulted Infectious Disease; discontinued meropenem and metronidazole, started on IV ceftriaxone 2g daily Objective vital signs Vital Sign Date Time Temp Pulse Resp B/P (MAP) Pulse Ox O2 Delivery O2 Flow Rate FiO2 07/25/24 08:33 99.1 89 16 119/73 (88) 97 99.1 07/25/24 08:30 Room Air* 0 21 Total Intake and Output 07/24/24 07/24/24 07/25/24 15:00 23:00 07:00 Intake Total 700 ml 1025 ml Balance 700 ml 1025 ml medications Current Medications Medications Dose Ordered Sig/Herlinda Route Start Time Stop Time Status Last Admin Dose Admin Pantoprazole Sodium 40 mg DAILY IV 07/15/24 10:00 07/25/24 09:41 40 MG Acetaminophen 1,000 mg TID PO 07/16/24 22:00 UNV Acetaminophen 650 mg Q8HR PO 07/17/24 14:00 UNV Acetaminophen 625 mg Q6HP PRN PO 07/22/24 13:15 07/23/24 00:53 625 MG Ceftriaxone Sodium/Dextrose 50 ml @ 50 mls/hr DAILY IV 07/23/24 10:00 07/25/24 09:43 50 MLS/HR Examination Constitutional: Patient was alert and oriented to time, place and person. Patient reports improvement in right upper quadrant pain and fever since undergoing drainage of liver abscess. Gen - no pallor, mild scleral icterus, no cyanosis, no clubbing, no LAD, no edema . Skin - Patients skin is warm and dry. Noted to have a new onset fluid-filled blister a prox 1 cm by 2 cm near the right tube site HEENT - normocephalic, atraumatic, dry mucous membranes. Neck - full ROM, no LAD, no JVD Pulmonary - B/L vesicular breath sounds. no crackles , no wheezing cardiovascular - normal S1,S2 heard. no murmurs heard. peripheral pulses normal radial 2+, pedal 2+. GI - soft abdomen with tenderness to palpation in the right upper quadrant . no hepatospleenomegaly. Bowel sounds normoactive Neurological - Bilateral upper extremity strength 5/5, bilateral lower extremity strength 5/5, no facial droop, normal speech, no tremor, no sensory deficit laboratory and microbiology Laboratory Tests 07/25/24 07:20 Test 07/25/24 07:20 Range/Units Serum Glucose 111 H 74-106 mg/dL Microbiology Date/Time Source Procedure Growth Status 07/23/24 21:15 Blood Blood Culture - Preliminary NO GROWTH AFTER 24 HOURS OF INCUBATION. Resulted 07/22/24 17:50 Other Drainage Gram Stain - Final Resulted 07/22/24 17:50 Other Drainage Aerobic Culture - Preliminary Resulted 07/18/24 11:20 Aspirate Gram Stain - Final Complete 07/18/24 11:20 Aspirate Body Fluid Culture - Final Complete 07/16/24 06:56 Stool Stool Culture - Final Complete 07/16/24 06:56 Stool Shiga Toxin I & II - Final Complete 07/16/24 06:56 Stool Clostridium difficile Toxin Assay - Final Complete 07/14/24 17:22 Voided Urine Urine Culture - Final Complete Labs and/or images reviewed: Labs reviewed by me, Image(s) reviewed by me Problem List/Assessment/Plan Problem List/Assessment/Plan #Sepsis secondary to ?liver abscess #Liver mass #Possible Pyogenic liver abscesses #Melena #Anemia secondary to above #Transaminitis secondary to liver abscess versus alcoholic liver disease #CLINT, likely vasomotor mediated resolved #Hyponatremia #Chronic alcoholism #Cannabis dependence #Morbid obesity Regular diet IV fluid Meropenem IV CT scan showed Multiple ill-defined hypodense lesions of the liver. Patient refused MRI CT abdomen pelvis triple phase with IV contrast showed large multi-septated lesion in the right hepatic lobe measuring up to 13.7 cm, satellite lesions adjacent, additional multi septated lesion in the anterior right hepatic lobe measuring up to 4.8 cm Tumor markers negative Stool occult blood negative, few stool white cells Stool culture negative for Shiga toxin, C diff, Campylobacter GI on board Interventional Radiology consulted for drainage/IR guided liver biopsy: Patient underwent liver abscess drainage on 07/18/2024 Awaiting fluid analysis results, preliminary culture negative consulted infectious disease ; currently on IV ceftriaxone Acetaminophen as needed for fever Scheduled for repeat CT scan chest abdomen pelvis with IV contrast today Plan discussed with patient for more than 25 minutes, full code Plan discussed with Dr. Díaz Plan discussed with: Patient, Spouse, Other (RN) Dietary Evaluation Review Comments: Maintain adequate oral intakes >75% of meals Expected Outcomes/Goals: Improved nutrition related-lab values, avoidance of alcohol Protein Calorie Malnutrition: N/A Date of Service: Jul 25, 2024 Billing Provider: ELEAZAR DÍAZ MD Common Visit Codes: [id number] INP/OBS CARE(HIGH) ANGUS GILLESPIE Jul 25, 2024 11:04 ELEAZAR DÍAZ MD Jul 26, 2024 16:12
--- NOTE | 2024-07-25 15:25 | DVH ---
Exam: CT CT CHEST/AB/PL W CON- IV ONLY History: multiloculated liver abscess COMPARISON: CT CT AB PEL WITH IV CON ONLY on DOS: 07/17/24 Technique: Multidetector spiral CT of the abdomen and pelvis was performed from lung bases to pubic s ymphysis. Intravenous contrast was administered during this examination. Portal venous imaging was obtained. Axial, coronal and sagittal multiplanar reformats were performed by the technologist on a separate workstation. Radiation Dose : 1. Abdomen/Pelvis: CTDIvol 26.34mGy, DLP 2114.88 mGy*cm. CONTRAST: Type of contrast: Omnipaque 300 Contrast injected: 100 ml Contrast ingested: 0 ml Findings: Normal larynx. No central airway lesions. Mild right pleural effusion. Aorta and pulmonary arteries a re unremarkable. No obvious central pulmonary emboli. Atelectasis right lung base. No aortic aneurysm . No infiltrate in the left lung. Lung Bases: No acute or significant lung base finding. Normal heart size. No pleural or pericardial effusion. Liver: 5 [place] drainage catheter is seen in the right lobe of the liver posteriorly. Interval decrea se in the size of the right liver abscess. Air is seen within the lesion. Gallbladder and Biliary Tree: Unremarkable Spleen: Unremarkable Pancreas: The pancreas is normal in appearance without focal lesions or abnormal enhancement. Adrenal Glands: Unremarkable Kidneys: No hydronephrosis. Bladder: Unremarkable Bowel: The stomach is grossly normal in appearance. Small bowel and colon are normal in caliber and d istribution. The appendix is not visualized; however, no secondary findings of acute appendicitis id entified. Ascites: Absent Lymphadenopathy: No mesenteric, retroperitoneal or periportal lymphadenopathy. Abdominal Wall and Mesentery: Unremarkable. Vasculature: The visualized abdominal aorta is normal in size and caliber. Abdominal and pelvic vess els demonstrate normal enhancement. Pelvic Organs: Unremarkable Musculoskeletal: No aggressive focal bony lesions, acute fractures or dislocation. IMPRESSION: 1. Drainage catheter seen in the abscess in the posterior right lobe of the liver which is improved w hen compared to the prior CT study.Small right Pleural effusion. Atelectasis right lung base. No bowel obstruction. No pancreatitis. No obstructive uropathy. Radiation optimization: All CT scans at this facility use at least one of these dose optimization sandy hniques: automated exposure control mA and/or kV adjustment per patient size (includes targeted exam s where dose is matched to clinical indication) or iterative reconstruction.
--- NOTE | 2024-07-25 16:19 | DVHPN2 ---
Progress Note Date Seen: Jul 25, 2024 Resident Creating Document: JOON MOLINA RESIDENT Has the PT tested + for MRSA If YES, has PT been informed?: No Medical Necessity Reason Pt with a Central, PICC or Fol: No Subjective Review of Systems No new complaints. Draining 20-40 mL dark brown fluid from hepatic drain. No fever, nausea, vomiting, diarrhea. Objective vital signs Vital Sign Date Time Temp Pulse Resp B/P (MAP) Pulse Ox O2 Delivery O2 Flow Rate FiO2 07/25/24 12:41 98.9 79 18 121/73 (89) 96 98.9 07/25/24 08:30 Room Air* 0 21 Total Intake and Output 07/24/24 07/24/24 07/25/24 15:00 23:00 07:00 Intake Total 700 ml 1025 ml Balance 700 ml 1025 ml medications Current Medications Medications Dose Ordered Sig/Herlinda Route Start Time Stop Time Status Last Admin Dose Admin Pantoprazole Sodium 40 mg DAILY IV 07/15/24 10:00 07/25/24 09:41 40 MG Acetaminophen 1,000 mg TID PO 07/16/24 22:00 UNV Acetaminophen 650 mg Q8HR PO 07/17/24 14:00 UNV Acetaminophen 625 mg Q6HP PRN PO 07/22/24 13:15 07/23/24 00:53 625 MG Ceftriaxone Sodium/Dextrose 50 ml @ 50 mls/hr DAILY IV 07/23/24 10:00 07/25/24 09:43 50 MLS/HR Examination General Appearance: Cooperative. Well developed. Well nourished. NAD Head Exam: Normal inspection Neck Exam: Normal inspection. Non-tender. Normal alignment Pulmonary/Respiratory: Chest non-tender. Clear bilateral breath sounds Cardiovascular/Chest: Regular rate and rhythm. No murmurs. No JVD. Peripheral Pulses: 2+ Radial (R). 2+ Radial (L). 2+ Pedal (R). 2+ Pedal (L) Abdominal Exam: Normal bowel sounds. Soft. Nontender. No hepatospenomegaly. No masses, presence of percutaneous drainage over right upper quadrant abdominal region. Ankle Exam: Negative ankle edema Lower extremities: Negative lower extremity edema Neuro/Mental Status: A&O x4. Coherent Thoughts/Psych: Normal thought pattern. Appropriate mood and affect. Good judgement and insight Appearance: In no acute distress Skin Exam: Normal inspection. Normal color. Warm. Dry laboratory and microbiology Laboratory Tests 07/25/24 07:20 Test 07/25/24 07:20 Range/Units Serum Glucose 111 H 74-106 mg/dL Microbiology Date/Time Source Procedure Growth Status 07/23/24 21:15 Blood Blood Culture - Preliminary NO GROWTH AFTER 24 HOURS OF INCUBATION. Resulted 07/22/24 17:50 Other Drainage Gram Stain - Final Resulted 07/22/24 17:50 Other Drainage Aerobic Culture - Preliminary Resulted 07/18/24 11:20 Aspirate Gram Stain - Final Complete 07/18/24 11:20 Aspirate Body Fluid Culture - Final Complete 07/16/24 06:56 Stool Ova and Parasites - Final Complete 07/16/24 06:56 Stool - Final Complete 07/14/24 17:22 Voided Urine Urine Culture - Final Complete Problem List/Assessment/Plan Problem List/Assessment/Plan Multiloculated liver abscess Sepsis due to above Liver mass can not be ruled out pending biopsy results Transaminitis likely due to liver abscess CLINT likely hemodynamically mediated Chronic alcoholism Morbid obesity Stool occult negative, no melena. Plan/recommendation Dr Sal -Patient will need GI clinic follow-up for management of percutaneous drainage. Recommend ID consultation for antibiotics and follow up in outpatient setting for continuous imaging monitoring of liver abscess. Patient will need at least 4-6 weeks of antibiotic. -CT scan of abdomen and pelvis on 07/25/2024: Drainage catheter seen in the abscess in the posterior right lobe of the liver which is improved when compared to the prior CT study.Small right. Pleural effusion.Atelectasis right lung base. No bowel obstruction. No pancreatitis. No obstructive uropathy. -underwent CT-guided percutaneous drainage of liver abscess, continued to get drainage via catheter. Culture still pending. -Continue Protonix 40 mg, can transition to oral. -specimen culture from right liver abscess negative for bacterial culture and parasites. -stool study negative for occult, C diff. hepatitis panel negative. -continue IV fluid hydration -continue to monitor liver function tests -advanced diet as per toleration -we will continue to monitor this patient. Plan discussed with: Patient, Other (RN) Dietary Evaluation Review Comments: Maintain adequate oral intakes >75% of meals Expected Outcomes/Goals: Improved nutrition related-lab values, avoidance of alcohol Protein Calorie Malnutrition: N/A JOON MOLINA RESIDENT Jul 25, 2024 16:19
[2024-07-26] VITALS (7 sets, daily range): BP systolic 100–138; BP diastolic 66–90; PULSE 61–108; RESP 16–19; TEMP 97.4–98.4; O2SAT 92–98
--- NOTE | 2024-07-26 16:04 | DVHPN2 ---
Progress Note Date Seen: Jul 26, 2024 Resident Creating Document: JOON MOLINA RESIDENT Has the PT tested + for MRSA If YES, has PT been informed?: No Medical Necessity Reason Pt with a Central, PICC or Fol: No Subjective Review of Systems No new complaints. Draining 10 mL dark brown fluid from hepatic drain. No fever, nausea, vomiting, diarrhea. Objective vital signs Vital Sign Date Time Temp Pulse Resp B/P (MAP) Pulse Ox O2 Delivery O2 Flow Rate FiO2 07/26/24 13:17 97.4 105 18 138/90 (106) 98 97.4 07/26/24 08:00 Room Air* 0 21 Total Intake and Output 07/25/24 07/25/24 07/26/24 15:00 23:00 07:00 Intake Total 990 ml 950 ml Balance 990 ml 950 ml medications Current Medications Medications Dose Ordered Sig/Herlinda Route Start Time Stop Time Status Last Admin Dose Admin Pantoprazole Sodium 40 mg DAILY IV 07/15/24 10:00 07/26/24 09:35 40 MG Acetaminophen 1,000 mg TID PO 07/16/24 22:00 UNV Acetaminophen 650 mg Q8HR PO 07/17/24 14:00 UNV Acetaminophen 625 mg Q6HP PRN PO 07/22/24 13:15 07/23/24 00:53 625 MG Ceftriaxone Sodium/Dextrose 50 ml @ 50 mls/hr DAILY IV 07/23/24 10:00 07/26/24 09:35 50 MLS/HR Examination General Appearance: Cooperative. Well developed. Well nourished. NAD Head Exam: Normal inspection Neck Exam: Normal inspection. Non-tender. Normal alignment Pulmonary/Respiratory: Chest non-tender. Clear bilateral breath sounds Cardiovascular/Chest: Regular rate and rhythm. No murmurs. No JVD. Peripheral Pulses: 2+ Radial (R). 2+ Radial (L). 2+ Pedal (R). 2+ Pedal (L) Abdominal Exam: Normal bowel sounds. Soft. Nontender. No hepatospenomegaly. No masses, presence of percutaneous drainage over right upper quadrant abdominal region. Ankle Exam: Negative ankle edema Lower extremities: Negative lower extremity edema Neuro/Mental Status: A&O x4. Coherent Thoughts/Psych: Normal thought pattern. Appropriate mood and affect. Good judgement and insight Appearance: In no acute distress Skin Exam: Normal inspection. Normal color. Warm. Dry laboratory and microbiology Laboratory Tests 07/25/24 07:20 Test 07/25/24 07:20 Range/Units Serum Glucose 111 H 74-106 mg/dL Microbiology Date/Time Source Procedure Growth Status 07/23/24 21:15 Blood Blood Culture - Preliminary NO GROWTH AFTER 48 HOURS OF INCUBATION. Resulted 07/22/24 17:50 Other Drainage Gram Stain - Final Resulted 07/22/24 17:50 Other Drainage Aerobic Culture - Preliminary Resulted 07/18/24 11:20 Aspirate Gram Stain - Final Complete 07/18/24 11:20 Aspirate Body Fluid Culture - Final Complete 07/16/24 06:56 Stool Ova and Parasites - Final Complete 07/16/24 06:56 Stool - Final Complete 07/14/24 17:22 Voided Urine Urine Culture - Final Complete Problem List/Assessment/Plan Problem List/Assessment/Plan Multiloculated liver abscess Sepsis due to above Liver mass can not be ruled out pending biopsy results Transaminitis likely due to liver abscess CLINT likely hemodynamically mediated Chronic alcoholism Morbid obesity Stool occult negative, no melena. Plan/recommendation Dr Sal -patient will need follow up of percutaneous catheter management, as per radiologist Dr. Womack patient will benefit benefit from keeping catheter for at least one month in total, follow with ID for antibiotic options oral versus IV. Repeat CT scan significantly reduce the size of liver abscess. Given patient have just assigned his primary care physician, patient will need primary care physician establishment which is out of [facility]. Since his primary care physician is out of [facility], he will need referral to Dr. Sal GI clinic for percutaneous catheter management or referral to any other physician who will manage percutaneous catheter likely corn husk baler and intervention radiologist/surgeon. -antibiotic as per Infectious Disease -underwent CT-guided percutaneous drainage of liver abscess, continued to get drainage via catheter. Culture still pending. -continue Protonix 40 mg, can transition to oral. -liver abscess drainage cytology: Paucicellular specimen showing necrotic debris and few degenerative inflammatory cells -stool study negative for occult, she can toxin, C diff. hepatitis panel negative. -continue IV fluid hydration -continue to monitor liver function tests -advanced diet as per toleration -we will continue to monitor this patient. Plan discussed with: Patient, Other (RN) Dietary Evaluation Review Comments: Maintain adequate oral intakes >75% of meals Expected Outcomes/Goals: Improved nutrition related-lab values, avoidance of alcohol Protein Calorie Malnutrition: N/A JOON MOLINA RESIDENT Jul 26, 2024 16:04
--- NOTE | 2024-07-26 16:40 | DVHPNRES ---
Progress Note Date Seen: Jul 26, 2024 Resident Creating Document: ANGUS GILLESPIE RESIDENT Has the PT tested + for MRSA If YES, has PT been informed?: No Medical Necessity Reason Pt with a Central, PICC or Fol: No Subjective Review of Systems Patient reported pain in the right upper quadrant, moderate in intensity 5/10 Reports passing flatus and bowel movement, no melena or hematochezia Patient was noted to have fever 100 F following which acetaminophen 650 mg was given, cooling measures Patient was advised to get a MRI abdomen done for better imaging of the liver abscess but he denied as he can not tolerate being in the MRI machine for long. CT abdomen pelvis with triple phase contrast was done which showed large multi- septated lesion in the right hepatic lobe measuring up to 13.7 cm. Small satellite lesions directly adjacent to this, as well as an additional mellitus update lesion in the anterior right hepatic lobe measuring up to 4.8 cm. Findings are favored to represent hepatic abscesses: However, a cystic neoplasm can not be entirely excluded by imaging. 07/18/2024: Patient underwent CT-guided percutaneous drainage of liver abscess along with insertion of catheter with drainage of 400 mL serosanguineous fluid 07/19/2024: Bag replaced, patient had a further drainage of 100 mL serosanguineous fluid 07/20/2024: Minimal serosanguineous reddish-brown drainage in the bag 07/21/2019 5:1 50 mL serosanguineous, brownish drainage in the bag noted Patient spiked a fever overnight, consulted Infectious Disease; discontinued meropenem and metronidazole, started on IV ceftriaxone 2g daily Patient continues to have minimal reddish tinge discharge in the drainage tube, however, has remained without fevers for the last 3 days. Objective vital signs Vital Sign Date Time Temp Pulse Resp B/P (MAP) Pulse Ox O2 Delivery O2 Flow Rate FiO2 07/26/24 13:17 97.4 105 18 138/90 (106) 98 97.4 07/26/24 08:00 Room Air* 0 21 Total Intake and Output 07/25/24 07/25/24 07/26/24 15:00 23:00 07:00 Intake Total 990 ml 950 ml Balance 990 ml 950 ml medications Current Medications Medications Dose Ordered Sig/Herlinda Route Start Time Stop Time Status Last Admin Dose Admin Pantoprazole Sodium 40 mg DAILY IV 07/15/24 10:00 07/26/24 09:35 40 MG Acetaminophen 1,000 mg TID PO 07/16/24 22:00 UNV Acetaminophen 650 mg Q8HR PO 07/17/24 14:00 UNV Acetaminophen 625 mg Q6HP PRN PO 07/22/24 13:15 07/23/24 00:53 625 MG Ceftriaxone Sodium/Dextrose 50 ml @ 50 mls/hr DAILY IV 07/23/24 10:00 07/26/24 09:35 50 MLS/HR Examination Constitutional: Patient was alert and oriented to time, place and person. Patient reports improvement in right upper quadrant pain and fever since undergoing drainage of liver abscess. Gen - no pallor, mild scleral icterus, no cyanosis, no clubbing, no LAD, no edema . Skin - Patients skin is warm and dry. Noted to have a new onset fluid-filled blister a prox 1 cm by 2 cm near the right tube site HEENT - normocephalic, atraumatic, dry mucous membranes. Neck - full ROM, no LAD, no JVD Pulmonary - B/L vesicular breath sounds. no crackles , no wheezing cardiovascular - normal S1,S2 heard. no murmurs heard. peripheral pulses normal radial 2+, pedal 2+. GI - soft abdomen with tenderness to palpation in the right upper quadrant . no hepatospleenomegaly. Bowel sounds normoactive Neurological - Bilateral upper extremity strength 5/5, bilateral lower extremity strength 5/5, no facial droop, normal speech, no tremor, no sensory deficit laboratory and microbiology Laboratory Tests 07/25/24 07:20 Test 07/25/24 07:20 Range/Units Serum Glucose 111 H 74-106 mg/dL Microbiology Date/Time Source Procedure Growth Status 07/23/24 21:15 Blood Blood Culture - Preliminary NO GROWTH AFTER 48 HOURS OF INCUBATION. Resulted 07/22/24 17:50 Other Drainage Gram Stain - Final Resulted 07/22/24 17:50 Other Drainage Aerobic Culture - Preliminary Resulted 07/18/24 11:20 Aspirate Gram Stain - Final Complete 07/18/24 11:20 Aspirate Body Fluid Culture - Final Complete 07/16/24 06:56 Stool Ova and Parasites - Final Complete 07/16/24 06:56 Stool - Final Complete 07/14/24 17:22 Voided Urine Urine Culture - Final Complete Labs and/or images reviewed: Labs reviewed by me, Image(s) reviewed by me Problem List/Assessment/Plan Problem List/Assessment/Plan #Sepsis secondary to ?liver abscess #Liver mass #Possible Pyogenic liver abscesses #Melena #Anemia secondary to above #Transaminitis secondary to liver abscess versus alcoholic liver disease #CLINT, likely vasomotor mediated resolved #Hyponatremia #Chronic alcoholism #Cannabis dependence #Morbid obesity Regular diet IV fluid Meropenem IV CT scan showed Multiple ill-defined hypodense lesions of the liver. Patient refused MRI CT abdomen pelvis triple phase with IV contrast showed large multi-septated lesion in the right hepatic lobe measuring up to 13.7 cm, satellite lesions adjacent, additional multi septated lesion in the anterior right hepatic lobe measuring up to 4.8 cm Tumor markers negative Stool occult blood negative, few stool white cells Stool culture negative for Shiga toxin, C diff, Campylobacter GI on board Interventional Radiology consulted for drainage/IR guided liver biopsy: Patient underwent liver abscess drainage on 07/18/2024 Awaiting fluid analysis results, preliminary culture negative consulted infectious disease ; currently on IV ceftriaxone Acetaminophen as needed for fever repeat CT scan chest abdomen pelvis with IV contrast: Drainage catheter seen in the abscess in the posterior right lobe of the liver which is improved when compared to the prior CT study.Small right. Pleural effusion.Atelectasis right lung base.No bowel obstruction. No pancreatitis. No obstructive uropathy. - consulted social insurance analyst to arrange home health for IV antibiotics for 4 weeks, we will discharge after all arrangements have been made Per radiology, patient will continue to have the drainage tube for another 1 month. Plan discussed with patient for more than 25 minutes, full code Plan discussed with Dr. Begum Plan discussed with: Patient, Spouse, Other (RN) My Orders My Orders Orders - ANGUS GILLESPIE RESIDENT Procedure Category Date Status Time * Template Checker CONS 07/26/24 Transmitted Consult Dietary Evaluation Review Comments: Maintain adequate oral intakes >75% of meals Expected Outcomes/Goals: Improved nutrition related-lab values, avoidance of alcohol Protein Calorie Malnutrition: N/A ANGUS GILLESPIE RESIDENT Jul 26, 2024 16:40
[2024-07-27 01:00] VITALS: BP 96/46; PULSE 98; RESP 19; TEMP 98.3; O2SAT 92
[2024-07-27 05:00] VITALS: BP 110/58; PULSE 90; RESP 18; TEMP 98.3; O2SAT 98
[2024-07-27 08:00] VITALS: PULSE 86; RESP 20; O2SAT 97
[2024-07-27 08:13] LABS: Basophils # (auto) 0.1 10 ^3/uL (0-0.2); Basophils % (auto) 0.9 % (0.0-2.0); Eosinophils # (auto) 0.2 10 ^3/uL (0-0.8); Eosinophils % (auto) 2.8 % (0.0-7.0); Hemoglobin 11.1 g/dL (13.5-17.5); Lymphocytes # (auto) 1.8 10 ^3/uL (0.4-5.4); Lymphocytes % (auto) 30.6 % (10.0-50.0); Mean Corpuscular Hemoglobin 29.7 pg (28.0-32.0); Mean Corpuscular Hgb Conc. 32.6 g/dL (32.0-36.0); Monocytes # (auto) 0.5 10 ^3/uL (0-1.3); Monocytes % (auto) 7.9 % (0.0-12.0); Neutrophils # (auto) 3.4 10 ^3/uL (1.6-8.6); Neutrophils % (auto) 57.8 % (37.0-80.0); Nucleated Red Blood Cells % 0.1 %; Platelet Count (auto) 340 10^3/uL (140-450); Red Blood Cells 3.74 10^6/uL (4.5-5.90); Red Cell Distribution Width 13.9 % (11.8-14.3); White Blood Cell 5.9 10^3/uL (4.4-10.8)
[2024-07-27 08:32] LABS: Albumin 3.8 g/dL (3.2-4.8); Bilirubin, Total 0.6 mg/dL (0.2-1.0); Total Protein 7.7 g/dL (5.7-8.2)
[2024-07-27 08:33] LABS: Bilirubin, Direct 0.4 mg/dL (<0.3)
[2024-07-27 08:40] LABS: INR 1.11 (0.9-1.15); Partial Thromboplastin Time 27.3 SEC (24.5-34.5); Prothrombin Time 11.6 sec (9.3-11.8)
[2024-07-27 08:48] VITALS: BP 123/83; PULSE 86; RESP 20; TEMP 98; O2SAT 97
[2024-07-27 13:00] VITALS: BP 124/77; PULSE 97; RESP 18; TEMP 98.1; O2SAT 99
[2024-07-27] MEDS: LIDOCAINE 1% (LOCAL ANESTH.) PF 5ml SDV ID ONE (13:06)
--- NOTE | 2024-07-27 15:36 | DVHPN2 ---
Progress Note Date Seen: Jul 27, 2024 Resident Creating Document: JOON MOLINA RESIDENT Has the PT tested + for MRSA If YES, has PT been informed?: No Medical Necessity Reason Pt with a Central, PICC or Fol: No Subjective Review of Systems No new complaints. Draining 20 mL dark brown fluid from hepatic drain. No fever, nausea, vomiting, diarrhea. Objective vital signs Vital Sign Date Time Temp Pulse Resp B/P (MAP) Pulse Ox O2 Delivery O2 Flow Rate FiO2 07/27/24 13:00 98.1 97 18 124/77 (93) 99 98.1 07/27/24 08:00 Room Air* 0 21 Total Intake and Output 07/26/24 07/26/24 07/27/24 14:59 22:59 06:59 Intake Total 270 ml 950 ml 1000 ml Output Total 600 ml Balance 270 ml 950 ml 400 ml medications Current Medications Medications Dose Ordered Sig/Herlinda Route Start Time Stop Time Status Last Admin Dose Admin Pantoprazole Sodium 40 mg DAILY IV 07/15/24 10:00 07/27/24 09:54 40 MG Acetaminophen 1,000 mg TID PO 07/16/24 22:00 UNV Acetaminophen 650 mg Q8HR PO 07/17/24 14:00 UNV Acetaminophen 625 mg Q6HP PRN PO 07/22/24 13:15 07/27/24 06:59 625 MG Ceftriaxone Sodium/Dextrose 50 ml @ 50 mls/hr DAILY IV 07/23/24 10:00 07/27/24 09:55 50 MLS/HR Sodium Chloride 10 ml QSHIFT@10,22 IV 07/27/24 22:00 Examination General Appearance: Cooperative. Well developed. Well nourished. NAD Head Exam: Normal inspection Neck Exam: Normal inspection. Non-tender. Normal alignment Pulmonary/Respiratory: Chest non-tender. Clear bilateral breath sounds Cardiovascular/Chest: Regular rate and rhythm. No murmurs. No JVD. Peripheral Pulses: 2+ Radial (R). 2+ Radial (L). 2+ Pedal (R). 2+ Pedal (L) Abdominal Exam: Normal bowel sounds. Soft. Nontender. No hepatospenomegaly. No masses, presence of percutaneous drainage over right upper quadrant abdominal region. Ankle Exam: Negative ankle edema Lower extremities: Negative lower extremity edema Neuro/Mental Status: A&O x4. Coherent Thoughts/Psych: Normal thought pattern. Appropriate mood and affect. Good judgement and insight Appearance: In no acute distress Skin Exam: Normal inspection. Normal color. Warm. Dry laboratory and microbiology Laboratory Tests 07/27/24 07:48 07/25/24 07:20 Test 07/25/24 07:20 Range/Units Serum Glucose 111 H 74-106 mg/dL Microbiology Date/Time Source Procedure Growth Status 07/23/24 21:15 Blood Blood Culture - Preliminary NO GROWTH AFTER 72 HOURS OF INCUBATION. Resulted 07/22/24 17:50 Other Drainage Gram Stain - Final Resulted 07/22/24 17:50 Other Drainage Aerobic Culture - Preliminary Resulted 07/18/24 11:20 Aspirate Gram Stain - Final Complete 07/18/24 11:20 Aspirate Body Fluid Culture - Final Complete 07/16/24 06:56 Stool Ova and Parasites - Final Complete 07/16/24 06:56 Stool - Final Complete 07/14/24 17:22 Voided Urine Urine Culture - Final Complete Problem List/Assessment/Plan Problem List/Assessment/Plan Multiloculated liver abscess Sepsis due to above Liver mass can not be ruled out pending biopsy results Transaminitis likely due to liver abscess CLINT likely hemodynamically mediated Chronic alcoholism Morbid obesity Stool occult negative, no melena. Plan/recommendation Dr Sal -Patient will need GI clinic follow-up for management of percutaneous drainage. Recommend ID consultation for antibiotics and follow up in outpatient setting for continuous imaging monitoring of liver abscess. Patient will need at least 4-6 weeks of antibiotic. -CT scan of abdomen and pelvis on 07/25/2024: Drainage catheter seen in the abscess in the posterior right lobe of the liver which is improved when compared to the prior CT study.Small right. Pleural effusion.Atelectasis right lung base. No bowel obstruction. No pancreatitis. No obstructive uropathy. -underwent CT-guided percutaneous drainage of liver abscess, continued to get drainage via catheter. Culture still pending. -Continue Protonix 40 mg, can transition to oral. -specimen culture from right liver abscess negative for bacterial culture and parasites. -stool study negative for occult, C diff. hepatitis panel negative. -continue IV fluid hydration -continue to monitor liver function tests -advanced diet as per toleration -we will continue to monitor this patient. Plan discussed with: Patient, Other (RN) Dietary Evaluation Review Comments: Maintain adequate oral intakes >75% of meals Expected Outcomes/Goals: Improved nutrition related-lab values, avoidance of alcohol Protein Calorie Malnutrition: N/A JOON MOLINA RESIDENT Jul 27, 2024 15:36
--- NOTE | 2024-07-27 19:47 | DVHDSRES ---
Discharge Summary Date of Admission Resident Creating Document: ANGUS GILLESPIE RESIDENT Jul 14, 2024 at 17:21 Date of Discharge: Jul 27, 2024 Admitting Diagnosis Right upper quadrant pain Labs/Diagnostic Data: Laboratory Results Test 07/27/24 07:48 07/25/24 07:20 07/24/24 07:40 07/16/24 06:56 White Blood Count 5.9 10^3/uL (4.4-10.8) Red Blood Count 3.74 10^6/uL (4.5-5.90) Hemoglobin 11.1 g/dL (13.5-17.5) Hematocrit 34.0 % (41.0-53.0) Mean Corpuscular Volume 91.0 fL (80.0-100.0) Mean Corpuscular Hemoglobin 29.7 pg (28.0-32.0) Mean Corpuscular Hemoglobin Concent 32.6 g/dL (32.0-36.0) Red Cell Distribution Width 13.9 % (11.8-14.3) Platelet Count 340 10^3/uL (140-450) Mean Platelet Volume 6.5 fL (6.9-10.8) Neutrophils (%) (Auto) 57.8 % (37.0-80.0) Lymphocytes (%) (Auto) 30.6 % (10.0-50.0) Monocytes (%) (Auto) 7.9 % (0.0-12.0) Eosinophils (%) (Auto) 2.8 % (0.0-7.0) Basophils (%) (Auto) 0.9 % (0.0-2.0) Neutrophils # (Auto) 3.4 10 ^3/uL (1.6-8.6) Lymphocytes # (Auto) 1.8 10 ^3/uL (0.4-5.4) Monocytes # (Auto) 0.5 10 ^3/uL (0-1.3) Eosinophils # (Auto) 0.2 10 ^3/uL (0-0.8) Basophils # (Auto) 0.1 10 ^3/uL (0-0.2) Nucleated Red Blood Cells 0.1 % Prothrombin Time 11.6 sec (9.3-11.8) Prothrombin Time INR 1.11 (0.9-1.15) Activated Partial Thromboplast Time 27.3 SEC (24.5-34.5) Total Bilirubin 0.6 mg/dL (0.2-1.0) Direct Bilirubin 0.4 mg/dL (<0.3) Aspartate Amino Transferase (AST) 36 U/L (13-40) Alanine Aminotransferase (ALT) 91 U/L (7-40) Alkaline Phosphatase 125 U/L (46-116) Total Protein 7.7 g/dL (5.7-8.2) Albumin 3.8 g/dL (3.2-4.8) Sodium Level 136 mmol/L (136-145) Potassium Level 4.0 mmol/L (3.5-5.1) Chloride Level 101 mmol/L (98-107) Carbon Dioxide Level 26 mmol/L (20-31) Anion Gap 9 (5-15) Blood Urea Nitrogen 10 mg/dL (9-23) Creatinine 0.73 mg/dL (0.700-1.30) Glomerular Filtration Rate Calc 119 mL/min (>90) BUN/Creatinine Ratio 13.7 (10.0-20.0) Serum Glucose 111 mg/dL (74-106) Calcium Level 9.1 mg/dL (8.7-10.4) HIV (1&2) Antibody Negative (Negative) Phosphorus Level 4.0 mg/dL (2.4-5.1) Magnesium Level 1.7 mg/dL (1.6-2.6) C-Reactive Protein High Sensitivity 4.47 mg/dL (<1.0) Stool for White Cells Few Test 07/15/24 23:21 07/15/24 11:54 07/15/24 07:28 07/14/24 17:42 Influenza Type A Antigen Negative (Negative) Influenza Type B Antigen Negative (Negative) SARS-CoV-2 Antigen (Rapid) Negative (NEGATIVE) Tumor Marker Alpha Fetoprotein <1.8 ng/mL (0.0-6.9) Carcinoembryonic Antigen < 0.50 ng/mL (<=5.0) CA 19-9 Antigen <2 U/mL (0-35) Plasma/Serum Blood Alcohol < 3.0 mg/dL (<10) Hepatitis A IgM Antibody Negative Hepatitis B Surface Antigen Negative (Negative) Hepatitis B Core IgM Antibody Negative (Negative) Hepatitis C Antibody Negative (Negative) Lactate Dehydrogenase 419 U/L (120-246) Stool Occult Blood Negative (Negative) Stool Occult Blood Sample #3 (Negative) Test 07/14/24 17:22 07/14/24 08:43 Urine Color Yellow (Yellow) Urine Clarity Clear (Clear) Urine pH 6.0 (5.0-9.0) Urine Specific [place] 1.021 (1.001-1.035) Urine Protein 1+ (Negative) Urine Ketones Negative (Negative) Urine Blood Trace /uL (Negative) Urine Nitrite Negative (Negative) Urine Bilirubin 1+ (Negative) Urine Urobilinogen 3 mg/dL (Negative) Urine Leukocyte Esterase Negative /uL (Negative) Urine RBC 1 /hpf (0 - 3) Urine Microscopic WBC 3 /HPF (0-3) Urine Squamous Epithelial Cells Few /hpf (<5) Urine Amorphous Crystals Few /hpf (None Seen) Urine Bacteria Few /hpf (None Seen) Urine Hyaline Casts Few /lpf (0 - 2) Urine Glucose Normal mg/dL (Normal) Urine Opiates Screen Neg (NEGATIVE) Urine Fentanyl Screen Neg (NEGATIVE) Urine Barbiturates Screen Neg (NEGATIVE) Urine Phencyclidine Screen Neg (NEGATIVE) Urine Amphetamines Screen Neg (NEGATIVE) Urine Benzodiazepines Screen Neg (NEGATIVE) Urine Cocaine Screen Neg (NEGATIVE) Urine Cannabinoids Screen Pos (NEGATIVE) Erythrocyte Sedimentation Rate 109 mm/hr (0-20) Lactic Acid Level 1.2 mmol/L (0.4-2.0) Lipase 25 U/L (12-53) Other Laboratory Tests 07/27/24 07:48 07/25/24 07:20 Brief Hx & Hospital Course: Patient is a 38-year-old male with no significant past medical history who came to the ED due to an increasing right upper quadrant abdominal pain that has been ongoing for the last 1 week. Along with that he noted that he started experiencing fever, chills, anorexia and a dark-colored diarrhea. Patient noted that he drinks alcohol every day and uses CBD/THS. Per patient he used to smoke but quit smoking 2 weeks ago. Patient was started on IV fluids and IV meropenem initially, CT scan showed multiple ill-defined hypodense lesions of the liver. GI was taken on board. Patient underwent a triple phase abdominal CT with IV contrast which showed large multi-septated lesions in the right hepatic lobe measuring up to 13.7 cm, satellite lesions adjacent, additional multi-septated lesions in the anterior right hepatic lobe measuring up to 4.8 cm. All tumor markers were negative. Stool occult blood was negative and a few stool white blood cells were seen. Stool culture was negative for Shiga toxin, C diff and Campylobacter. Interventional Radiology were consulted for drainage of the liver and possible biopsy and patient underwent liver abscess drainage on 07/18/2024. Preliminary culture of the fluid was negative, fluid analysis also negative for malignancy. A drain was left in place which continued to drain reddish tinged purulent drainage daily. Infectious Disease was also taken on board and patient's antibiotics were eventually changed to IV ceftriaxone [address] scan with IV contrast after 1 week showed drainage catheter seen in the abscess in the posterior right lobe of the liver which is improved when compared to the prior CT study. In his small right-sided pleural effusion was also noted along with atelectasis of the right lung base. By the 11th day of hospitalization, patient's nightly fevers had resolved, the right upper quadrant pain Had resolved as well. patient financial services coordinator were consulted to arrange home health for IV antibiotics ceftriaxone 2 g daily for 4 weeks. Patient was instructed to follow up with Infectious Disease in the outpatient clinic as well as a follow up with GI in the outpatient clinic for his drainage catheter management. Patient was scheduled for a follow up in the discharge clinic and was also encouraged to follow up with his PCP at his earliest. His hospital course was uncomplicated. Constitutional: Patient was alert and oriented to time, place and person. Patient reports improvement in right upper quadrant pain and fever since undergoing drainage of liver abscess. Gen - no pallor, mild scleral icterus, no cyanosis, no clubbing, no LAD, no edema . Skin - Patients skin is warm and dry. Noted to have a new onset fluid-filled blister a prox 1 cm by 2 cm near the right tube site HEENT - normocephalic, atraumatic, dry mucous membranes. Neck - full ROM, no LAD, no JVD Pulmonary - B/L vesicular breath sounds. no crackles , no wheezing cardiovascular - normal S1,S2 heard. no murmurs heard. peripheral pulses normal radial 2+, pedal 2+. GI - soft abdomen with tenderness to palpation in the right upper quadrant . no hepatospleenomegaly. Bowel sounds normoactive Neurological - Bilateral upper extremity strength 5/5, bilateral lower extremity strength 5/5, no facial droop, normal speech, no tremor, no sensory deficit Operations or Procedures EXAM: CT Abdomen and Pelvis Without Intravenous Contrast CLINICAL INDICATION: abd pain TECHNIQUE: Axial computed tomography images of the abdomen and pelvis without intravenous contrast. This CT exam was performed using one or more of the following dose reduction techniques: automated exposure control, adjustment of the mA and/or kV according to patient size, and/or use of iterative reconstruction technique. CONTRAST: COMPARISON: None FINDINGS: LUNG BASES: Bibasilar atelectasis or scarring. ABDOMEN: LIVER: Multiple ill-defined hypodense lesions of the liver. Further characterization with MRI or CT of the abdomen using liver mass protocol is recommended. GALLBLADDER AND BILE DUCTS: Unremarkable. No calcified stones. No ductal dilation. PANCREAS: Unremarkable. No ductal dilation. SPLEEN: Unremarkable. No splenomegaly. ADRENALS: Unremarkable. No mass. KIDNEYS AND URETERS: Unremarkable. No stones within either kidney. No hydronephrosis. STOMACH AND BOWEL: Colonic diverticulosis. No obstruction. No mucosal thickening. PELVIS: APPENDIX: Normal appendix. BLADDER: Unremarkable. No stones. REPRODUCTIVE: Unremarkable as visualized. ABDOMEN and PELVIS: INTRAPERITONEAL SPACE: Unremarkable. No free air. No significant fluid collection. BONES/JOINTS: No acute fracture. No dislocation. SOFT TISSUES: Unremarkable. VASCULATURE: Unremarkable. No abdominal aortic aneurysm. LYMPH NODES: Unremarkable. No enlarged lymph nodes. OTHER FINDINGS: . . . . . .. IMPRESSION: 1. Normal appendix. 2. Multiple ill-defined hypodense lesions of the liver. Further characterization with MRI or CT of the abdomen using liver mass protocol is recommended. 3. No obstructive uropathy. INDICATION: transamninitis TECHNIQUE: Multiple real-time sonographic images were obtained of the right upper quadrant. COMPARISON: None FINDINGS: Liver measures 23 cm. 12 cm heterogeneous mass right hepatic lobe. MRI liver mass protocol recommended. The gallbladder is without evidence of stone or sludge. The gallbladder wall measures 0.2 mm and is within normal limits. The right kidney measures 14 cm. The right kidney is normal in contour, size, and shape. The echogenicity is normal. There is no hydronephrosis. The pancreas is not well visualized due to overlying bowel gas. IMPRESSION: Liver measures 23 cm. 12 cm heterogeneous mass right hepatic lobe. MRI liver mass protocol recommended. Hepatic steatosis. Exam: CT CT AB PEL WITH IV CON ONLY History: liver abscess COMPARISON: CT abdomen/ pelvis 07/14/2024; liver ultrasound 07/15/2024 Technique: Multidetector spiral CT of the abdomen and pelvis was performed from lung bases to pubic symphysis. Intravenous contrast was administered during this examination. Multiphasic imaging was obtained. Axial, coronal and sagittal multiplanar reformats were performed by the technologist on a separate workstation. Radiation Dose : 1. Abdomen/Pelvis: CTDIvol 87 mGy, DLP 4080.28 mGy*cm. CONTRAST: 100 mL Omnipaque 300 Findings: Lung Bases: [id number]-left subsegmental atelectasis. Visualized heart is unremarkable. Liver: Liver measures up to 29 cm in craniocaudal length. In the right posterior hepatic lobe there is a large multi-septated hypodense lesion measuring 9.4 x 10.2 x 13.7 cm (AP by TV by cc). There are a couple of poorly defined hypodense lesions adjacent to this measuring up to a couple centimeters. No evidence nodular enhancement on any phase. No evidence of delayed contrast fill-in. Additional multi-septated lesion in the anterior aspect of the right hepatic lobe measuring 3.8 x 4.6 x 4.8 cm. Gallbladder and Biliary Tree: Unremarkable Spleen: Unremarkable Pancreas: The pancreas is normal in appearance without focal lesions or abnormal enhancement. Adrenal Glands: Unremarkable Kidneys: No hydronephrosis. Bladder: Unremarkable Bowel: The stomach is grossly normal in appearance. Small bowel and colon are normal in caliber and distribution. Colonic diverticulosis without evidence of diverticulitis. Normal appendix is visualized in the right lower quadrant without findings of appendicitis. Ascites: Absent Lymphadenopathy: No mesenteric, retroperitoneal or periportal lymphadenopathy. Abdominal Wall and Mesentery: Unremarkable. Vasculature: The visualized abdominal aorta is normal in size and caliber. Abdominal and pelvic vessels demonstrate normal enhancement. Pelvic Organs: Unremarkable Musculoskeletal: No aggressive focal bony lesions, acute fractures or dislocation. IMPRESSION: 1. Large multi-septate lesion in the right hepatic lobe measuring up to 13.7 cm. Small satellite lesions directly adjacent to this, as well as an additional multiseptate lesion in the anterior right hepatic lobe measuring up to 4.8 cm. Findings are favored to represent hepatic abscesses; however, a cystic neoplasm can not be entirely excluded by imaging. 2. Mild nonspecific stranding in the right hepatorenal recess. Radiation optimization: All CT scans at this facility use at least one of these dose optimization techniques: automated exposure control mA and/or kV adjustment per patient size (includes targeted exams where dose is matched to clinical indication) or iterative reconstruction. PROCEDURE: CT GUIDED DRAIN PLACEMENT HISTORY: LIVER DRAINAGE EBL: 5 mL COMPLICATIONS: none immediate Radiation dose information: CTDI vol 185.4 mGy; DLP mGycm 15[address] The dose indicators for CT are the volume Computed Tomography (CT) Dose Index (CTDIvol) and the Dose Length Product (DLP), and are measured in units of mGy and mGy-cm, respectively. These indicators are not patient dose, but values generated from the CT scanner acquisition factors. The report includes radiation exposure data for exposures received during this examination. If multiple reports are produced from this examination, the exposure data is duplicated in each report. The exposure data reported is indicative, but not determinative, of the radiation dose received by this patient. DOCUMENTATION: Informed consent was obtained and a procedural time out was performed. SEDATION: Moderate sedation was utilized during the procedure. The patient received benzodiazepines and opioids, the dosing of which was documented in the patient s permanent medical record. Pre-sedation history and evaluation revealed no contraindications to sedation. The patient s level of consciousness and physiologic status was monitored continuously by the physician and nursing staff throughout the procedure. Total intra-service moderate sedation time was 30 minutes. TECHNIQUE: The skin over the right lateral abdominal wall was sterilely prepped, draped, and infiltrated with 1% lidocaine. Computed tomography was used to locate the fluid collection. The collection was accessed with a 19-gauge Yueh needle and a wire coiled in the collection. A 10 Czech APD was then placed and the coil formed. Tube placement was confirmed with follow up CT imaging. The catheter was secured and connected to bulb suction. Sterile dressings were applied. FINDINGS: CT demonstrates a hepatic fluid collection. The final images show the tube in the collection. PUS material was aspirated with a sample sent for laboratory evaluation. No complications were encountered. IMPRESSION: CT GUIDED PLACEMENT OF AN 8.5 FR DRAINAGE CATHETER WITHIN THE hepatic COLLECTION. RECOMMENDATION/PLAN: Maintain drainage tube to bulb suction drainage. PROCEDURE: CT GUIDED DRAIN PLACEMENT HISTORY: LIVER DRAINAGE EBL: 5 mL COMPLICATIONS: none immediate Radiation dose information: CTDI vol 185.4 mGy; DLP mGycm [address] The dose indicators for CT are the volume Computed Tomography (CT) Dose Index (CTDIvol) and the Dose Length Product (DLP), and are measured in units of mGy and mGy-cm, respectively. These indicators are not patient dose, but values generated from the CT scanner acquisition factors. The report includes radiation exposure data for exposures received during this examination. If multiple reports are produced from this examination, the exposure data is duplicated in each report. The exposure data reported is indicative, but not determinative, of the radiation dose received by this patient. DOCUMENTATION: Informed consent was obtained and a procedural time out was performed. SEDATION: Moderate sedation was utilized during the procedure. The patient received benzodiazepines and opioids, the dosing of which was documented in the patient s permanent medical record. Pre-sedation history and evaluation revealed no contraindications to sedation. The patient s level of consciousness and physiologic status was monitored continuously by the physician and nursing staff throughout the procedure. Total intra-service moderate sedation time was 30 minutes. TECHNIQUE: The skin over the right lateral abdominal wall was sterilely prepped, draped, and infiltrated with 1% lidocaine. Computed tomography was used to locate the fluid collection. The collection was accessed with a 19-gauge Yueh needle and a wire coiled in the collection. A 10 Czech APD was then placed and the coil formed. Tube placement was confirmed with follow up CT imaging. The catheter was secured and connected to bulb suction. Sterile dressings were applied. FINDINGS: CT demonstrates a hepatic fluid collection. The final images show the tube in the collection. PUS material was aspirated with a sample sent for laboratory evaluation. No complications were encountered. IMPRESSION: CT GUIDED PLACEMENT OF AN 8.5 FR DRAINAGE CATHETER WITHIN THE hepatic COLLECTION. RECOMMENDATION/PLAN: Maintain drainage tube to bulb suction drainage. Exam: CT CT CHEST/AB/PL W CON- IV ONLY History: multiloculated liver abscess COMPARISON: CT CT AB PEL WITH IV CON ONLY on DOS: 07/17/24 Technique: Multidetector spiral CT of the abdomen and pelvis was performed from lung bases to pubic symphysis. Intravenous contrast was administered during this examination. Portal venous imaging was obtained. Axial, coronal and sagittal multiplanar reformats were performed by the technologist on a separate workstation. Radiation Dose : 1. Abdomen/Pelvis: CTDIvol 26.34mGy, DLP 2114.88 mGy*cm. CONTRAST: Type of contrast: Omnipaque 300 Contrast injected: 100 ml Contrast ingested: 0 ml Findings: Normal larynx. No central airway lesions. Mild right pleural effusion. Aorta and pulmonary arteries are unremarkable. No obvious central pulmonary emboli. Atelectasis right lung base. No aortic aneurysm. No infiltrate in the left lung. Lung Bases: No acute or significant lung base finding. Normal heart size. No pleural or pericardial effusion. Liver: 5 Czech drainage catheter is seen in the right lobe of the liver posteriorly. Interval decrease in the size of the right liver abscess. Air is seen within the lesion. Gallbladder and Biliary Tree: Unremarkable Spleen: Unremarkable Pancreas: The pancreas is normal in appearance without focal lesions or abnormal enhancement. Adrenal Glands: Unremarkable Kidneys: No hydronephrosis. Bladder: Unremarkable Bowel: The stomach is grossly normal in appearance. Small bowel and colon are normal in caliber and distribution. The appendix is not visualized; however, no secondary findings of acute appendicitis identified. Ascites: Absent Lymphadenopathy: No mesenteric, retroperitoneal or periportal lymphadenopathy. Abdominal Wall and Mesentery: Unremarkable. Vasculature: The visualized abdominal aorta is normal in size and caliber. Abdominal and pelvic vessels demonstrate normal enhancement. Pelvic Organs: Unremarkable Musculoskeletal: No aggressive focal bony lesions, acute fractures or dislocation. IMPRESSION: 1. Drainage catheter seen in the abscess in the posterior right lobe of the liver which is improved when compared to the prior CT study.Small right Pleural effusion. Atelectasis right lung base. No bowel obstruction. No pancreatitis. No obstructive uropathy. Condition at Discharge: Fair Final Diagnosis/Problems List #Sepsis secondary to ?liver abscess #Liver mass #Possible Pyogenic liver abscesses, possibly secondary to Klebsiella translocation versus echinococcus #Melena #Anemia secondary to above #Transaminitis secondary to liver abscess versus alcoholic liver disease #CLINT, likely vasomotor mediated resolved #Hyponatremia #Chronic alcoholism #Cannabis dependence #Morbid obesity Discharge Disposition: Home with Health Services Discharge Instruct/Medications Diet: Cardiac 2g Na,low cholest Activity: No Restrictions, As Tolerated Follow Up/Referral: Please follow up with PCP in 1-2 weeks Please follow up with Infectious Disease in the outpatient clinic Please follow up with GI in the outpatient clinic for management of catheter to the right upper quadrant Medications: Please continue IV ceftriaxone 2 g once daily for 4 weeks Discharge Statement: "Patient was advised to return to the ER or call 911 if any headaches, dizziness, shortness of breath, chest pain, abdominal pain, bleeding, fevers, or worsening of medical condition. Patient was counseled about treatment plan, medications, possible side effects, patientverbalized understanding. All questions were answered to the best of my ability. This discharge took greater then 30 minutes in planning, reviewing documentation, counseling the patient, and discussing with other team members." ASSESSMENT ASSESSMENT Assessment #Sepsis secondary to ?liver abscess #Liver mass #Possible Pyogenic liver abscesses, possibly secondary to Klebsiella translocation versus echinococcus #Melena #Anemia secondary to above #Transaminitis secondary to liver abscess versus alcoholic liver disease #CLINT, likely vasomotor mediated resolved #Hyponatremia #Chronic alcoholism #Cannabis dependence #Morbid obesity ANGUS GILLESPIE RESIDENT Jul 27, 2024 19:47
[2024-07-27] MEDS ORDERED: SODIUM CHLOR 0.9% PF (SALINE LOCK) 10ML VIAL/SYR IV SCH (22:00)
--- NOTE | 2024-07-27 23:54 | DVHPN2 ---
Consult Progress Note Date Seen: Jul 27, 2024 Subjective Patient reports: Feels better (piccline in place and feels much better ), Other Objective vital signs Vital Sign Date Time Temp Pulse Resp B/P (MAP) Pulse Ox O2 Delivery O2 Flow Rate FiO2 07/27/24 13:00 98.1 97 18 124/77 (93) 99 98.1 07/27/24 08:00 Room Air* 0 21 Total Intake and Output 07/26/24 07/26/24 07/27/24 15:00 23:00 07:00 Intake Total 270 ml 950 ml 1000 ml Output Total 600 ml Balance 270 ml 950 ml 400 ml medications Current Medications Medications Dose Ordered Sig/Herlinda Route Start Time Stop Time Status Last Admin Dose Admin Acetaminophen 1,000 mg TID PO 07/16/24 22:00 UNV Acetaminophen 650 mg Q8HR PO 07/17/24 14:00 UNV Physical Exam: General:?Morbidly obese male in no acute distress. Neck:?Supple. No masses. HEENT:?PERRL. Normal lids and conjunctiva. Moist mucous membranes. Oropharynx without lesions, exudates, or excessive erythema. Normal appearance of the external aspects of the nose and ears. Heart:?Tachycardic with regular rhythm. No murmurs. No lower extremity edema. Lungs:?Normal respiratory effort. Clear to auscultation bilaterally. No wheezes. No crackles. Abdomen:?Soft, mildly tender in right upper quadrant on deep palpation. Non- distended. No masses or abdominal hernia. Msk:?No digital cyanosis. Normal strength and tone in all four limbs. Skin:?Warm and dry, no rashes. No open wounds. Neuro:?Alert. No facial droop or slurred speech. Extraocular movements intact. Sensation intact to soft touch in all four limbs. Psych:?Appropriate mood. Full affect. Oriented to person, place, time, and situation. laboratory and microbiology Laboratory Tests 07/27/24 07:48 07/25/24 07:20 Test 07/25/24 07:20 Range/Units Serum Glucose 111 H 74-106 mg/dL Problem List/Assessment/Plan Problems(with codes): (1) Nonspecific colitis (2) Sepsis, unspecified organism (3) Abnormal finding on GI tract imaging (4) Liver masses (5) Liver abscess Problem List/Assessment/Plan ID Problem List: - Sepsis - Hepatic abscess - Alcohol abuse - Tobacco use - Marijuana use - Diarrhea - Shortness of breath - Morbid obesity Assessment This is a 38 y.o. male with a past medical history of morbid obesity, alcohol abuse, tobacco use, and marijuana use, who presents with acute abdominal pain, diarrhea with runny black stools, decreased appetite, dysuria, fevers, and night sweats for the last 8 days. He also reports shortness of breath over the last several days. Denies any recent sick contacts or right upper quadrant pain. On admission, vital signs notable for fever up to 102.9F, tachycardia with pulse of 115 bpm, and hypertension with BP 171/87 mmHg. Physical exam revealed mild tenderness in the right upper quadrant on deep palpation. Laboratory data significant for leukocytosis with WBC count of 18.6 K/uL, which has decreased to 12.8 K/uL post-drainage. Platelet count elevated from 362 K/uL on admission to 449 K/uL currently. Sodium 133 mmol/L, BUN 13 mg/dL, creatinine 0.78 mg/dL. Imaging studies: - CT abdomen/pelvis revealed multiple ill-defined hypodense lesions of the liver. - Liver ultrasound showed hepatic steatosis with the liver measuring 23 cm and a 12 cm heterogeneous mass in the right hepatic lobe. - Chest X-ray showed right lower lobar space disease. He underwent interventional radiology-guided drainage of the hepatic abscess on the , with placement of an 8.5 German drainage catheter. Approximately 75 cc of purulent material was aspirated. Blood cultures and aspirate cultures are pending; no growth to date. Patient continues to have fevers and runny stools but denies abdominal pain currently. 07/23: whitecount is 8.9 and improved 07/24: whitecount is 7.7 , fluid cultures from drain show no organisms 07/25: patients drainage has gone down significantly 07/26: Ct abdomen and pelvis shows a smaller abscess and the drain of catheter being in the appropriate spot 07/27: patient Ct chest does not show any empyema Plan: - abscess has significantly decreased in side however they are still a failrly large so would send home with 1 month of IV ceftriaxone - wound send for canococcus antibodies - recommend ceftriaxone IV for at least 4 weeks - patient will need a follow up Ct abdomen and pelvis to confirm hepatic abscess - follow up with infectious disease in 4 weeks to see if alterations to antibiotics need to be made - follow up with IR for drain management - on the differential is Klebsiella (from gut translocation from acute diarrheal illness or pneumonia) or other aspirated organism (pneumonia) via hematogenous spread. echinococcus would also be a consideration. - Continue ceftriaxone 2 g IV daily to cover hepatic abscess; discontinue Zosyn. - Monitor for culture results from blood and abscess drainage. - Consider HIV screening due to risk factors associated with substance abuse. - Obtain CT chest to evaluate for possible aspiration pneumonia contributing to hepatic abscess. - Encourage smoking cessation and alcohol abstinence; consult substance abuse services. - Monitor vital signs and labs closely; assess for resolution of fevers and improvement in leukocytosis. - Provide supportive care for symptoms (e.g., antipyretics for fever). Isolation Precautions: Standard Plan discussed with: Other Dietary Evaluation Review Comments: Maintain adequate oral intakes >75% of meals Expected Outcomes/Goals: Improved nutrition related-lab values, avoidance of alcohol Protein Calorie Malnutrition: N/A MARYBETH GONZALEZ MD Jul 27, 2024 23:54
--- NOTE | 2024-07-27 23:54 | DVHPN2 ---
Consult Progress Note Date Seen: Jul 25, 2024 Subjective Patient reports: Other (tolerating diet , an output of 50ccs of drainage ) Objective vital signs Vital Sign Date Time Temp Pulse Resp B/P (MAP) Pulse Ox O2 Delivery O2 Flow Rate FiO2 07/27/24 13:00 98.1 97 18 124/77 (93) 99 98.1 07/27/24 08:00 Room Air* 0 21 Total Intake and Output 07/26/24 07/26/24 07/27/24 15:00 23:00 07:00 Intake Total 270 ml 950 ml 1000 ml Output Total 600 ml Balance 270 ml 950 ml 400 ml medications Current Medications Medications Dose Ordered Sig/Herlinda Route Start Time Stop Time Status Last Admin Dose Admin Acetaminophen 1,000 mg TID PO 07/16/24 22:00 UNV Acetaminophen 650 mg Q8HR PO 07/17/24 14:00 UNV Physical Exam: General:?Morbidly obese male in no acute distress. Neck:?Supple. No masses. HEENT:?PERRL. Normal lids and conjunctiva. Moist mucous membranes. Oropharynx without lesions, exudates, or excessive erythema. Normal appearance of the external aspects of the nose and ears. Heart:?Tachycardic with regular rhythm. No murmurs. No lower extremity edema. Lungs:?Normal respiratory effort. Clear to auscultation bilaterally. No wheezes. No crackles. Abdomen:?Soft, mildly tender in right upper quadrant on deep palpation. Non- distended. No masses or abdominal hernia. Msk:?No digital cyanosis. Normal strength and tone in all four limbs. Skin:?Warm and dry, no rashes. No open wounds. Neuro:?Alert. No facial droop or slurred speech. Extraocular movements intact. Sensation intact to soft touch in all four limbs. Psych:?Appropriate mood. Full affect. Oriented to person, place, time, and situation. laboratory and microbiology Laboratory Tests 07/27/24 07:48 07/25/24 07:20 Test 07/25/24 07:20 Range/Units Serum Glucose 111 H 74-106 mg/dL Problem List/Assessment/Plan Problems(with codes): (1) Liver abscess (2) Liver masses (3) Abnormal finding on GI tract imaging (4) Sepsis, unspecified organism (5) Nonspecific colitis Problem List/Assessment/Plan ID Problem List: - Sepsis - Hepatic abscess - Alcohol abuse - Tobacco use - Marijuana use - Diarrhea - Shortness of breath - Morbid obesity Assessment This is a 38 y.o. male with a past medical history of morbid obesity, alcohol abuse, tobacco use, and marijuana use, who presents with acute abdominal pain, diarrhea with runny black stools, decreased appetite, dysuria, fevers, and night sweats for the last 8 days. He also reports shortness of breath over the last several days. Denies any recent sick contacts or right upper quadrant pain. On admission, vital signs notable for fever up to 102.9F, tachycardia with pulse of 115 bpm, and hypertension with BP 171/87 mmHg. Physical exam revealed mild tenderness in the right upper quadrant on deep palpation. Laboratory data significant for leukocytosis with WBC count of 18.6 K/uL, which has decreased to 12.8 K/uL post-drainage. Platelet count elevated from 362 K/uL on admission to 449 K/uL currently. Sodium 133 mmol/L, BUN 13 mg/dL, creatinine 0.78 mg/dL. Imaging studies: - CT abdomen/pelvis revealed multiple ill-defined hypodense lesions of the liver. - Liver ultrasound showed hepatic steatosis with the liver measuring 23 cm and a 12 cm heterogeneous mass in the right hepatic lobe. - Chest X-ray showed right lower lobar space disease. He underwent interventional radiology-guided drainage of the hepatic abscess on the , with placement of an 8.5 Niuean drainage catheter. Approximately 75 cc of purulent material was aspirated. Blood cultures and aspirate cultures are pending; no growth to date. Patient continues to have fevers and runny stools but denies abdominal pain currently. 07/23: whitecount is 8.9 and improved 07/24: whitecount is 7.7 , fluid cultures from drain show no organisms 07/25: patients drainage has gone down significantly Plan: - follow up on pending Ct abdomen and pelvis to see if abscess has significantly decreased in size , if so patient may be a candidate for oral antibiotic therapy , however if theres an ongoing abscess then may be required to have IV antibiotics - wound send for canococcus antibodies - recommend ceftriaxone IV for at least 4 weeks - patient will need a follow up Ct abdomen and pelvis to confirm hepatic abscess - follow up with infectious disease in 4 weeks to see if alterations to antibiotics need to be made - follow up with IR for drain management - on the differential is Klebsiella (from gut translocation from acute diarrheal illness or pneumonia) or other aspirated organism (pneumonia) via hematogenous spread. echinococcus would also be a consideration. - Continue ceftriaxone 2 g IV daily to cover hepatic abscess; discontinue Zosyn. - Monitor for culture results from blood and abscess drainage. - Consider HIV screening due to risk factors associated with substance abuse. - Obtain CT chest to evaluate for possible aspiration pneumonia contributing to hepatic abscess. - Encourage smoking cessation and alcohol abstinence; consult substance abuse services. - Monitor vital signs and labs closely; assess for resolution of fevers and improvement in leukocytosis. - Provide supportive care for symptoms (e.g., antipyretics for fever). Isolation Precautions: Standard Plan discussed with: Other Dietary Evaluation Review Comments: Maintain adequate oral intakes >75% of meals Expected Outcomes/Goals: Improved nutrition related-lab values, avoidance of alcohol Protein Calorie Malnutrition: N/A MARYBETH GONZALEZ MD Jul 27, 2024 23:54
== END 2024-07-27 16:15 | disposition home health service (06) | DRG 871 ==
LOC: ER 07:00 → OVERFLOW 17:21 → WEST WING 07-15 02:35
PROVIDERS: ADMIT Student in an Organized Health Care Education/Training Program; ATTEND Emergency Medicine
PROC: 0F903ZZ Drainage of Liver, Percutaneous Approach (ICD-10-PCS; principal; 2024-07-18)
PROC: 02HV33Z Insertion of Infusion Device into Superior Vena Cava, Percutaneous Approach (ICD-10-PCS; 2024-07-27)
PROC: B548ZZA Ultrasonography of Superior Vena Cava, Guidance (ICD-10-PCS; 2024-07-27)
DX: A41.59 Other Gram-negative sepsis (principal); K75.0 Abscess of liver; E87.1 Hypo-osmolality and hyponatremia; N17.9 Acute kidney failure, unspecified; Z68.41 Body mass index [BMI] 40.0-44.9, adult; K52.9 Noninfective gastroenteritis and colitis, unspecified; D64.9 Anemia, unspecified; Z20.822 Contact with and (suspected) exposure to COVID-19; R74.01 Elevation of levels of liver transaminase levels; R30.0 Dysuria; F17.210 Nicotine dependence, cigarettes, uncomplicated; F12.20 Cannabis dependence, uncomplicated; R16.0 Hepatomegaly, not elsewhere classified; F10.10 Alcohol abuse, uncomplicated; Y90.9 Presence of alcohol in blood, level not specified; I10 Essential (primary) hypertension; K76.0 Fatty (change of) liver, not elsewhere classified; E66.01 Morbid (severe) obesity due to excess calories
CPT/HCPCS: 10005; 36415; 36569; 71045; 71260; 74150; 74176; 74177; 76705; 77012; 80048; 80053; 80074; 80076; 80307; 80320; 81001; 82105; 82248; 82270; 82378; 82565; 83605; 83615; 83690; 83735; 84100; 85025; 85048; 85610; 85652; 85730; 86141; 86301; 86703; 86803; 87040; 87045; 87070; 87086; 87177; 87205; 87340; 87426; 87427; 87493; 87804; 96365; C1729; G0378; J1885; J2185; J2470; J2543; J3490

== ENCOUNTER 2024-09-13 08:23 | Emergency (ER) | payer BC ==
[~2024-09-13] VITALS: Ht 182.9 cm; Wt 146.4 kg
[2024-09-13 10:30] VITALS: BP 142/77; PULSE 71; RESP 19; TEMP 97.9; O2SAT 99
--- NOTE | 2024-09-13 10:46 | ED.PDOC ---
History of Present Illness HPI Comments 39 year old male presents to the ED with a chief complaint of tube removal onset today. Patient states he had a liver drainage tube placed by [facility] radiology about 1 month ago, was told to get it removed today, was sent to ED for removal. Denies any PMHx as well as chest pain, nausea, vomiting, diarrhea, headache, shortness of breath, dizziness. No other symptoms or modifying factors present at this time. Chief Complaint: Tube Replacement Time Seen by MD: 10:02 Primary Care Provider: none Reviewed Notes: Medications, Allergies Allergies: Coded Allergies: NO KNOWN ALLERGIES (Unverified , 07/14/24) Home Meds No Active Prescriptions or Reported Meds Information Source: Patient Mode of Arrival: Ambulatory Severity: Moderate Timing: Hours Duration: Since onset Prehospital treatment: None Past Medical History PAST MEDICAL HISTORY: Denies Surgical History: Denies all surgeries Family History Family History: Unknown Social History Smoker: Cigarettes Alcohol: Occasionally Drugs: Marijuana Lives In: Home Constitutional: denies: chills, diaphoresis, fatigue, fever, malaise, sweats, weakness, others EENTM: denies: blurred vision, double vision, ear bleeding, ear discharge, ear drainage, ear pain, ear ringing, eye pain, eye redness, hearing loss, mouth pain, mouth swelling, nasal discharge, nose bleeding, nose congestion, nose pain, photophobia, tearing, throat pain, throat swelling, voice changes, others Respiratory: denies: cough, hemoptysis, orthopnea, SOB at rest, shortness of breath, SOB with excertion, stridor, wheezing, others Cardiovascular: denies: chest pain, dizzy spells, diaphoresis, Dyspnea on exertion, edema, irregular heart beat, left arm pain, lightheadedness, palpitations, PND, syncope, others Gastrointestinal: denies: abdomen distended, abdominal pain, blood streaked bowels, constipated, diarrhea, dysphagia, difficulty swallowing, hematemesis, melena, nausea, poor appetite, poor fluid intake, rectal bleeding, rectal pain, vomiting, others Genitourinary: denies: burning, dysuria, flank pain, frequency, hematuria, incontinence, penile discharge, penile sore, pain, testicle pain, testicle swelling, urgency, others Neurological: denies: dizziness, fainting, headache, left sided numbness, left sided weakness, numbness, paresthesia, pre-existing deficit, right sided numbness, right sided weakness, seizure, speech problems, tingling, tremors, we akness, others Musculoskeletal: denies: back pain, gout, joint pain, joint swelling, muscle pain, muscle stiffness, neck pain, others Integumetry: denies: bruises, change in color, change in hair/nails, dryness, laceration, lesions, lumps, rash, wounds, others Allergic/Immunocompromised: denies: Difficulty Healing, Frequent Infections, Hives, Itching, others Hematologic/Lymphatic: denies: anemia, blood clots, easy bleeding, easy bruising, swollen glands, others Endocrine: denies: excessive hunger, excessive sweating, excessive thirst, excessive urination, flushing, intolerance to cold, intolerance to heat, unexplained weight gain, unexplained weight loss, others Psychiatric: denies: anxiety, bipolar disorder, depression, hopeless, panic disorder, schizophrenia, sleepless, suicidal, others All Other Systems: Reviewed and Negative Physical Exam General Appearance: No Apparent Distress, Normal HEENT: Normal ENT Inspection, Pharynx Normal, TMs Normal Neck: Full Range of Motion, Non-Tender, Normal, Normal Inspection Respiratory: Chest Non-Tender, Lungs Clear, No Accessory Muscle Use, No Respiratory Distress, Normal Breath Sounds Cardiovascular: No Edema, No JVD, No Murmur, No Gallop, Normal Peripheral Pulses, Regular Rate/Rhythm Breast Exam: Deferred Gastrointestinal: No Organomegaly, Non Tender, No Pulsatile Mass, Normal Bowel Sounds, Soft Genitalia: Deferred Pelvic: Deferred Rectal: Deferred Extremities: No calf tenderness, Normal capillary refill, Normal inspection, Normal range of motion, Non-tender, No pedal edema Musculoskeletal : Apperance: Normal Neurologic: Alert, recreational specialist II-XII nml as Tested, No Motor Deficits, Normal Affect, Normal Mood, No Sensory Deficits Cerebellar Function: Normal Reflexes: Normal Skin: Dry, Normal Color, Warm Lymphatic: No Adenopathy Was a procedure done? Was a procedure done?: No Differential Dx Considerations may include: Tube removal X-Ray, Labs, Meds, VS Vital Signs Date Time Temp Pulse Resp B/P (MAP) Pulse Ox O2 Delivery O2 Flow Rate FiO2 09/13/24 10:30 71 19 99 Room Air* 0 21 09/13/24 10:30 97.9 71 19 142/77 (98) 99 97.9 09/13/24 08:37 98.5 78 16 141/99 (113) 97 98.5 Lab Test 09/13/24 10:17 Range/Units White Blood Count 8.3 4.4-10.8 10^3/uL Red Blood Count 4.67 4.5-5.90 10^6/uL Hemoglobin 14.4 13.5-17.5 g/dL Hematocrit 41.4 41.0-53.0 % Mean Corpuscular Volume 88.6 80.0-100.0 fL Mean Corpuscular Hemoglobin 30.9 28.0-32.0 pg Mean Corpuscular Hemoglobin Concent 34.8 32.0-36.0 g/dL Red Cell Distribution Width 14.6 H 11.8-14.3 % Platelet Count 271 140-450 10^3/uL Mean Platelet Volume 7.4 6.9-10.8 fL Neutrophils (%) (Auto) 43.1 37.0-80.0 % Lymphocytes (%) (Auto) 44.6 10.0-50.0 % Monocytes (%) (Auto) 6.1 0.0-12.0 % Eosinophils (%) (Auto) 5.5 0.0-7.0 % Basophils (%) (Auto) 0.7 0.0-2.0 % Neutrophils # (Auto) 3.6 1.6-8.6 10 ^3/uL Lymphocytes # (Auto) 3.7 0.4-5.4 10 ^3/uL Monocytes # (Auto) 0.5 0-1.3 10 ^3/uL Eosinophils # (Auto) 0.5 0-0.8 10 ^3/uL Basophils # (Auto) 0.1 0-0.2 10 ^3/uL Nucleated Red Blood Cells 0.1 % Sodium Level 135 L 136-145 mmol/L Potassium Level 4.1 3.5-5.1 mmol/L Chloride Level 101 98-107 mmol/L Carbon Dioxide Level 28 20-31 mmol/L Anion Gap 6 5-15 Blood Urea Nitrogen 9 9-23 mg/dL Creatinine 0.94 0.700-1.30 mg/dL Glomerular Filtration Rate Calc 106 >90 mL/min BUN/Creatinine Ratio 9.6 L 10.0-20.0 Serum Glucose 92 74-106 mg/dL Calcium Level 10.2 8.7-10.4 mg/dL Time of 1ST Reevaluation: 10:32 Reevaluation 1ST: Unchanged Patient Education/Counseling: Diagnosis, Treatment, Prognosis Family Education/Counseling: No Family Present Additional Information The following tests were ordered, and results were reviewed by me: BMP, CBC, CT AB PEL WO CON I reviewed and agreed with the following test results read by other providers: CT AB PEL WO CON I discussed treatment and results with medical personnel and: Patient Comprehensive systems review obtained and negative except for what is stated in the HPI. Departure 1 Departure Time of Disposition: 14:07 (Patient is to was removed by Radiology. We will discharge patient home with outpatient follow up) Impression: Primary Impression: Encounter for change or removal of drains Disposition: HOME / SELF CARE / HOMELESS Condition: Stable e-Prescriptions No Active Prescriptions or Reported Meds Critical Care Note Critical Care Time?: No Stability Stability form required: No I personally scribed for DEONTE HAYDEN MD ([email or web address]) on 09/13/24 at 10:46. Electronically submitted by Alethea Wilks ([email or web address]). I personally scribed for DEONTE HAYDEN MD ([email or web address]) on 09/13/24 at 11:11. Electronically submitted by Alethea Wilks ([email or web address]). DEONTE HAYDEN MD Sep 13, 2024 10:46
[2024-09-13 10:49] LABS: Basophils # (auto) 0.1 10 ^3/uL (0-0.2); Basophils % (auto) 0.7 % (0.0-2.0); Eosinophils # (auto) 0.5 10 ^3/uL (0-0.8); Eosinophils % (auto) 5.5 % (0.0-7.0); Hematocrit 41.4 % (41.0-53.0); Hemoglobin 14.4 g/dL (13.5-17.5); Lymphocytes # (auto) 3.7 10 ^3/uL (0.4-5.4); Lymphocytes % (auto) 44.6 % (10.0-50.0); Mean Corpuscular Hemoglobin 30.9 pg (28.0-32.0); Mean Corpuscular Hgb Conc. 34.8 g/dL (32.0-36.0); Mean Corpuscular Volume 88.6 fL (80.0-100.0); Monocytes # (auto) 0.5 10 ^3/uL (0-1.3); Monocytes % (auto) 6.1 % (0.0-12.0); Neutrophils # (auto) 3.6 10 ^3/uL (1.6-8.6); Neutrophils % (auto) 43.1 % (37.0-80.0); Nucleated Red Blood Cells % 0.1 %; Platelet Count (auto) 271 10^3/uL (140-450); Red Blood Cells 4.67 10^6/uL (4.5-5.90); Red Cell Distribution Width 14.6 % (11.8-14.3); White Blood Cell 8.3 10^3/uL (4.4-10.8)
[2024-09-13 10:50] LABS: Chloride 101 mmol/L (98-107); Potassium 4.1 mmol/L (3.5-5.1)
[2024-09-13 10:51] LABS: Anion Gap 6 (5-15); Calcium 10.2 mg/dL (8.7-10.4); Carbon Dioxide 28 mmol/L (20-31)
[2024-09-13 10:56] LABS: BUN/Creatinine Ratio 9.6 (10.0-20.0); Blood Urea Nitrogen 9 mg/dL (9-23); Glucose 92 mg/dL (74-106); Sodium 135 mmol/L (136-145)
--- NOTE | 2024-09-13 13:45 | DVH ---
CT ABDOMEN WITHOUT CONTRAST CLINICAL HISTORY: REMOVAL OF ABD DRAIN TECHNIQUE: Multiple contiguous axial images of the abdomen without intravenous contrast. The images were reformatted degenerate coronal and sagittal reconstructions. All CT scans at this medical facility are performed using dose modulation techniques as appropriate t o a performed exam including the following:Automated exposure control was utilized; adjustment of the MA and/or KV according to patient size; and use of iterative reconstruction technique. Radiation Dose Information: CT Dose: CTDI volume is 24.96 mGy. Dose-length product is 3567.38 mGy*cm Comparison: CT CT AB PEL WO CON-NO ORAL OR IV on DOS: 07/14/24 FINDINGS: Evaluation of the abdomen and pelvis is limited without intravenous contrast. There is a drainage catheter with the distal pigtail along the posterior right hepatic lobe. There is no discrete fluid collection to suggest residual abscess. The remainder of the liver appears within normal limits. The gallbladder, pancreas, kidneys, adrenal glands, and spleen appear within normal limits. There is no gross evidence of abdominal lymphadenopathy. There is no free fluid or free air. The stomach grossly appears unremarkable. The visualized small and large bowel loops demonstrate nor mal caliber. The abdominal aorta and IVC appear within normal limits. The visualized lung bases are clear. There is no acute osseous abnormality. IMPRESSION: 1. Drainage catheter with the distal pigtail along the posterior right hepatic lobe. There is no disc rete fluid collection to suggest residual abscess. HS:Y
== END 2024-09-13 14:29 | disposition left against medical advice (07) ==
LOC: ER 08:23
DX: T85.9XXA Unspecified complication of internal prosthetic device, implant and graft, initial encounter (principal); F17.210 Nicotine dependence, cigarettes, uncomplicated; F12.90 Cannabis use, unspecified, uncomplicated; Y92.89 Other specified places as the place of occurrence of the external cause
CPT/HCPCS: 36415; 74176; 80048; 85025